=== PATIENT | female | born 1940 | race Caucasian/White ===

== ENCOUNTER 2019-04-26 15:18 | Inpatient (IN) ==
--- NOTE | 2019-04-26 15:29 | Emergency Department Note ---
Disposition Clinical Impression: Atrial fibrillation with rapid ventricular response Pulmonary embolism Qualifiers: Pulmonary embolism type: other Chronicity: acute Acute cor pulmonale presence: without acute cor pulmonale Qualified Code(s): I26.99 - Other pulmonary embolism without acute cor pulmonale Congestive heart failure Qualifiers: Heart failure type: high output Qualified Code(s): I50.83 - High output heart failure Disposition: Admitted As Inpatient Condition: Fair Time of Disposition: 01:08 SOB HPI - General Chief Complaint: ED Shortness of Breath/Dyspnea Stated Complaint: SHEILA Time Seen by Provider: 04/26/19 15:22 Source: patient, family, EMS Mode of arrival: EMS Limitations: no limitations Nursing Notes Reviewed: Yes Vital Signs Reviewed: Yes - History of Present Illness 78-year-old female, past medical history of diabetes, hypertension, hypercholesterolemia, frequent urinary tract infections currently treated by [facility], remote history of endometrial cancer with chemotherapy radiation a complete hysterectomy in 2007. No known history of congestive heart failure p resenting for 2 day history of gradually progressively worsening bilateral lower extremity swelling with rapidly progressing worsening shortness of breath today while at her PCPs office. Patient states she currently has no lightheadedness or dizziness, she has no chest pain, she is otherwise in no acute distress, or sating well without conversational dyspnea. Pt Subjective Complaint: shortness of breath Onset (ago): day(s) Context: recent illness Severity: moderate Consistency/Duration: gradually worsening Improves with: oxygen Worsens with: exertion Known history of: diabetes Associated symptoms: Reports: denies other symptoms (Lungs) Treatment prior to arrival: oxygen Cough present: No (Ur is a) - Related Data Home oxygen amount: none Home Medications Medication Instructions Recorded Confirmed Atenolol [Tenormin] 50 mg PO HS 04/26/19 04/26/19 Lisinopril [Zestril] 5 mg PO BID 04/26/19 04/26/19 metFORMIN [Glucophage] 1,000 mg PO BIDWM 04/26/19 04/26/19 Allergies Allergy/AdvReac Type Severity Reaction Status Date / Time No Known Allergies Allergy Verified 04/26/19 15:22 Review of Systems: *See History of Present Illness for more detail Constitutional: Denies: fever, chills Cardiovascular: Denies: chest pain Respiratory: Patient admits to progressive dyspnea. Denies: cough, hemoptysis Gastrointestinal: Denies: abdominal pain, nausea, vomiting, diarrhea, constipation, hematemesis, melena, hematochezia Genitourinary: Denies: hematuria Musculoskeletal: Patient admits to bilateral lower extremity swelling Denies: back pain, neck pain Neurological: Denies: headache, weakness, lightheadedness/dizziness, numbness, paresthesias, difficulty with ambulation. Endocrine: Denies: fatigue All systems ED: reviewed and negative except as stated. Review of Systems: As Per HPI Physical Exam Constitutional: No acute distress, [id number], engaged to conversation, speech is fluid, answers questions appropriately Neuro: GCS 15, no overt focal neurological deficits Head: Atraumatic, normocephalic Eyes: Pupils equal, round and reactive to light, no scleral icterus, no conjunctival injection Neck: Trachea midline without deviation. Anterior neck is supple without s welling. *Chest: Symmetric chest wall rise *Heart: Cardiac rhythm and rate are regular with S1 and S2 , no S3 or S4 appreciated, no murmurs, gallops, rubs, or clicks. *Lungs: Lungs are clear to auscultation bilaterally, without accessory muscle use or prolonged expiratory phase. No wheezes, rhonchi or stridor appreciated. Abdomen: Abdomen is flat, soft to palpation, normal bowel sounds. No abdominal bruit auscultated. Non-distended, non-rigid, no organomegaly, no ascites appreciated. No pulsatile mass, no tenderness or guarding to palpation in all four quadrants, no rebound Extremities: 2+ pitting edema noted in bilateral lower extremities. Pulses/motor intact in all 4 extremities. Psychiatric exam: Patient displays a normal affect and mood for the environment. No overt signs of hallucination. Integumentary: There is 2+ pitting edema noted in bilateral lower extremity up to the knees. Skin is otherwise warm, dry, intact, normal color. No rash, cyanosis, diaphoresis, erythema, or pallor - General Limitations: no limitations General appearance: alert, in no apparent distress Course Course Narrative: Patient has no history of congestive heart failure, she does have hypertension, hypercholesterolemia and diabetes. Concern for new onset heart failure we will establish IV at this time and attempted vagal maneuvers for the management of tachycardia. Patient does not respond to this we will begin chemical cardioversion issues currently asymptomatic. Otherwise laboratory analysis to include CBC, BMP, BNP, d-dimer, troponin, EKG/old EKG, chest x-ray. - Reevaluation(s) Reevaluation #1: 1600: We attempted chemical cardioversion with adenosine after sledding risks and benefits with the patient and her at bedside. The patient verbally consented to this procedure and cardioversion was attempted with 12 mg of adenosine with saline flush and appropriate elevation of the extremity. The patient did cardiovert into the 80 bpm range and we noted a sinus rhythm at that time. The patient spontaneously proceeded back to a supraventricular tachycardia at a rate of 150 bpm. Patient did have some discomfort with dyspnea and chest heaviness during the procedure which resolved spontaneously quickly after the procedure was completed. The patient was amiable to further doses of adenosine at this time we will proceed to Cardizem bolus with drip initiated for the management of supraventricular tachycardia. The patient heart at bedside verbalized their understanding and agreement this plan. Reevaluation #2: 1710: Patient found to have elevated d-dimer and hypokalemia with potassium level 3.1. I have added 40 mEq of by mouth potassium at this point for replacement. Patient will be sent to CT for CT angiogram of the chest due to concern for blood clot. Vital Signs Temperature 99.2 F 04/26/19 15:22 Pulse Rate 151 04/26/19 15:22 Respiratory Rate 20 04/26/19 15:22 Blood Pressure 159/110 04/26/19 15:22 O2 Sat by Pulse Oximetry 97 04/26/19 15:22 Temperature 98.1 F 04/26/19 22:39 Pulse Rate 151 04/26/19 22:39 Respiratory Rate 19 04/26/19 22:39 Blood Pressure 159/90 04/26/19 22:39 O2 Sat by Pulse Oximetry 92 04/26/19 22:39 Oxygen Delivery Oxygen Delivery Nasal Cannula Procedures - Ultrasound-Other Narrative: Bedside ultrasound was performed by myself with images uploaded axis some interpreted by me. Patient's bedside echo shows no evidence of cor pulmonale, there is a small pericardial effusion noted with no evidence of tamponade. Shortness of Breath/Dyspnea - MDM Narrative Medical decision making narrative: Patient found to have elevated BNP consistent with CHF exacerbation, CTA shows multiple nonobstructing bilateral pulmonary embolism. Patient without right ventricular dilation on bedside ultrasound. Patient be admitted to hospital medicine service for further evaluation and management of new onset atrial fibrillation in the setting of pulmonary embolism and CHF. - Lab Data Lab results reviewed: Yes I reviewed the patient's lab results. Result diagrams: 04/26/19 15:36 04/26/19 15:36 Lab Results 04/26/19 04/26/19 04/26/19 Range/Units 15:36 15:36 15:36 WBC 11.9 H (4.3-11.1) K/mcL RBC 4.43 (3.82-4.97) M/mcL Hgb 13.0 (11.5-15.4) g/dL Hct 41.6 (35.3-44.9) % MCV 93.9 (83.0-100.0) fL MCH 29.3 (28.0-33.3) pg MCHC 31.3 L (31.6-35.5) g/dL RDW 15.9 H (11.5-14.5) % Plt Count 292 (140-400) K/mcL MPV 10.1 (9.4-12.4) fL Immature Gran % 0.5 (0-4) % Seg Neutrophils % 78.8 % Lymphocytes % 12.5 % Monocytes % 7.2 % Eosinophils % 0.8 % Basophils % 0.2 % Neutrophils # 9.4 H (1.6-8.9) K/mcL Lymphocytes # 1.5 (0.6-4.6) K/mcL Monocytes # 0.9 (0.0-1.3) K/mcL Eosinophils # 0.1 (0.0-0.6) K/mcL Basophils # 0.0 (0.0-0.2) K/mcL D-Dimer 802 H (0-500) ng/mLFEU Sodium 142 (136-145) mEq/L Potassium 3.1 L (3.5-5.1) mEq/L Chloride 102 (98-107) mEq/L Carbon Dioxide 26 (23-29) mEq/L BUN 10 (8-23) mg/dL Creatinine 0.72 (0.60-1.20) mg/dL Est GFR ( Amer) > 60 (> 60) Est GFR (Non-Af Amer) > 60 (> 60) BUN/Creatinine Ratio 14 (6-26) Glucose 123 H (70-105) mg/dL Calculated Osmolality 294 (280-300) Calcium 9.0 (8.6-10.3) mg/dL Troponin I < 0.03 (< 0.04) ng/mL B-Natriuretic Peptide (Less than 100) pg/mL Urine Color (Yellow) Urine Clarity (Clear) Urine pH (5.0-8.0) pH Units Ur Specific Bent (1.010-1.025) Urine Protein (Neg-Trace) mg/dL Urine Glucose (UA) (Normal) mg/dL Urine Ketones (Negative) mg/dL Urine Blood (Negative) Urine Nitrite (Negative) Urine Bilirubin (Negative) Urine Urobilinogen (Normal) mg/dL Ur Leukocyte Esterase (Negative) Urine Microscopic RBC (0-3) per hpf Urine Microscopic WBC (0-3) per hpf Ur Squamous Epith Cells (None-Few) per lpf Urine Bacteria (None-Few) per hpf Hyaline Casts (None-Few) per lpf Ur Culture Indicated? (NO) 04/26/19 04/26/19 Range/Units 15:36 20:54 WBC (4.3-11.1) K/mcL RBC (3.82-4.97) M/mcL Hgb (11.5-15.4) g/dL Hct (35.3-44.9) % MCV (83.0-100.0) fL MCH (28.0-33.3) pg MCHC (31.6-35.5) g/dL RDW (11.5-14.5) % Plt Count (140-400) K/mcL MPV (9.4-12.4) fL Immature Gran % (0-4) % Seg Neutrophils % % Lymphocytes % % Monocytes % % Eosinophils % % Basophils % % Neutrophils # (1.6-8.9) K/mcL Lymphocytes # (0.6-4.6) K/mcL Monocytes # (0.0-1.3) K/mcL Eosinophils # (0.0-0.6) K/mcL Basophils # (0.0-0.2) K/mcL D-Dimer (0-500) ng/mLFEU Sodium (136-145) mEq/L Potassium (3.5-5.1) mEq/L Chloride (98-107) mEq/L Carbon Dioxide (23-29) mEq/L BUN (8-23) mg/dL Creatinine (0.60-1.20) mg/dL Est GFR ( Amer) (> 60) Est GFR (Non-Af Amer) (> 60) BUN/Creatinine Ratio (6-26) Glucose (70-105) mg/dL Calculated Osmolality (280-300) Calcium (8.6-10.3) mg/dL Troponin I (< 0.04) ng/mL B-Natriuretic Peptide 203 H (Less than 100) pg/mL Urine Color Yellow (Yellow) Urine Clarity Cloudy A (Clear) Urine pH 5.0 (5.0-8.0) pH Units Ur Specific Bent 1.029 H (1.010-1.025) Urine Protein Negative (Neg-Trace) mg/dL Urine Glucose (UA) Normal (Normal) mg/dL Urine Ketones Trace H (Negative) mg/dL Urine Blood Small H (Negative) Urine Nitrite Positive A (Negative) Urine Bilirubin Negative (Negative) Urine Urobilinogen Normal (Normal) mg/dL Ur Leukocyte Esterase Large H (Negative) Urine Microscopic RBC 5-15 H (0-3) per hpf Urine Microscopic WBC TNTC H (0-3) per hpf Ur Squamous Epith Cells Many H (None-Few) per lpf Urine Bacteria Moderate H (None-Few) per hpf Hyaline Casts None Seen (None-Few) per lpf Ur Culture Indicated? YES A (NO) - Radiology Data Radiology results reviewed: Yes I reviewed the patient's radiology results. Chest X-Ray 04/26/19 15:26 IMPRESSION: Findings of pulmonary edema with small-moderate bilateral pleural effusions and bibasilar atelectasis. D/ / Zackary Hodges MD / Zackary Hodges MD Interpreting Provider: Zackary Hodges MD Chest CTA 04/26/19 17:09 IMPRESSION: Moderate right pleural effusion and small left pleural effusion. Diffuse ground-glass opacity, likely reflecting edema. Intermittent occlusion of bibasilar bronchi, suggestive of mucous plugging/airways disease. Consolidation within bilateral lower lobes, lingula, right middle lobe, likely atelectasis in the absence of clinical signs or symptoms of pneumonia. Findings are suggestive of small nonocclusive emboli within the right upper and left lower lobes. 9 mm indeterminate left upper lobe pulmonary nodule. 2 cm low-density right lower lobe nodule which may be cystic, a chronic, or reflect pseudotumor. Chest CT follow-up after treatment and resolution of acute symptoms is recommended. 2 cm right adrenal gland nodule, indeterminate by CT criteria. In the nonacute setting, adrenal protocol CT could be considered for further assessment. Moderate hiatal hernia. Findings were discussed with Alirio Padilla at 19:05 on 04/26/2019. D/ / Triston Levine MD / Triston Levine MD Interpreting Provider: Triston Levine MD - EKG Data EKG attestation: Yes I reviewed and interpreted this EKG. EKG results narrative: 1530: Patient EKG shows a supraventricular tachycardia with a heart of 150 bpm, MD interval of 131 ms, QS duration 70 ms, QT/QTc intervals of 296/468 ms respectively. There are no significant ST segment elevations, depressions, pathologic Q waves, abnormal T-wave inversion, nor any sense acute ischemic change. This EKG that was performed today is generally consistent in morphology with prior EKG performed on 06/26/2013. 1545: Patient EKG performed during adenosine administration shows atrial flutter with a predominant 21 AV block with a heart rate of 143 bpm, chemistries rate 1 ms, QT/QTc interval 312/4 to most things. I do not agree with [employer] interpretation of this rhythm and feel that this represents atrial fibrillation. There are still no signs of acute ischemic change and EKG is generally consistent in morphology with priors. 1608: After chemical cardioversion with Cardizem the patient's EKG shows an atrial flutter with heart rate of 1 28 bpm, QS duration of 85 ms, QT/QTc interval 308/450 ms respectively. I do not agree with the [employer] analysis of this rhythm and instead find it to be atrial fibrillation. There is still no acute ischemic change noted on the EKG analysis.
[2019-04-26] MEDS ORDERED: *HR* Adenosine 6 MG/2 ML SYRINGE IVP ONE (15:38)
[2019-04-26 16:01] LABS: Basophils % 0.2 %; Eosinophils # 0.1 K/mcL (0.0-0.6); Eosinophils % 0.8 %; Hematocrit 41.6 % (35.3-44.9); Immature Granulocytes % 0.5 % (0-4); Lymphocytes # 1.5 K/mcL (0.6-4.6); Lymphocytes % 12.5 %; Mean Corpuscular HGB Conc 31.3 g/dL (31.6-35.5); Mean Corpuscular Hemoglobin 29.3 pg (28.0-33.3); Mean Corpuscular Volume 93.9 fL (83.0-100.0); Mean Platelet Volume 10.1 fL (9.4-12.4); Monocytes # 0.9 K/mcL (0.0-1.3); Monocytes % 7.2 %; Neutrophils # 9.4 K/mcL (1.6-8.9); Platelet Count 292 K/mcL (140-400); Red Blood Count 4.43 M/mcL (3.82-4.97); Red Cell Distribution Width 15.9 % (11.5-14.5); Segmented Neutrophils % 78.8 %; White Blood Count 11.9 K/mcL (4.3-11.1)
[2019-04-26 16:20] LABS: BUN/Creatinine Ratio 14 (6-26); Blood Urea Nitrogen 10 mg/dL (8-23); Carbon Dioxide 26 mEq/L (23-29); Chloride 102 mEq/L (98-107); Glucose 123 mg/dL (70-105); Osmolality,Calculated 294 (280-300); Potassium 3.1 mEq/L (3.5-5.1); Sodium 142 mEq/L (136-145); eGFR For African Americans > 60 (> 60); eGFR For Non-African Americans > 60 (> 60)
[2019-04-26 16:21] LABS: Troponin I < 0.03 ng/mL (< 0.04)
[2019-04-26] MEDS ORDERED: Isovue-370 500 ML BOTTLE IVP ONE (17:09)
[2019-04-26] MEDS ORDERED: *HR* Enoxaparin 120 MG/0.8 ML SYRINGE SQ STA (19:27)
--- NOTE | 2019-04-26 19:38 | Emergency Department Note ---
Disposition Clinical Impression: Atrial fibrillation with rapid ventricular response Pulmonary embolism Qualifiers: Pulmonary embolism type: other Chronicity: acute Acute cor pulmonale presence: without acute cor pulmonale Qualified Code(s): I26.99 - Other pulmonary embolism without acute cor pulmonale Congestive heart failure Qualifiers: Heart failure type: unspecified Qualified Code(s): I50.9 - Disposition: Admitted As Inpatient Condition: Fair Time of Disposition: 01:08 General Adult HPI - General Chief complaint: ED Shortness of Breath/Dyspnea Stated complaint: SHEILA Time Seen by Provider: 04/26/19 15:22 Source: patient, family, EMS Mode of arrival: EMS Limitations: no limitations - History of Present Illness Pain Scale: 5 - Related Data Home Medications Medication Instructions Recorded Confirmed Atenolol [Tenormin] 50 mg PO HS 04/26/19 04/26/19 Lisinopril [Zestril] 5 mg PO BID 04/26/19 04/26/19 metFORMIN [Glucophage] 1,000 mg PO BIDWM 04/26/19 04/26/19 Allergies Allergy/AdvReac Type Severity Reaction Status Date / Time No Known Allergies Allergy Verified 04/26/19 15:22 Past Medical History - Past Medical History Medical history: Reports: cancer, diabetes, hypertension Psychiatric history: Reports: no psych history - Social History Smoking Status: Former smoker Alcohol use: Reports: occasionally Drug use: Reports: none Physical Exam - General Limitations: no limitations General appearance: alert, in no apparent distress Course Vital Signs Temperature 99.2 F 04/26/19 15:22 Pulse Rate 151 04/26/19 15:22 Respiratory Rate 20 04/26/19 15:22 Blood Pressure 159/110 04/26/19 15:22 O2 Sat by Pulse Oximetry 97 04/26/19 15:22 Temperature 97.9 F 04/27/19 12:09 Pulse Rate 146 04/27/19 12:09 Respiratory Rate 18 04/27/19 12:09 Blood Pressure 128/61 04/27/19 12:09 O2 Sat by Pulse Oximetry 92 04/27/19 12:09 Oxygen Delivery Oxygen Delivery Nasal Cannula Medical Decision Making - Lab Data Result diagrams: 04/27/19 03:13 04/27/19 03:13 Lab Results 04/26/19 04/26/19 04/26/19 Range/Units 15:36 15:36 15:36 WBC 11.9 H (4.3-11.1) K/mcL RBC 4.43 (3.82-4.97) M/mcL Hgb 13.0 (11.5-15.4) g/dL Hct 41.6 (35.3-44.9) % MCV 93.9 (83.0-100.0) fL MCH 29.3 (28.0-33.3) pg MCHC 31.3 L (31.6-35.5) g/dL RDW 15.9 H (11.5-14.5) % Plt Count 292 (140-400) K/mcL MPV 10.1 (9.4-12.4) fL Immature Gran % 0.5 (0-4) % Seg Neutrophils % 78.8 % Lymphocytes % 12.5 % Monocytes % 7.2 % Eosinophils % 0.8 % Basophils % 0.2 % Neutrophils # 9.4 H (1.6-8.9) K/mcL Lymphocytes # 1.5 (0.6-4.6) K/mcL Monocytes # 0.9 (0.0-1.3) K/mcL Eosinophils # 0.1 (0.0-0.6) K/mcL Basophils # 0.0 (0.0-0.2) K/mcL D-Dimer 802 H (0-500) ng/mLFEU Sodium 142 (136-145) mEq/L Potassium 3.1 L (3.5-5.1) mEq/L Chloride 102 (98-107) mEq/L Carbon Dioxide 26 (23-29) mEq/L BUN 10 (8-23) mg/dL Creatinine 0.72 (0.60-1.20) mg/dL Est GFR ( Amer) > 60 (> 60) Est GFR (Non-Af Amer) > 60 (> 60) BUN/Creatinine Ratio 14 (6-26) Glucose 123 H (70-105) mg/dL POC Glucose (70-99) mg/dL Est Mean Plasma Glucose mg/dl Hemoglobin A1c ( - 5.6) % Calculated Osmolality 294 (280-300) Calcium 9.0 (8.6-10.3) mg/dL Magnesium (1.6-2.6) mg/dL Troponin I < 0.03 (< 0.04) ng/mL B-Natriuretic Peptide (Less than 100) pg/mL Triglycerides (< 150) mg/dL Cholesterol (< 200) mg/dL LDL Cholesterol, Calc (0-99) mg/dL VLDL Cholesterol, Calc (< 31) mg/dL HDL Cholesterol (40-59) mg/dL Cholesterol/HDL Ratio (0-4.9) Urine Color (Yellow) Urine Clarity (Clear) Urine pH (5.0-8.0) pH Units Ur Specific [place] (1.010-1.025) Urine Protein (Neg-Trace) mg/dL Urine Glucose (UA) (Normal) mg/dL Urine Ketones (Negative) mg/dL Urine Blood (Negative) Urine Nitrite (Negative) Urine Bilirubin (Negative) Urine Urobilinogen (Normal) mg/dL Ur Leukocyte Esterase (Negative) Urine Microscopic RBC (0-3) per hpf Urine Microscopic WBC (0-3) per hpf Ur Squamous Epith Cells (None-Few) per lpf Urine Bacteria (None-Few) per hpf Hyaline Casts (None-Few) per lpf Ur Culture Indicated? (NO) 04/26/19 04/26/19 04/26/19 Range/Units 15:36 20:54 21:51 WBC (4.3-11.1) K/mcL RBC (3.82-4.97) M/mcL Hgb (11.5-15.4) g/dL Hct (35.3-44.9) % MCV (83.0-100.0) fL MCH (28.0-33.3) pg MCHC (31.6-35.5) g/dL RDW (11.5-14.5) % Plt Count (140-400) K/mcL MPV (9.4-12.4) fL Immature Gran % (0-4) % Seg Neutrophils % % Lymphocytes % % Monocytes % % Eosinophils % % Basophils % % Neutrophils # (1.6-8.9) K/mcL Lymphocytes # (0.6-4.6) K/mcL Monocytes # (0.0-1.3) K/mcL Eosinophils # (0.0-0.6) K/mcL Basophils # (0.0-0.2) K/mcL D-Dimer (0-500) ng/mLFEU Sodium (136-145) mEq/L Potassium (3.5-5.1) mEq/L Chloride (98-107) mEq/L Carbon Dioxide (23-29) mEq/L BUN (8-23) mg/dL Creatinine (0.60-1.20) mg/dL Est GFR ( Amer) (> 60) Est GFR (Non-Af Amer) (> 60) BUN/Creatinine Ratio (6-26) Glucose (70-105) mg/dL POC Glucose (70-99) mg/dL Est Mean Plasma Glucose mg/dl Hemoglobin A1c ( - 5.6) % Calculated Osmolality (280-300) Calcium (8.6-10.3) mg/dL Magnesium 1.5 L (1.6-2.6) mg/dL Troponin I 0.04 H* (< 0.04) ng/mL B-Natriuretic Peptide 203 H (Less than 100) pg/mL Triglycerides (< 150) mg/dL Cholesterol (< 200) mg/dL LDL Cholesterol, Calc (0-99) mg/dL VLDL Cholesterol, Calc (< 31) mg/dL HDL Cholesterol (40-59) mg/dL Cholesterol/HDL Ratio (0-4.9) Urine Color Yellow (Yellow) Urine Clarity Cloudy A (Clear) Urine pH 5.0 (5.0-8.0) pH Units Ur Specific [place] 1.029 H (1.010-1.025) Urine Protein Negative (Neg-Trace) mg/dL Urine Glucose (UA) Normal (Normal) mg/dL Urine Ketones Trace H (Negative) mg/dL Urine Blood Small H (Negative) Urine Nitrite Positive A (Negative) Urine Bilirubin Negative (Negative) Urine Urobilinogen Normal (Normal) mg/dL Ur Leukocyte Esterase Large H (Negative) Urine Microscopic RBC 5-15 H (0-3) per hpf Urine Microscopic WBC TNTC H (0-3) per hpf Ur Squamous Epith Cells Many H (None-Few) per lpf Urine Bacteria Moderate H (None-Few) per hpf Hyaline Casts None Seen (None-Few) per lpf Ur Culture Indicated? YES A (NO) 04/26/19 04/26/19 04/27/19 Range/Units 21:51 22:32 03:13 WBC (4.3-11.1) K/mcL RBC (3.82-4.97) M/mcL Hgb (11.5-15.4) g/dL Hct (35.3-44.9) % MCV (83.0-100.0) fL MCH (28.0-33.3) pg MCHC (31.6-35.5) g/dL RDW (11.5-14.5) % Plt Count (140-400) K/mcL MPV (9.4-12.4) fL Immature Gran % (0-4) % Seg Neutrophils % % Lymphocytes % % Monocytes % % Eosinophils % % Basophils % % Neutrophils # (1.6-8.9) K/mcL Lymphocytes # (0.6-4.6) K/mcL Monocytes # (0.0-1.3) K/mcL Eosinophils # (0.0-0.6) K/mcL Basophils # (0.0-0.2) K/mcL D-Dimer (0-500) ng/mLFEU Sodium (136-145) mEq/L Potassium (3.5-5.1) mEq/L Chloride (98-107) mEq/L Carbon Dioxide (23-29) mEq/L BUN (8-23) mg/dL Creatinine (0.60-1.20) mg/dL Est GFR ( Amer) (> 60) Est GFR (Non-Af Amer) (> 60) BUN/Creatinine Ratio (6-26) Glucose (70-105) mg/dL POC Glucose 154 H (70-99) mg/dL Est Mean Plasma Glucose 157 mg/dl Hemoglobin A1c 7.1 H ( - 5.6) % Calculated Osmolality (280-300) Calcium (8.6-10.3) mg/dL Magnesium (1.6-2.6) mg/dL Troponin I 0.03 (< 0.04) ng/mL B-Natriuretic Peptide (Less than 100) pg/mL Triglycerides (< 150) mg/dL Cholesterol (< 200) mg/dL LDL Cholesterol, Calc (0-99) mg/dL VLDL Cholesterol, Calc (< 31) mg/dL HDL Cholesterol (40-59) mg/dL Cholesterol/HDL Ratio (0-4.9) Urine Color (Yellow) Urine Clarity (Clear) Urine pH (5.0-8.0) pH Units Ur Specific [place] (1.010-1.025) Urine Protein (Neg-Trace) mg/dL Urine Glucose (UA) (Normal) mg/dL Urine Ketones (Negative) mg/dL Urine Blood (Negative) Urine Nitrite (Negative) Urine Bilirubin (Negative) Urine Urobilinogen (Normal) mg/dL Ur Leukocyte Esterase (Negative) Urine Microscopic RBC (0-3) per hpf Urine Microscopic WBC (0-3) per hpf Ur Squamous Epith Cells (None-Few) per lpf Urine Bacteria (None-Few) per hpf Hyaline Casts (None-Few) per lpf Ur Culture Indicated? (NO) 04/27/19 04/27/19 04/27/19 Range/Units 03:13 03:13 03:13 WBC 10.7 (4.3-11.1) K/mcL RBC 4.08 (3.82-4.97) M/mcL Hgb 11.8 (11.5-15.4) g/dL Hct 39.0 (35.3-44.9) % MCV 95.6 (83.0-100.0) fL MCH 28.9 (28.0-33.3) pg MCHC 30.3 L (31.6-35.5) g/dL RDW 15.9 H (11.5-14.5) % Plt Count 290 (140-400) K/mcL MPV 10.0 (9.4-12.4) fL Immature Gran % 0.6 (0-4) % Seg Neutrophils % 81.4 % Lymphocytes % 8.9 % Monocytes % 8.2 % Eosinophils % 0.6 % Basophils % 0.3 % Neutrophils # 8.7 (1.6-8.9) K/mcL Lymphocytes # 1.0 (0.6-4.6) K/mcL Monocytes # 0.9 (0.0-1.3) K/mcL Eosinophils # 0.1 (0.0-0.6) K/mcL Basophils # 0.0 (0.0-0.2) K/mcL D-Dimer (0-500) ng/mLFEU Sodium 143 (136-145) mEq/L Potassium 3.3 L (3.5-5.1) mEq/L Chloride 104 (98-107) mEq/L Carbon Dioxide 29 (23-29) mEq/L BUN 7 L (8-23) mg/dL Creatinine 0.75 (0.60-1.20) mg/dL Est GFR ( Amer) > 60 (> 60) Est GFR (Non-Af Amer) > 60 (> 60) BUN/Creatinine Ratio 9 (6-26) Glucose 162 H (70-105) mg/dL POC Glucose (70-99) mg/dL Est Mean Plasma Glucose mg/dl Hemoglobin A1c ( - 5.6) % Calculated Osmolality 298 (280-300) Calcium 8.4 L (8.6-10.3) mg/dL Magnesium 1.4 L (1.6-2.6) mg/dL Troponin I (< 0.04) ng/mL B-Natriuretic Peptide 220 H (Less than 100) pg/mL Triglycerides 120 (< 150) mg/dL Cholesterol 147 (< 200) mg/dL LDL Cholesterol, Calc 84 (0-99) mg/dL VLDL Cholesterol, Calc 24 (< 31) mg/dL HDL Cholesterol 39 L (40-59) mg/dL Cholesterol/HDL Ratio 3.8 (0-4.9) Urine Color (Yellow) Urine Clarity (Clear) Urine pH (5.0-8.0) pH Units Ur Specific [place] (1.010-1.025) Urine Protein (Neg-Trace) mg/dL Urine Glucose (UA) (Normal) mg/dL Urine Ketones (Negative) mg/dL Urine Blood (Negative) Urine Nitrite (Negative) Urine Bilirubin (Negative) Urine Urobilinogen (Normal) mg/dL Ur Leukocyte Esterase (Negative) Urine Microscopic RBC (0-3) per hpf Urine Microscopic WBC (0-3) per hpf Ur Squamous Epith Cells (None-Few) per lpf Urine Bacteria (None-Few) per hpf Hyaline Casts (None-Few) per lpf Ur Culture Indicated? (NO) 04/27/19 Range/Units 05:53 WBC (4.3-11.1) K/mcL RBC (3.82-4.97) M/mcL Hgb (11.5-15.4) g/dL Hct (35.3-44.9) % MCV (83.0-100.0) fL MCH (28.0-33.3) pg MCHC (31.6-35.5) g/dL RDW (11.5-14.5) % Plt Count (140-400) K/mcL MPV (9.4-12.4) fL Immature Gran % (0-4) % Seg Neutrophils % % Lymphocytes % % Monocytes % % Eosinophils % % Basophils % % Neutrophils # (1.6-8.9) K/mcL Lymphocytes # (0.6-4.6) K/mcL Monocytes # (0.0-1.3) K/mcL Eosinophils # (0.0-0.6) K/mcL Basophils # (0.0-0.2) K/mcL D-Dimer (0-500) ng/mLFEU Sodium (136-145) mEq/L Potassium (3.5-5.1) mEq/L Chloride (98-107) mEq/L Carbon Dioxide (23-29) mEq/L BUN (8-23) mg/dL Creatinine (0.60-1.20) mg/dL Est GFR ( Amer) (> 60) Est GFR (Non-Af Amer) (> 60) BUN/Creatinine Ratio (6-26) Glucose (70-105) mg/dL POC Glucose 149 H (70-99) mg/dL Est Mean Plasma Glucose mg/dl Hemoglobin A1c ( - 5.6) % Calculated Osmolality (280-300) Calcium (8.6-10.3) mg/dL Magnesium (1.6-2.6) mg/dL Troponin I (< 0.04) ng/mL B-Natriuretic Peptide (Less than 100) pg/mL Triglycerides (< 150) mg/dL Cholesterol (< 200) mg/dL LDL Cholesterol, Calc (0-99) mg/dL VLDL Cholesterol, Calc (< 31) mg/dL HDL Cholesterol (40-59) mg/dL Cholesterol/HDL Ratio (0-4.9) Urine Color (Yellow) Urine Clarity (Clear) Urine pH (5.0-8.0) pH Units Ur Specific [place] (1.010-1.025) Urine Protein (Neg-Trace) mg/dL Urine Glucose (UA) (Normal) mg/dL Urine Ketones (Negative) mg/dL Urine Blood (Negative) Urine Nitrite (Negative) Urine Bilirubin (Negative) Urine Urobilinogen (Normal) mg/dL Ur Leukocyte Esterase (Negative) Urine Microscopic RBC (0-3) per hpf Urine Microscopic WBC (0-3) per hpf Ur Squamous Epith Cells (None-Few) per lpf Urine Bacteria (None-Few) per hpf Hyaline Casts (None-Few) per lpf Ur Culture Indicated? (NO) Attestation Statement - Attestation Attestation: I examined this patient and my medical decision-making was reviewed with the Resident Physician. I agree with the documented findings, disposition and treatment plan as described except to the extent set forth below. Patient presents with a narrow complex regular tachycardia at 150 bpm with minimal to no [id number] variability. No chest pain, shortness of breath, lightheadedness, dizziness, syncope or presyncope. 12 mg of adenosine was adm inistered which initially induced asystole, no sawtooth pattern was observed (somewhat surprisingly), and she converted back rather quickly into the narrow complex regular tachycardia with a rate of 150. IV diltiazem bolus was administered followed by a drip at 10 mg per hour. After a second bolus was given, the patient's heart rate had settled and around 100 bpm, but has been volatile since then. CT scan, which is done due to significantly elevated d- dimer, demonstrated bilateral pulmonary emboli. There was no CT evidence for right heart strain. I was present for Dr. Wilkinson's EKG interpretation as well as for his echocardiogram at bedside. She did not demonstrate echocardiographic signs of right heart strain. The right ventricular size was not enlarged, septal motion was normal. McConnel sign was negative. BNP is elevated at around 800. Troponin is negative. She is been anticoagulated (no contraindications for anticoagulation are present), and will be admitted. Critical care time: I was directly and primarily involved in the care of this patient for 40 minutes excluding procedures.
[2019-04-26 21:03] LABS: Bilirubin,Urine Negative (Negative); Blood,Urine Small (Negative); Clarity,Urine Cloudy (Clear); Color,Urine Yellow (Yellow); Glucose,Urine (UA) Normal (Normal); Ketones,Urine Trace mg/dL (Negative); Leukocyte Esterase,Urine Large (Negative); Nitrite,Urine Positive (Negative); Protein,Urine Negative (Neg-Trace); Specific Gravity,Urine 1.029 (1.010-1.025); Urobilinogen,Urine Normal (Normal)
[2019-04-26 21:04] LABS: Bacteria,Urine Moderate per hpf (None-Few); Hyaline Casts,Urine None Seen per lpf (None-Few); Squamous Epithelial Cell,Urine Many per lpf (None-Few); WBC,Urine TNTC per hpf (0-3)
[2019-04-26] MEDS ORDERED: Naloxone 0.4 MG/ML INJ IVP PRN (21:28)
[2019-04-26] MEDS ORDERED: D5% in Water 1,000 ML IVC PRN (21:32)
[2019-04-26] MEDS ORDERED: *HR* Dextrose 50 % in Water (Syg) 50 ML SYRINGE IVP PRN (21:32)
[2019-04-26] MEDS ORDERED: Dextrose Gel 15 GM/37.5 ML TUBE PO PRN ×2 (21:32)
[2019-04-26] MEDS ORDERED: *HR* Metoprolol 5 MG/5 ML VIAL IVP ONE (21:56)
[2019-04-26 22:18] LABS: Estimated Average Glucose 157 mg/dl
[2019-04-26] MEDS ORDERED: Furosemide 20 MG/2 ML VIAL IVP ONE (22:18)
--- NOTE | 2019-04-26 22:28 | Internal Med History&Physical ---
<Helio Charles - Last Filed: 04/26/19 23:06> Date of Encounter: 04/26/19 Time of Encounter: 21:20 Internal Medicine - H&P: HPI Chief complaint: Lower extremity swelling and SOB Admitted From: Emergency Dept Plans for Post Hospital Care: Home History of present illness: Ms. Coronado is a 78 year old female with history of diabetes, hypertension, endometrial cancer status post hysterectomy and treatment in 2007, chronic urinary tract infection with prophylactic antibiotic management by Dr. Hidalgo who presented to the ED with 2 day history of shortness of breath and bilateral lower extremity swelling. She says that approximately 2 days ago she started to notice swelling in her lower extremities which was worse on her right foot rapidly increased to include both of her lower extremities. In addition of this she was having worsening shortness of breath which also got rapidly worse and was very poor over the last day. She said that she also is noticing that her heart rate was getting fast. She says that she did notice that she had some shortness of breath associated with this but it was not exactly the normal shortness of breath that she has experienced in the past. She said more so, she felt that it was more difficult to take a deep breath and she would expect. She went to her primary care physician for workup, and she said that she was told that she needed to go to the hospital. She has not noticed any fevers, chills, sweats. She has no sick contacts. She has not noticed any changes in her blood glucose at home. Denies any cough, sputum production, hemoptysis. Overall she has no other acute complaints. She does have history of chronic urinary tract infection which is managed by Dr. Hidalgo and she is intermittently on antibiotics for prophylaxis. In the emergency department, the patient did have an EKG that showed rapid heart rate of 150 and appeared to be somewhat regular. She was concerning for SVT so the emergency department did one dose of adenosine which apparently did not break the rhythm. She was then placed on a diltiazem drip and the boluses of diltiazem did apparently bring her heart rate down in demonstrated atrial fibrillation with rapid ventricular response. She has, however remained in atrial fibrillation with rapid ventricular response with a rate near 150 at a rate of 20. The patient did have a CTA of the chest in the ED which demonstrated findings suggestive of small nonocclusive emboli in the right upper and left lower lobes as well as bibasilar atelectasis and suggestion of mucous plugging. She also did have moderate right pleural effusion and small left pleural effusion. The patient's labs were significant for WBC 11.9, K+ 3.1, and BNP 203. She will be admitted to medicine for further workup and management of Afib RVR and fluid overload. Past Med Surg Social Fam HX - Past Medical History Medical history: cancer, diabetes, hypertension Additional medical history: Endometrial CA Psychiatric history: no psych history - Social History Smoking Status: Former smoker Alcohol use: occasionally Drug use: none Internal Medicine - H&P: Meds Atenolol [Tenormin] 50 mg PO HS 04/26/19 [History] Lisinopril [Zestril] 5 mg PO BID 04/26/19 [History] metFORMIN [Glucophage] 1,000 mg PO BIDWM 04/26/19 [History] Allergy/AdvReac Type Severity Reaction Status Date / Time No Known Allergies Allergy Verified 04/26/19 15:22 All Systems PM: A 10-system review of systems was performed and is negative for pertinent findings except as documented above in the HPI. Review of systems: Constitutional: Denies fevers, chills, weight loss, generalized fatigue Head/Neck: Denies PENA, neck stiffness EENT: Denies vision changes/blurriness, rhinorrhea, congestion, sore throat CVS: Denies chest pain, palpitations. Admits to PROCTOR, orthopnea, PND for 2 days duration Pulm: Admits to sob. Denies cough, sputum production. GI: Denies abdominal pain, nausea, vomiting, constipation, melena, hematemasis. Admits to diarrhea which she associates with metformin. : Denies dysuria, increased frequency, urgency, hematuria Heme: Denies ease of bleeding or bruising MSK: Denies joint pain, limited ROM Skin: Denies rashes, ulcers, color changes Neuro: Denies PENA, paresthesias, focal deficits, ataxia - Constitutional Vitals: Temp Pulse Resp BP Pulse Ox 99.2 F 150 26 146/96 94 04/26/19 15:22 04/26/19 21:19 04/26/19 21:19 04/26/19 21:19 04/26/19 21:19 Exam: Gen: Vitals noted. No acute distress. Smell of urine present Eyes: anicteric sclerae, moist conjunctivae; no lid-lag; Pupils equal and re active to light HENT: Atraumatic; oropharynx clear with moist mucous membranes and no mucosal ulcerations; normal hard and soft palate Neck: Trachea midline; supple, no thyromegaly or lymphadenopathy Cardiac: RRR, no murmur, +S1/S2 Pulmonary: Diminished b/l with crackles in the bases b/l. No wheezes or rhonchi Abdomen: soft, tender to palpation in the upper abdomen, no guarding. No masses or hepatosplenomegaly MSK: ROM intact, no joint swelling noted Extremities: 1-2+ BLE edema (non-pitting), nontender calf, no cyanosis or clubbing. Erythema present, notably present on the left leg Skin: Normal temperature, turgor; no rash, ulcers or subcutaneous nodules Neuro: moves all extremities, no focal deficits. Psych: Appropriate mood and behavior. A&Ox3 Internal Med - H&P Results - Labs CBC & Chem 7: 04/26/19 15:36 04/26/19 15:36 Labs: Short CBC 04/26/19 Range/Units 15:36 WBC 11.9 H (4.3-11.1) K/mcL Hgb 13.0 (11.5-15.4) g/dL Hct 41.6 (35.3-44.9) % Plt Count 292 (140-400) K/mcL Neutrophils # 9.4 H (1.6-8.9) K/mcL BMP 04/26/19 15:36 Sodium 142 Potassium 3.1 L Chloride 102 Carbon Dioxide 26 BUN 10 Creatinine 0.72 Glucose 123 H Calcium 9.0 Cardiac Enzymes 04/26/19 Range/Units 15:36 Troponin I < 0.03 (< 0.04) ng/mL Urine 04/26/19 Range/Units 20:54 Urine Color Yellow (Yellow) Urine Clarity Cloudy A (Clear) Urine pH 5.0 (5.0-8.0) pH Units Ur Specific [place] 1.029 H (1.010-1.025) Urine Protein Negative (Neg-Trace) mg/dL Urine Glucose (UA) Normal (Normal) mg/dL - Impressions ITS Impressions Chest X-Ray 04/26/19 15:26 IMPRESSION: Findings of pulmonary edema with small-moderate bilateral pleural effusions and bibasilar atelectasis. D/ / Zackary Hodges MD / Zackary Hodges MD Interpreting Provider: Zackary Hodges MD Chest CTA 04/26/19 17:09 IMPRESSION: Moderate right pleural effusion and small left pleural effusion. Diffuse ground-glass opacity, likely reflecting edema. Intermittent occlusion of bibasilar bronchi, suggestive of mucous plugging/airways disease. Consolidation within bilateral lower lobes, lingula, right middle lobe, likely atelectasis in the absence of clinical signs or symptoms of pneumonia. Findings are suggestive of small nonocclusive emboli within the right upper and left lower lobes. 9 mm indeterminate left upper lobe pulmonary nodule. 2 cm low-density right lower lobe nodule which may be cystic, a chronic, or reflect pseudotumor. Chest CT follow-up after treatment and resolution of acute symptoms is recommended. 2 cm right adrenal gland nodule, indeterminate by CT criteria. In the nonacute setting, adrenal protocol CT could be considered for further assessment. Moderate hiatal hernia. Findings were discussed with Alirio Padilla at 19:05 on 04/26/2019. D/ / Triston Levine MD / Triston Levine MD Interpreting Provider: Triston Levine MD - Assessment and Plan (1) Atrial fibrillation with rapid ventricular response Current Visit: Yes Status: Acute Assessment and plan: Atrial fibrillation with rapid ventricular response, newly diagnosed Likely secondary to pulmonary status in setting of new PE Patient has HR of >150 on presentation Started on Cardizem Drip in ED at rate of 20 Required Lopressor push to control [id number] Plan Continue Cardizem drip Add Lopressor 25mg PO tonight, transition to Toprol XL in AM Replete potassium to 4 Cardiac monitoring Echo in AM Treat underlying PE with lovenox If Rate continues to be uncontrolled, consider digoxin vs amio Will likely require cardiology consult following complete workup (2) Pulmonary embolism Current Visit: Yes Status: Acute Assessment and plan: Pulmonary embolism, b/l, unprovoked Patient said she first noticed unilaterly right leg edema two days ago CTA shows nonobstructive b/l PE without infarcts or evidence of r/h strain No travel history, no active cancer diagnosis, no hormone treatment. Not a current smoker Patient has no evidence of SAGE or CKD, is a candidate of lovenox Will continue Lovenox, possibly transition to DOAC tomorrow Echo in AM Qualifiers: Pulmonary embolism type: other Chronicity: acute Acute cor pulmonale presence: without acute cor pulmonale Qualified Code(s): I26.99 - Other pu lmonary embolism without acute cor pulmonale (3) Congestive heart failure Current Visit: Yes Status: Acute Assessment and plan: Acute heart failure likely secondary to Afib RVR Patient has heart rate of 150, she says edema, SOB and Orthopnea began 2 days ago along with Rapid heart rate CTA shows pleural effusions, L>R. Physical exam significant for bibasilar crackles Likely in response to newly diagnosed PE Rate control with Cardizem and Metoprolol Lasix 20mg IVP daily Will get Echo in AM Trend troponins EKG in AM Likely cardiology consult Qualifiers: Heart failure type: high output Qualified Code(s): I50.83 - High output heart failure (4) Atelectasis of both lungs Current Visit: Yes Status: Acute Assessment and plan: As evidenced on CTA, do not suspect pneumonia based on clinical picture Will give incentive spirometer (5) Hypertension Current Visit: Yes Status: Acute Assessment and plan: Will be on cardizem drip and lopressor Resume home lisinopril if BP tolerates Qualifiers: Hypertension type: essential hypertension Qualified Code(s): I10 - Essential (primary) hypertension (6) Diabetes Current Visit: Yes Status: Acute Assessment and plan: Initiate sliding scale insulin with Q6h accucheck likely start basal insulin Qualifiers: Diabetes mellitus type: type 2 Diabetes mellitus exterminator helper termite insulin use: without exterminator helper termite use Diabetes mellitus complication status: without complication Qualified Code(s): E11.9 - Type 2 diabetes mellitus without complications (7) UTI (urinary tract infection) Current Visit: Yes Status: Chronic Assessment and plan: Chronic UTI, history of E. coli Previously treated with exterminator helper termite antibiotics by Dr. Hidalgo Will start on Rocephin pending cultures Qualifiers: Urinary tract infection type: acute cystitis Hematuria presence: without hematuria Qualified Code(s): N30.00 - Acute cystitis without hematuria (8) Diarrhea Current Visit: Yes Status: Acute Assessment and plan: Secondary to medication Qualifiers: Diarrhea type: unspecified type Qualified Code(s): R19.7 - Diarrhea, unspecified - Time Spent With Patient Total time spent is greater than 50% in coordination of care (as documented) at patient's floor/unit and/or counseling patient: <Shanon Cervantes Nicola - Last Filed: 04/27/19 08:09> Date of Encounter: 04/26/19 Internal Medicine - H&P: HPI History of present illness: Ms. Coronado is a 78 year old female Past Med Surg Social Fam HX - Family History Mother History Unknown: Yes All Systems PM: A 10-system review of systems was performed and is negative for pertinent findings except as documented above in the HPI. - Constitutional Vitals: Temp Pulse Resp BP Pulse Ox 97.8 F 99 18 129/65 90 04/27/19 07:39 04/27/19 07:39 04/27/19 07:39 04/27/19 07:39 04/27/19 07:39 Internal Med - H&P Results - Labs CBC & Chem 7: 04/27/19 03:13 04/27/19 03:13 Labs: Short CBC 04/26/19 04/27/19 Range/Units 15:36 03:13 WBC 11.9 H 10.7 (4.3-11.1) K/mcL Hgb 13.0 11.8 (11.5-15.4) g/dL Hct 41.6 39.0 (35.3-44.9) % Plt Count 292 290 (140-400) K/mcL Neutrophils # 9.4 H 8.7 (1.6-8.9) K/mcL BMP 04/26/19 04/27/19 15:36 03:13 Sodium 142 143 Potassium 3.1 L 3.3 L Chloride 102 104 Carbon Dioxide 26 29 BUN 10 7 L Creatinine 0.72 0.75 Glucose 123 H 162 H Calcium 9.0 8.4 L Cardiac Enzymes 04/26/19 04/26/19 04/27/19 Range/Units 15:36 21:51 03:13 Troponin I < 0.03 0.04 H* 0.03 (< 0.04) ng/mL Urine 04/26/19 Range/Units 20:54 Urine Color Yellow (Yellow) Urine Clarity Cloudy A (Clear) Urine pH 5.0 (5.0-8.0) pH Units Ur Specific [place] 1.029 H (1.010-1.025) Urine Protein Negative (Neg-Trace) mg/dL Urine Glucose (UA) Normal (Normal) mg/dL - Impressions ITS Impressions Chest X-Ray 04/26/19 15:26 IMPRESSION: Findings of pulmonary edema with small-moderate bilateral pleural effusions and bibasilar atelectasis. D/ / Zackary Hodges MD / Zackary Hodges MD Interpreting Provider: Zackary Hodges MD Chest CTA 04/26/19 17:09 IMPRESSION: Moderate right pleural effusion and small left pleural effusion. Diffuse ground-glass opacity, likely reflecting edema. Intermittent occlusion of bibasilar bronchi, suggestive of mucous plugging/airways disease. Consolidation within bilateral lower lobes, lingula, right middle lobe, likely atelectasis in the absence of clinical signs or symptoms of pneumonia. Findings are suggestive of small nonocclusive emboli within the right upper and left lower lobes. 9 mm indeterminate left upper lobe pulmonary nodule. 2 cm low-density right lower lobe nodule which may be cystic, a chronic, or reflect pseudotumor. Chest CT follow-up after treatment and resolution of acute symptoms is recommended. 2 cm right adrenal gland nodule, indeterminate by CT criteria. In the nonacute setting, adrenal protocol CT could be considered for further assessment. Moderate hiatal hernia. Findings were discussed with Alirio Padilla at 19:05 on 04/26/2019. D/ / Triston Levine MD / Triston Levine MD Interpreting Provider: Triston Levine MD - Time Spent With Patient Total time spent is greater than 50% in coordination of care (as documented) at patient's floor/unit and/or counseling patient: - Attending Attestation I performed a history and physical examination of the patient and discussed his management with the resident. I reviewed the residents note and agree with the documented findings and plan of care.
[2019-04-26] MEDS: *HR* Metoprolol 5 MG/5 ML VIAL IVP PRN ×2 (22:30→23:00)
[2019-04-26 22:34] LABS: Troponin I 0.04 ng/mL (< 0.04)
[2019-04-26] MEDS ORDERED: cefTRIAXone 1,000 MG in Water for inj. (sterile) 10 ML IVP ONE (23:03)
[2019-04-27] MEDS: Insulin LISPRO 300 UNITS/3 ML VIAL SQ SCH ×5 (00:28→23:35)
[2019-04-27 02:09] LABS: Magnesium 1.5 mg/dL (1.6-2.6)
[2019-04-27] MEDS: *HR* Metoprolol 5 MG/5 ML VIAL IVP PRN ×2 (03:35→16:03)
[2019-04-27 03:49] LABS: Basophils % 0.3 %; Eosinophils # 0.1 K/mcL (0.0-0.6); Eosinophils % 0.6 %; Hemoglobin 11.8 g/dL (11.5-15.4); Immature Granulocytes % 0.6 % (0-4); Lymphocytes % 8.9 %; Mean Corpuscular HGB Conc 30.3 g/dL (31.6-35.5); Mean Corpuscular Hemoglobin 28.9 pg (28.0-33.3); Mean Corpuscular Volume 95.6 fL (83.0-100.0); Monocytes # 0.9 K/mcL (0.0-1.3); Monocytes % 8.2 %; Neutrophils # 8.7 K/mcL (1.6-8.9); Platelet Count 290 K/mcL (140-400); Red Blood Count 4.08 M/mcL (3.82-4.97); Red Cell Distribution Width 15.9 % (11.5-14.5); Segmented Neutrophils % 81.4 %; White Blood Count 10.7 K/mcL (4.3-11.1)
[2019-04-27 03:55] LABS: BUN/Creatinine Ratio 9 (6-26); Blood Urea Nitrogen 7 mg/dL (8-23); Calcium 8.4 mg/dL (8.6-10.3); Carbon Dioxide 29 mEq/L (23-29); Chloride 104 mEq/L (98-107); Chol/HDL Ratio 3.8 (0-4.9); Cholesterol 147 mg/dL (< 200); Glucose 162 mg/dL (70-105); HDL Cholesterol 39 mg/dL (40-59); LDL Cholesterol,Calculated 84 mg/dL (0-99); Magnesium 1.4 mg/dL (1.6-2.6); Osmolality,Calculated 298 (280-300); Potassium 3.3 mEq/L (3.5-5.1); Sodium 143 mEq/L (136-145); Triglycerides 120 mg/dL (< 150); eGFR For African Americans > 60 (> 60); eGFR For Non-African Americans > 60 (> 60)
[2019-04-27] MEDS: Potassium Chloride 40 MEQ, Lidocaine 1% 2 ML in D5% in Water 500 ML IVPB ONE ×2 (05:18→06:06)
[2019-04-27] MEDS ORDERED: Magnesium Sulfate 4 GM in 0.9 % Sodium Chloride 100 ML IVPB ONE (05:35)
[2019-04-27] MEDS: *HR* Enoxaparin 120 MG/0.8 ML SYRINGE SQ SCH ×2 (06:07→17:50)
[2019-04-27] MEDS ORDERED: Metoprolol XL (24 HR) Succ 25 MG TAB.ER.24H PO SCH (09:00)
[2019-04-27] MEDS: cefTRIAXone 1,000 MG in Water for inj. (sterile) 10 ML IVP SCH (11:32)
--- NOTE | 2019-04-27 12:22 | Internal Med Progress Note ---
Hospitalist Progress Note - Encounter Date of Encounter: 04/27/19 Time of Encounter: 09:30 - Subjective Interval History: H&P reviewed. Patient with history of diabetes and hypertension was admitted overnight due to A. fib with RVR and decompensated heart failure. Required multiple doses of IV diltiazem push followed by continuous gtt. Pt was also give n bb x 4. SHe is currently on 17.5mg/hr on cardizem gtt with HR in 90-100s. Denies any chest pain and states that her breathing had improved from yesterday. - Exam Vitals: Temp Pulse Resp BP Pulse Ox 97.9 F 146 18 128/61 92 04/27/19 12:09 04/27/19 12:09 04/27/19 12:09 04/27/19 12:04/27/19 12:09 Exam: Gen: Vitals noted. No acute distress. Cardiac: irregular, borderline tachycardic, no murmur, +S1/S2 Pulmonary: bibasilar crackles. No wheezes or rhonchi Abdomen: soft, non-tender Extremities: 1-2+ BLE edema (non-pitting), nontender calf, no cyanosis or clubbing. Neuro: moves all extremities, no focal deficits. - Assessment and Plan (1) Atrial fibrillation with rapid ventricular response Current Visit: Yes Status: Acute Assessment and Plan: Requiring high dose of Cardizem drip with HR in 90-100 start Toprol XL, can also use PRN lopressor for HR > 110 will try to titrate off diltiazem gtt, use PO 60mg QID if needed trop 0.03 - 0.04 - 0.03, likely demand ischemia in the setting of RVR rather than type I event replete electrolytes, TSH 03/2019 WNL echocardiogram pending on lovenox for AC, will [place]wood check DOAC (2) Congestive heart failure Current Visit: Yes Status: Acute Assessment and Plan: likely due to afib with RVR has rales on exam and CTA shows pleural effusions L>R as well as diffuse GGO which represents pulmonary edema symptomatically improved after IV lasix, continue echocardiogram pending (3) Pulmonary embolism Current Visit: Yes Status: Acute Assessment and Plan: Incidental finding of small, nonocclusive emboli within the right upper and left lower lobe AC as above for afib (4) Diabetes Current Visit: Yes Status: Chronic Assessment and Plan: Hold off on metformin, low-dose sliding scale (5) Hypertension Current Visit: Yes Status: Chronic Assessment and Plan: bb and diltiazem as above will monitor off lisinopril (6) UTI (urinary tract infection) Current Visit: Yes Status: Chronic Assessment and Plan: reports history of chronic UTI on long-term abx by Urology currently on [place], continue DVT Prophylaxis: lovenox - Time Spent with Patient Total time spent is greater than 50% in coordination of care (as documented) at patient's floor/unit and/or counseling patient: Greater than 35 minutes Plan of Care Discussed with: patient (discussed with pt's in great detail) Internal Medicine: Result - Labs CBC & Chem 7: 04/27/19 03:13 04/27/19 03:13 Labs: Short CBC 04/26/19 04/27/19 Range/Units 15:36 03:13 WBC 11.9 H 10.7 (4.3-11.1) K/mcL Hgb 13.0 11.8 (11.5-15.4) g/dL Hct 41.6 39.0 (35.3-44.9) % Plt Count 292 290 (140-400) K/mcL Neutrophils # 9.4 H 8.7 (1.6-8.9) K/mcL BMP 04/26/19 04/27/19 15:36 03:13 Sodium 142 143 Potassium 3.1 L 3.3 L Chloride 102 104 Carbon Dioxide 26 29 BUN 10 7 L Creatinine 0.72 0.75 Glucose 123 H 162 H Calcium 9.0 8.4 L Cardiac Enzymes 04/26/19 04/26/19 04/27/19 Range/Units 15:36 21:51 03:13 Troponin I < 0.03 0.04 H* 0.03 (< 0.04) ng/mL Urine 04/26/19 Range/Units 20:54 Urine Color Yellow (Yellow) Urine Clarity Cloudy A (Clear) Urine pH 5.0 (5.0-8.0) pH Units Ur Specific [place] 1.029 H (1.010-1.025) Urine Protein Negative (Neg-Trace) mg/dL Urine Glucose (UA) Normal (Normal) mg/dL - ABG Interpretation ABG results: PT/INR, D-dimer D-Dimer 802 ng/mLFEU (0-500) H 04/26/19 15:36 - Impressions Impressions Chest X-Ray 04/26/19 15:26 IMPRESSION: Findings of pulmonary edema with small-moderate bilateral pleural effusions and bibasilar atelectasis. D/ / Zackary Hodges MD / Zackary Hodges MD Interpreting Provider: Zackary Hodges MD Chest CTA 04/26/19 17:09 IMPRESSION: Moderate right pleural effusion and small left pleural effusion. Diffuse ground-glass opacity, likely reflecting edema. Intermittent occlusion of bibasilar bronchi, suggestive of mucous plugging/airways disease. Consolidation within bilateral lower lobes, lingula, right middle lobe, likely atelectasis in the absence of clinical signs or symptoms of pneumonia. Findings are suggestive of small nonocclusive emboli within the right upper and left lower lobes. 9 mm indeterminate left upper lobe pulmonary nodule. 2 cm low-density right lower lobe nodule which may be cystic, a chronic, or reflect pseudotumor. Chest CT follow-up after treatment and resolution of acute symptoms is recommended. 2 cm right adrenal gland nodule, indeterminate by CT criteria. In the nonacute setting, adrenal protocol CT could be considered for further assessment. Moderate hiatal hernia. Findings were discussed with Alirio Padilla at 19:05 on 04/26/2019. D/ / Triston Levine MD / Triston Levine MD Interpreting Provider: Triston Levine MD Consult Discharge Plan - Plan Referrals: Guy Nagel MD [Primary Care Provider] - 05/05/19 9:15 am (2) Congestive heart failure Qualifiers: Heart failure type: unspecified Qualified Code(s): I50.9 - Heart failure, unspecified (3) Pulmonary embolism Qualifiers: Pulmonary embolism type: other Chronicity: acute Acute cor pulmonale presence: without acute cor pulmonale Qualified Code(s): I26.99 - Other pulmonary embolism without acute cor pulmonale (4) Diabetes Qualifiers: Diabetes mellitus type: type 2 Diabetes mellitus buttermaker continuous churn insulin use: without care home use Diabetes mellitus complication status: without complication Qualified Code(s): E11.9 - Type 2 diabetes mellitus without complications (5) Hypertension Qualifiers: Hypertension type: essential hypertension Qualified Code(s): I10 - Essential (primary) hypertension (6) UTI (urinary tract infection) Qualifiers: Urinary tract infection type: acute cystitis Hematuria presence: without hematuria Qualified Code(s): N30.00 - Acute cystitis without hematuria
[2019-04-27] MEDS: dilTIAZem HCl 60 MG TABLET PO SCH ×3 (13:32→20:14)
[2019-04-27] MEDS: Furosemide 20 MG/2 ML VIAL IVP SCH (13:32)
--- NOTE | 2019-04-27 14:30 | Electrocardiograph Report ---
[place] [id number] Test Date: 2019-04-26 Pat Name: Dalia Coronado Department: EXAM1 Room: 2N04 Gender: F Meal Room Hand: : 1940 Requested By: Alirio Wilkinson Order Number: [id number] Reading MD: Zeus Pablo Measurements Intervals [place] Rate: 150 P: 225 [place]: 131 QRS: -31 QRSD: 78 T: 47 QT: 296 QTc: 468 Interpretive Statements Supraventricular tachycardia Possible inferior infarct, age undetermined Electronically Signed On 04-27-2019 14:28:53 EDT by eZus Pablo
--- NOTE | 2019-04-27 14:43 | Electrocardiograph Report ---
[address] [address] Test Date: 2019-04-27 Pat Name: Dalia Coronado Department: 110 Room: 2N04 Gender: F Job Training Specialist: : 1940 Requested By: Helio Charles Order Number: [id number] Reading MD: Zeus Pablo Measurements Intervals [place] Rate: 113 P: [place]: 0 QRS: -9 QRSD: 85 T: -15 QT: 353 QTc: 420 Interpretive Statements ATRIAL FIBRILLATION WITH RAPID VENTRICULAR RESPONSE NONSPECIFIC ST & T-WAVE ABNORMALITY ABNORMAL RHYTHM ECG Electronically Signed On 04-27-2019 14:41:27 EDT by Zeus Pablo
[2019-04-27] MEDS ORDERED: Ipratropium/Albuterol Neb 3 ML IH PRN (21:00)
[2019-04-28 02:10] LABS: Hematocrit 37.1 % (35.3-44.9); Hemoglobin 11.1 g/dL (11.5-15.4); Mean Corpuscular HGB Conc 29.9 g/dL (31.6-35.5); Mean Corpuscular Hemoglobin 29.2 pg (28.0-33.3); Mean Corpuscular Volume 97.6 fL (83.0-100.0); Mean Platelet Volume 10.3 fL (9.4-12.4); Platelet Count 300 K/mcL (140-400); White Blood Count 10.2 K/mcL (4.3-11.1)
[2019-04-28 02:29] LABS: BUN/Creatinine Ratio 10 (6-26); Blood Urea Nitrogen 8 mg/dL (8-23); Carbon Dioxide 28 mEq/L (23-29); Chloride 103 mEq/L (98-107); Glucose 156 mg/dL (70-105); Osmolality,Calculated 294 (280-300); Potassium 3.4 mEq/L (3.5-5.1); Sodium 141 mEq/L (136-145); eGFR For African Americans > 60 (> 60); eGFR For Non-African Americans > 60 (> 60)
[2019-04-28] MEDS: *HR* Enoxaparin 120 MG/0.8 ML SYRINGE SQ SCH ×2 (05:06→17:05)
[2019-04-28] MEDS: *HR* Metoprolol 5 MG/5 ML VIAL IVP PRN (05:56)
[2019-04-28] MEDS ORDERED: Potassium Chloride Elixir 20 MEQ/15 ML UDC PO SCH (08:30)
[2019-04-28] MEDS: Insulin LISPRO 300 UNITS/3 ML VIAL SQ SCH ×4 (08:30→20:09)
[2019-04-28] MEDS: Metoprolol XL (24 HR) Succ 25 MG TAB.ER.24H PO SCH (08:38)
[2019-04-28] MEDS: dilTIAZem HCl 60 MG TABLET PO SCH ×4 (08:38→20:08)
[2019-04-28] MEDS: Furosemide 20 MG/2 ML VIAL IVP SCH (08:39)
[2019-04-28] MEDS: cefTRIAXone 1,000 MG in Water for inj. (sterile) 10 ML IVP SCH (08:39)
[2019-04-28] MEDS ORDERED: Furosemide 20 MG/2 ML VIAL IVP ONE ×2 (11:39→12:06)
--- NOTE | 2019-04-28 11:43 | Internal Med Progress Note ---
Hospitalist Progress Note - Encounter Date of Encounter: 04/28/19 Time of Encounter: 08:30 - Subjective Interval History: Patient still feels congested but denies any palpitation, chest pain, lightheadedness, or nausea/vomiting. LE swelling is decreasing. - Exam Vitals: Temp Pulse Resp BP Pulse Ox 98.1 F 92 16 126/64 93 04/28/19 06:26 04/28/19 06:26 04/28/19 06:26 04/28/19 06:26 04/28/19 06:26 Exam: Gen: Vitals noted. No acute distress. Cardiac: irregular, borderline tachycardic, no murmur, +S1/S2 Pulmonary: bibasilar crackles. No wheezes or rhonchi Abdomen: soft, non-tender Extremities: 1-2+ BLE edema (non-pitting), nontender calf, no cyanosis or clubbi ng. Neuro: moves all extremities, no focal deficits. - Assessment and Plan (1) Atrial fibrillation with rapid ventricular response Current Visit: Yes Status: Acute Assessment and Plan: trop 0.03 - 0.04 - 0.03, likely demand ischemia in the setting of RVR rather than type I event continues to require Cardizem drip 10mg/hr despite the addition of PO bb/diltiazem. HR 100-110s will uptitrate both bb and diltiazem, try to titrate off diltiazem gtt continue to replete electrolytes, TSH 03/2019 WNL echocardiogram showed preserved EF and no significant valvulopathy on lovenox for AC, will [place] check DOAC today (2) Acute respiratory failure with hypoxia Current Visit: Yes Status: Acute Assessment and Plan: secondary to CHF and PE, see mx as below wean O2 as tolerated (3) Congestive heart failure Current Visit: Yes Status: Acute Assessment and Plan: likely due to afib with RVR has rales on exam and CTA showing pleural effusions L>R as well as diffuse GGO which represents pulmonary edema echo showed preserved EF, indeterminate diastolic dysfunction improving on IV lasix but continues to require oxygen via NC, will increase the dose to 40mg QD (4) Pulmonary embolism Current Visit: Yes Status: Acute Assessment and Plan: Incidental finding of small, nonocclusive emboli within the right upper and left lower lobe AC as above for afib (5) Diabetes Current Visit: Yes Status: Chronic Assessment and Plan: Hold off on metformin, low-dose sliding scale (6) Hypertension Current Visit: Yes Status: Chronic Assessment and Plan: bb and diltiazem as above will monitor off lisinopril (7) UTI (urinary tract infection) Current Visit: Yes Status: Chronic Assessment and Plan: reports history of chronic UTI on long-term abx by Urology currently on Pelon, continue DVT Prophylaxis: On lovenox - Time Spent with Patient Total time spent is greater than 50% in coordination of care (as documented) at patient's floor/unit and/or counseling patient: 25 - 35 minutes Plan of Care Discussed with: patient Internal Medicine: Result - Labs CBC & Chem 7: 04/28/19 01:17 04/28/19 01:17 Labs: Short CBC 04/28/19 Range/Units 01:17 WBC 10.2 (4.3-11.1) K/mcL Hgb 11.1 L (11.5-15.4) g/dL Hct 37.1 (35.3-44.9) % Plt Count 300 (140-400) K/mcL BMP 04/28/19 01:17 Sodium 141 Potassium 3.4 L Chloride 103 Carbon Dioxide 28 BUN 8 Creatinine 0.82 Glucose 156 H Calcium 8.0 L - ABG Interpretation ABG results: PT/INR, D-dimer D-Dimer 802 ng/mLFEU (0-500) H 04/26/19 15:36 - Impressions Impressions Echocardiogram 04/27/19 08:00 Impressions: LVEF 50-55%. Indeterminate diastolic function. Normal right ventricular structure and function Mild mitral regurgitation. Mild tricuspid regurgitation. No pulmonary hypertension. Left Ventricular Wall Motion: Rest Echo Findings All wall segments showed normal motion. Findings: Study Quality * Technically sub-optimal due to clinical status. ECG Findings * Atrial fibrillation. Left Ventricle * LVEF 50-55%. * Normal LV chamber size, wall thickness and systolic function. * Indeterminate diastolic function. Right Ventricle * Normal right ventricular structure and function. Left Atrium * Normal left atrial size. Right Atrium * Normal right atrial size. Interatrial Septum * Interatrial septum not well evaluated. Aortic Valve * Trileaflet aortic valve with normal function. * No aortic stenosis. * No aortic regurgitation. Mitral Valve * Mild mitral annular calcification * Mild mitral regurgitation. * No mitral stenosis. Tricuspid Valve * Normal tricuspid valve structure. * No tricuspid stenosis. * Mild tricuspid regurgitation. * Estimated RVSP is 31 mmHg. * Estimated RA pressure is 3 mmHg. * No pulmonary hypertension. Pulmonic Valve * Pulmonic valve is not well visualized. * No pulmonic stenosis. * Trace pulmonic regurgitation. Aorta * Normally sized aortic root. Pericardium * The pericardium appears normal. IVC * The IVC is not dilated. * > 50% respiratory change Consult Discharge Plan - Plan Referrals: Guy Nagel MD [Primary Care Provider] - 05/05/19 9:15 am Prescriptions: Apixaban [Eliquis] 5 mg PO BID #60 tablet (3) Congestive heart failure Qualifiers: Heart failure type: diastolic Heart failure chronicity: acute Qualified Code(s): I50.31 - Acute diastolic (congestive) heart failure (4) Pulmonary embolism Qualifiers: Pulmonary embolism type: other Chronicity: acute Acute cor pulmonale presence: without acute cor pulmonale Qualified Code(s): I26.99 - Other pul monary embolism without acute cor pulmonale (5) Diabetes Qualifiers: Diabetes mellitus type: type 2 Diabetes mellitus penitentiary insulin use: [facility] use Diabetes mellitus complication status: without complication Qualified Code(s): E11.9 - Type 2 diabetes mellitus without complications (6) Hypertension Qualifiers: Hypertension type: essential hypertension Qualified Code(s): I10 - Essential (primary) hypertension (7) UTI (urinary tract infection) Qualifiers: Urinary tract infection type: acute cystitis Hematuria presence: without hematuria Qualified Code(s): N30.00 - Acute cystitis without hematuria
--- NOTE | 2019-04-28 23:55 | Electrocardiograph Report ---
[place] [employer] Test Date: 2019-04-26 Pat Name: Dalia Coronado Department: EXAM1 Room: 2N04 Gender: F Bag Mender: : [id number] Requested By: Balbir Sewell Order Number: [id number] Reading MD: Nitza Butterfield Measurements Intervals [place] Rate: 128 P: [place]: QRS: -28 QRSD: 85 T: 66 QT: 308 QTc: 450 Interpretive Statements Atrial flutter Inferior infarct, old Electronically Signed On 04-28-2019 23:54:03 EDT by Nitza Butterfield
[2019-04-29 02:23] LABS: Hematocrit 35.6 % (35.3-44.9); Hemoglobin 10.7 g/dL (11.5-15.4); Mean Corpuscular HGB Conc 30.1 g/dL (31.6-35.5); Mean Corpuscular Hemoglobin 29.4 pg (28.0-33.3); Mean Corpuscular Volume 97.8 fL (83.0-100.0); Mean Platelet Volume 10.1 fL (9.4-12.4); Platelet Count 273 K/mcL (140-400); Red Blood Count 3.64 M/mcL (3.82-4.97); Red Cell Distribution Width 15.9 % (11.5-14.5); White Blood Count 9.3 K/mcL (4.3-11.1)
[2019-04-29 02:33] LABS: BUN/Creatinine Ratio 11 (6-26); Blood Urea Nitrogen 11 mg/dL (8-23); Calcium 8.2 mg/dL (8.6-10.3); Carbon Dioxide 29 mEq/L (23-29); Chloride 104 mEq/L (98-107); Glucose 156 mg/dL (70-105); Magnesium 1.8 mg/dL (1.6-2.6); Osmolality,Calculated 291 (280-300); Potassium 4.3 mEq/L (3.5-5.1); Sodium 139 mEq/L (136-145); eGFR For African Americans > 60 (> 60); eGFR For Non-African Americans 55 (> 60)
[2019-04-29] MEDS: *HR* Enoxaparin 120 MG/0.8 ML SYRINGE SQ SCH (05:53)
[2019-04-29] MEDS: Insulin LISPRO 300 UNITS/3 ML VIAL SQ SCH ×4 (08:18→20:49)
[2019-04-29] MEDS: Metoprolol XL (24 HR) Succ 25 MG TAB.ER.24H PO SCH (08:19)
[2019-04-29] MEDS: Diltiazem CD (24hr) 180 MG CAPSULE PO SCH (08:19)
[2019-04-29] MEDS: cefTRIAXone 1,000 MG in Water for inj. (sterile) 10 ML IVP SCH (08:20)
[2019-04-29] MEDS ORDERED: Furosemide 20 MG/2 ML VIAL IVP SCH (09:00)
[2019-04-29] MEDS: predniSONE 20 MG TABLET PO SCH (11:55)
--- NOTE | 2019-04-29 12:33 | Internal Med Progress Note ---
Hospitalist Progress Note - Encounter Date of Encounter: 04/29/19 Time of Encounter: 09:15 - Subjective Interval History: Continues to report improvement in his breathing. No chest pain/palpitation. LE swelling is less. No fever overnight - Exam Vitals: Temp Pulse Resp BP Pulse Ox 97.9 F 85 18 101/46 85 04/29/19 11:52 04/29/19 11:52 04/29/19 11:52 04/29/19 11:52 04/29/19 11:52 Exam: Gen: Vitals noted. No acute distress. Cardiac: irregular rhythm but normal rate. no murmur, +S1/S2 Pulmonary: minimal bibasilar crackles but more prominent wheezes today Abdomen: soft, non-tender Extremities: 1-2+ BLE edema (non-pitting), nontender calf, no cyanosis or clubb ing. Neuro: moves all extremities, no focal deficits. - Assessment and Plan (1) Acute respiratory failure with hypoxia Current Visit: Yes Status: Acute Assessment and Plan: secondary to CHF and PE, see mx as below also started to wheeze today ?underlying COPD exacerbation will add PO Prednisone 40mg for 5 days, continue bronchodilator wean O2 as tolerated (2) Atrial fibrillation with rapid ventricular response Current Visit: Yes Status: Resolved Assessment and Plan: trop 0.03 - 0.04 - 0.03, likely demand ischemia in the setting of RVR rather than type I event TSH 03/2019 WNL HR is controlled on Toprol XL 50mg and diltiazem 360mg QD, continue. Cardizem gtt weaned off echocardiogram showed preserved EF and no significant valvulopathy switch to Eliquis for AC (3) Congestive heart failure Current Visit: Yes Status: Acute Assessment and Plan: likely due to afib with RVR has rales on exam and CTA showing pleural effusions L>R as well as diffuse GGO which represents pulmonary edema echo showed preserved EF, indeterminate diastolic dysfunction continue lasix (4) Pulmonary embolism Current Visit: Yes Status: Acute Assessment and Plan: Incidental finding of small, nonocclusive emboli within the right upper and left lower lobe AC as above for afib (5) Diabetes Current Visit: Yes Status: Chronic Assessment and Plan: Hold off on metformin, low-dose sliding scale (6) Hypertension Current Visit: Yes Status: Chronic Assessment and Plan: bb and diltiazem as above will monitor off lisinopril (7) UTI (urinary tract infection) Current Visit: Yes Status: Chronic Assessment and Plan: reports history of chronic UTI on long-term abx by Urology currently on Pelon, continue DVT Prophylaxis: on Eliquis - Time Spent with Patient Total time spent is greater than 50% in coordination of care (as documented) at patient's floor/unit and/or counseling patient: 25 - 35 minutes Plan of Care Discussed with: patient Internal Medicine: Result - Labs CBC & Chem 7: 04/29/19 01:57 04/29/19 01:57 Labs: Short CBC 04/29/19 Range/Units 01:57 WBC 9.3 (4.3-11.1) K/mcL Hgb 10.7 L (11.5-15.4) g/dL Hct 35.6 (35.3-44.9) % Plt Count 273 (140-400) K/mcL BMP 04/29/19 01:57 Sodium 139 Potassium 4.3 Chloride 104 Carbon Dioxide 29 BUN 11 Creatinine 0.98 Glucose 156 H Calcium 8.2 L - ABG Interpretation ABG results: PT/INR, D-dimer D-Dimer 802 ng/mLFEU (0-500) H 04/26/19 15:36 Consult Discharge Plan - Plan Referrals: Guy Nagel MD [Primary Care Provider] - 05/05/19 9:15 am Prescriptions: Diltiazem CD (24hr) [Cardizem CD] 360 mg PO DAILY #60 cap.er.24h Apixaban [Eliquis] 5 mg PO BID #60 tablet Furosemide [Lasix] 40 mg PO DAILY #30 tablet predniSONE [PredniSONE] 40 mg PO DAILY 4 Days #8 tablet Metoprolol XL (24 HR) Succ [Toprol Xl] 50 mg PO DAILY #60 tab.er.24h (3) Congestive heart failure Qualifiers: Heart failure type: diastolic Heart failure chronicity: acute Qualified Code(s): I50.31 - Acute diastolic (congestive) heart failure (4) Pulmonary embolism Qualifiers: Pulmonary embolism type: other Chronicity: acute Acute cor pulmonale presence: without acute cor pulmonale Qualified Code(s): I26.99 - Other pulmonary embolism without acute cor pulmonale (5) Diabetes Qualifiers: Diabetes mellitus type: type 2 Diabetes mellitus prison insulin use: without prison use Diabetes mellitus complication status: without complication Qualified Code(s): E11.9 - Type 2 diabetes mellitus without complications (6) Hypertension Qualifiers: Hypertension type: essential hypertension Qualified Code(s): I10 - Essential (primary) hypertension (7) UTI (urinary tract infection) Qualifiers: Urinary tract infection type: acute cystitis Hematuria presence: without hem aturia Qualified Code(s): N30.00 - Acute cystitis without hematuria
[2019-04-29] MEDS: Ipratropium/Albuterol Neb 3 ML IH SCH ×2 (15:41→20:26)
[2019-04-29] MEDS: Apixaban 5 MG TABLET PO SCH (16:41)
[2019-04-30] MEDS: Ipratropium/Albuterol Neb 3 ML IH SCH ×6 (00:22→20:12)
[2019-04-30 05:47] LABS: Hematocrit 35.6 % (35.3-44.9); Hemoglobin 10.8 g/dL (11.5-15.4); Mean Corpuscular HGB Conc 30.3 g/dL (31.6-35.5); Mean Corpuscular Hemoglobin 28.6 pg (28.0-33.3); Mean Corpuscular Volume 94.4 fL (83.0-100.0); Mean Platelet Volume 10.5 fL (9.4-12.4); Platelet Count 274 K/mcL (140-400); Red Blood Count 3.77 M/mcL (3.82-4.97); Red Cell Distribution Width 15.7 % (11.5-14.5); White Blood Count 10.4 K/mcL (4.3-11.1)
[2019-04-30 05:59] LABS: BUN/Creatinine Ratio 18 (6-26); Blood Urea Nitrogen 15 mg/dL (8-23); Calcium 8.5 mg/dL (8.6-10.3); Carbon Dioxide 30 mEq/L (23-29); Chloride 103 mEq/L (98-107); Glucose 174 mg/dL (70-105); Magnesium 1.8 mg/dL (1.6-2.6); Osmolality,Calculated 295 (280-300); Potassium 4.1 mEq/L (3.5-5.1); Sodium 140 mEq/L (136-145); eGFR For African Americans > 60 (> 60); eGFR For Non-African Americans > 60 (> 60)
[2019-04-30] MEDS: Apixaban 5 MG TABLET PO SCH ×2 (06:33→17:45)
[2019-04-30] MEDS ORDERED: Metoprolol XL (24 HR) Succ 50 MG TAB.ER.24H PO SCH (09:00)
[2019-04-30] MEDS: Insulin LISPRO 300 UNITS/3 ML VIAL SQ SCH ×4 (09:22→20:40)
[2019-04-30] MEDS: predniSONE 20 MG TABLET PO SCH (09:24)
[2019-04-30] MEDS: Diltiazem CD (24hr) 180 MG CAPSULE PO SCH (09:24)
[2019-04-30] MEDS: cefTRIAXone 1,000 MG in Water for inj. (sterile) 10 ML IVP SCH (09:25)
--- NOTE | 2019-04-30 11:42 | Internal Med Progress Note ---
Hospitalist Progress Note - Encounter Date of Encounter: 04/30/19 Time of Encounter: 09:15 - Subjective Interval History: HR continues to remain the range of 90s to low 100s overnight with episodes of 110-120s. Otherwise, she denies any chest pain, palpitation, or worsening leg swelling. - Exam Vitals: Temp Pulse Resp BP Pulse Ox 98.0 F 114 18 145/77 98 04/30/19 11:03 04/30/19 11:03 04/30/19 11:03 04/30/19 11:03 04/30/19 11:03 Exam: Gen: Vitals noted. No acute distress. Cardiac: irregular rhythm and borderline tachycardia. no murmur, +S1/S2 Pulmonary: Mild bibasilar crackles, less wheezing Abdomen: soft, non-tender Extremities: 1-2+ BLE edema (non-pitting), nontender calf, no cyanosis or clubbing. Neuro: moves all extremities, no focal deficits. - Assessment and Plan (1) Acute respiratory failure with hypoxia Current Visit: Yes Status: Acute Assessment and Plan: secondary to CHF and PE +/- possible COPD exacerbation, see mx as below PO Prednisone 40mg added on 04/29 with less wheezing noted on exam today, continue bronchodilator wean O2 as tolerated (2) Atrial fibrillation with rapid ventricular response Current Visit: Yes Status: Resolved Assessment and Plan: trop 0.03 - 0.04 - 0.03, likely demand ischemia in the setting of RVR rather than type I event TSH 03/2019 WNL will increase Toprol XL to 100mg. COntinune diltiazem 360mg QD echocardiogram showed preserved EF and no significant valvulopathy Eliquis for AC (3) Congestive heart failure Current Visit: Yes Status: Acute Assessment and Plan: likely due to afib with RVR has rales on exam and CTA showing pleural effusions L>R as well as diffuse GGO which represents pulmonary edema echo showed preserved EF, indeterminate diastolic dysfunction continue lasix (4) Pulmonary embolism Current Visit: Yes Status: Acute Assessment and Plan: Incidental finding of small, nonocclusive emboli within the right upper and left lower lobe AC as above for afib (5) Diabetes Current Visit: Yes Status: Chronic Assessment and Plan: Hold off on metformin, low-dose sliding scale (6) Hypertension Current Visit: Yes Status: Chronic Assessment and Plan: bb and diltiazem as above will monitor off lisinopril (7) UTI (urinary tract infection) Current Visit: Yes Status: Chronic Assessment and Plan: reports history of chronic UTI on long-term abx by Urology currently on Pelon, continue - Time Spent with Patient Total time spent is greater than 50% in coordination of care (as documented) at patient's floor/unit and/or counseling patient: 25 - 35 minutes Plan of Care Discussed with: patient (Discussed with patient's ) Internal Medicine: Result - Labs CBC & Chem 7: 04/30/19 04:59 04/30/19 04:59 Labs: Short CBC 04/30/19 Range/Units 04:59 WBC 10.4 (4.3-11.1) K/mcL Hgb 10.8 L (11.5-15.4) g/dL Hct 35.6 (35.3-44.9) % Plt Count 274 (140-400) K/mcL BMP 04/30/19 04:59 Sodium 140 Potassium 4.1 Chloride 103 Carbon Dioxide 30 H BUN 15 Creatinine 0.84 Glucose 174 H Calcium 8.5 L - ABG Interpretation ABG results: PT/INR, D-dimer D-Dimer 802 ng/mLFEU (0-500) H 04/26/19 15:36 Consult Discharge Plan - Plan Referrals: Guy Nagel MD [Primary Care Provider] - 05/05/19 9:15 am Prescriptions: Diltiazem CD (24hr) [Cardizem CD] 360 mg PO DAILY #60 cap.er.24h Apixaban [Eliquis] 5 mg PO BID #60 tablet Furosemide [Lasix] 40 mg PO DAILY #30 tablet predniSONE [PredniSONE] 40 mg PO DAILY 4 Days #8 tablet Metoprolol XL (24 HR) Succ [Toprol Xl] 50 mg PO DAILY #60 tab.er.24h (3) Congestive heart failure Qualifiers: Heart failure type: diastolic Heart failure chronicity: acute Qualified Code(s): I50.31 - Acute diastolic (congestive) heart failure (4) Pulmonary embolism Qualifiers: Pulmonary embolism type: other Chronicity: acute Acute cor pulmonale presence: without acute cor pulmonale Qualified Code(s): I26.99 - Other pulmonary embolism without acute cor pulmonale (5) Diabetes Qualifiers: Diabetes mellitus type: type 2 Diabetes mellitus ferry terminal agent insulin use: without ferry terminal agent use Diabetes mellitus complication status: without complication Qualified Code(s): E11.9 - Type 2 diabetes mellitus without complications (6) Hypertension Qualifiers: Hypertension type: essential hypertension Qualified Code(s): I10 - Essential (primary) hypertension (7) UTI (urinary tract infection) Qualifiers: Urinary tract infection type: acute cystitis Hematuria presence: without hematuria Qualified Code(s): N30.00 - Acute cystitis without hematuria
[2019-04-30] MEDS: Furosemide 40 MG TABLET PO SCH (13:36)
[2019-05-01] MEDS: Ipratropium/Albuterol Neb 3 ML IH SCH ×4 (00:08→11:22)
[2019-05-01 02:54] LABS: BUN/Creatinine Ratio 22 (6-26); Blood Urea Nitrogen 17 mg/dL (8-23); Calcium 8.5 mg/dL (8.6-10.3); Carbon Dioxide 30 mEq/L (23-29); Chloride 100 mEq/L (98-107); Glucose 181 mg/dL (70-105); Magnesium 1.8 mg/dL (1.6-2.6); Osmolality,Calculated 294 (280-300); Potassium 4.2 mEq/L (3.5-5.1); Sodium 139 mEq/L (136-145); eGFR For African Americans > 60 (> 60); eGFR For Non-African Americans > 60 (> 60)
[2019-05-01] MEDS: Apixaban 5 MG TABLET PO SCH (05:25)
[2019-05-01] MEDS: Insulin LISPRO 300 UNITS/3 ML VIAL SQ SCH ×2 (08:09→11:59)
[2019-05-01] MEDS: predniSONE 20 MG TABLET PO SCH (08:12)
[2019-05-01] MEDS: Diltiazem CD (24hr) 180 MG CAPSULE PO SCH (08:12)
[2019-05-01] MEDS: Furosemide 40 MG TABLET PO SCH (08:12)
[2019-05-01] MEDS ORDERED: cephALEXin 500 MG CAPSULE PO SCH (09:00)
[2019-05-01] MEDS ORDERED: Metoprolol XL (24 HR) Succ 50 MG TAB.ER.24H PO SCH (09:00)
--- NOTE | 2019-05-01 10:34 | Discharge Summary ---
- NOTES TO OUTPATIENT PROVIDER Notes to Outpatient Provider: Follow up with cardiology and PCP as outpatient Orders not resulted at time of discharge: Pending orders 04/27/19 01:19 EKG [ECG 12 lead ECG] [ECG] Stat 04/28/19 06:00 ECG 12 lead ECG [ECG] AM 0600 Date of Encounter: 05/01/19 Time of Encounter: 08:00 - Discharge Diagnosis (1) Acute respiratory failure with hypoxia Priority: Primary Status: Acute (2) Atrial fibrillation with rapid ventricular response Priority: Secondary Status: Resolved (3) Congestive heart failure Priority: Secondary Status: Acute Qualifiers: Heart failure type: diastolic Heart failure chronicity: acute Qualified Code(s): I50.31 - Acute diastolic (congestive) heart failure (4) Pulmonary embolism Priority: Secondary Status: Acute Qualifiers: Pulmonary embolism type: other Chronicity: acute Acute cor pulmonale presence: without acute cor pulmonale Qualified Code(s): I26.99 - Other pulmonary embolism without acute cor pulmonale (5) Diabetes Priority: Secondary Status: Chronic Qualifiers: Diabetes mellitus type: type 2 Diabetes mellitus solar system designer insulin use: without senior care use Diabetes mellitus complication status: without complication Qualified Code(s): E11.9 - Type 2 diabetes mellitus without complications (6) Hypertension Priority: Secondary Status: Chronic Qualifiers: Hypertension type: essential hypertension Qualified Code(s): I10 - Essential (primary) hypertension (7) UTI (urinary tract infection) Priority: Secondary Status: Chronic Qualifiers: Urinary tract infection type: acute cystitis Hematuria presence: without hematuria Qualified Code(s): N30.00 - Acute cystitis without hematuria Hospital course: Ms. Coronado is a 78 year old female with history of diabetes, ex-tobacco use, hypertension, and morbid obesity who was admitted to acute hypoxic respiratory failure and atrial fibrillation with RVR. New onset. Respiratory failure was due to decompensated heart failure as well as bilateral PE and ?COPD exacerbation (no formal diagnosis of COPD yet). Required high amount of IV diltiazem gtt initially but was eventually transitioned to PO Toprol XL 150mg and Cardizem 360mg QD. Anticoagulated with Eliquis. Her diuretic was also transitioned to PO 40mg QD which she tolerated well. Unfortunately, patient was not able to be weaned to room air and she will be discharged on 2 L of oxygen and with tapering course of steroids as well as duoneb. OF note, she was diagnosed with chronic UTI for which she follows with Urology. Urine culture grew E.coli sensitive to cephalosporin and she will be discharged with Keflex until she sees Urology as outpatient. Discharge discussed with: patient, family, nurse, social work, case management - Time Spent with Patient Total time spent providing and/or coordinating discharge services: 35 mins - Discharge Medications Prescriptions: New Apixaban [Eliquis] 5 mg PO BID #60 tablet Diltiazem CD (24hr) [Cardizem CD] 360 mg PO DAILY #60 cap.er.24h Furosemide [Lasix] 40 mg PO DAILY #30 tablet predniSONE [PredniSONE] 40 mg PO DAILY 4 Days #8 tablet cephALEXin [Keflex] 500 mg PO BID 5 Days #10 capsule Metoprolol XL (24 HR) Succ [Toprol Xl] 150 mg PO DAILY #90 tab.er.24h Continued metFORMIN [Glucophage] 1,000 mg PO BIDWM Discontinued Lisinopril [Zestril] 5 mg PO BID Atenolol [Tenormin] 50 mg PO HS Home Medications: metFORMIN [Glucophage] 1,000 mg PO BIDWM 04/26/19 [History] Apixaban [Eliquis] 5 mg PO BID #60 tablet 04/28/19 [Rx] Diltiazem CD (24hr) [Cardizem CD] 360 mg PO DAILY #60 cap.er.24h 04/29/19 [Rx] Furosemide [Lasix] 40 mg PO DAILY #30 tablet 04/29/19 [Rx] predniSONE [PredniSONE] 40 mg PO DAILY 4 Days #8 tablet 04/29/19 [Rx] Metoprolol XL (24 HR) Succ [Toprol Xl] 150 mg PO DAILY #90 tab.er.24h 05/01/19 [Rx] cephALEXin [Keflex] 500 mg PO BID 5 Days #10 capsule 05/01/19 [Rx] Allergies/Adverse Reactions: Allergy/AdvReac Type Severity Reaction Status Date / Time No Known Allergies Allergy Verified 04/26/19 15:22 Date of admission: 04/27/19 10:09 Primary care physician: Guy Nagel MD Consults: 04/29/19 19:17 Consult to Physical Therapy [CONS] Routine Comment: Evaluate, develop and implement POC Reason for Consult: dishcarge planning Does patient have active BEDREST order?: No Is patient medically & hemodynamically stable?: Yes Patient assessed for mobility or mobilized this visit?: Yes 04/29/19 19:18 Consult to Occupational Therapy [CONS] Routine Comment: Evaluate, develop and implement POC Reason for Consult: discharge planning Does patient have active BEDREST order?: No Is patient medically & hemodynamically stable?: Yes Patient assessed for mobility or mobilized this visit?: Yes - Constitutional Vitals: Temp Pulse Resp BP Pulse Ox 98.1 F 126 18 141/81 93 05/01/19 07:50 05/01/19 07:50 05/01/19 07:50 05/01/19 07:50 05/01/19 07:50 Exam: Gen: Vitals noted. No acute distress. Cardiac: irregular rhythm but normal rate. no murmur, +S1/S2 Pulmonary: Minimal bibasilar crackles, no wheezing appreciated today Abdomen: soft, non-tender Extremities: 1-2+ BLE edema (non-pitting), nontender calf, no cyanosis or clubbing. Neuro: moves all extremities, no focal deficits. - Patient Status Disposition: Home, Self-Care Condition: Fair Functional capacity at discharge: uses cane/walker Overall status at discharge: patient is progressing back to baseline - Ambulatory Orders Ambulatory Orders: Basic Metabolic Panel [CHEM] Time Frame: 1 Week, Facility: [facility], Location: Lab - Discharge Instructions Instructions: Acute Respiratory Distress Syndrome (DC), Heart Failure (DC), Pulmonary Embolism (DC), Diabetes Mellitus Type 2 in Adults (DC), Chronic Hypertension (DC), Urinary Tract Infection in Women (DC), Atrial Fibrillation (DC) Follow Up With: Guy Nagel MD [Primary Care Provider] - 05/05/19 9:15 am Wade Hinson MD [Non-Partnered Physician] - Kingsley Bee MD [Partnered Physician] - Ehsan Hidalgo MD [Partnered Physician] - - Diet and Activity Activity: as per physical therapy Diet: low salt diet
[2019-05-01 11:38] VITALS: BP 136/65
== END 2019-05-01 16:11 | disposition home or self-care (01) | DRG 175 ==
LOC: EMEROOARM 15:18 → 2NNU 15:18 → SUATTDRO 21:26 → 2NNU 22:06
PROVIDERS: ADMIT Internal Medicine Nephrology; ATTEND Internal Medicine

== ENCOUNTER 2019-05-03 15:43 | Inpatient (IN) ==
--- NOTE | 2019-05-03 16:32 | Emergency Department Note ---
Disposition Clinical Impression: Atrial fibrillation with rapid ventricular response Disposition: Admitted As Inpatient Condition: Fair Time of Disposition: 20:00 General Adult HPI - General Chief complaint: ED Arrhythmia/Palpitations Stated complaint: afib RVR Time Seen by Provider: 05/03/19 16:05 Source: patient Limitations: no limitations Nursing Notes Reviewed: Yes Vital Signs Reviewed: Yes - History of Present Illness HPI Narrative: Patient has a history of atrial flutter and presents with a rapid heart rate which started yesterday at home and is constant and no medications specifically use. Minimal lightheadedness but no other symptoms. No chest pain or tightness or discomfort or pressure. No pain in the head, neck, chest, abdomen or back. No new respiratory symptoms. No new pain or swelling of the lower extremities but she does have chronic lower extremity swelling. Social history: Stopped smoking 20 years ago. Is here with her Pain Scale: 0 - Related Data Home Medications Medication Instructions Recorded Confirmed metFORMIN [Glucophage] 1,000 mg PO BIDWM 04/26/19 05/03/19 Previous Rx's Medication Instructions Recorded Apixaban [Eliquis] 5 mg PO BID #60 tablet 04/28/19 Diltiazem CD (24hr) [Cardizem CD] 360 mg PO DAILY #60 cap.er.24h 04/29/19 Furosemide [Lasix] 40 mg PO DAILY #30 tablet 04/29/19 predniSONE [PredniSONE] 40 mg PO DAILY 4 Days #8 tablet 04/29/19 Ipratropium/Albuterol Neb [Duoneb] 3 ml IH Q6HR PRN #180 vial.neb 05/01/19 Metoprolol XL (24 HR) Succ [Toprol 150 mg PO DAILY #90 tab.er.24h 05/01/19 Xl] cephALEXin [Keflex] 500 mg PO BID 5 Days #10 capsule 05/01/19 Allergies Allergy/AdvReac Type Severity Reaction Status Date / Time No Known Allergies Allergy Verified 04/26/19 15:22 Review of Systems: Constitutional: No fever Vision: No blurred vision ENT: No new rhinorrhea Respiratory: No new cough Allergic: No allergies : No blood in urine GI: No blood in stool Hematologic: No new bruising Dermatologic: No skin rash Musculoskeletal: No pain in the extremities Neuro: No numbness of the extremities Past Medical History - Past Medical History Medical history: Reports: cancer, diabetes, hypertension Psychiatric history: Reports: no psych history - Social History Smoking Status: Former smoker Alcohol use: Reports: occasionally Drug use: Reports: none Physical Exam CONSTITUTIONAL: Alert and oriented X3, well-nourished, well appearing, in no apparent distress HEAD: Normocephalic; atraumatic. EYES: PERRL, no scleral icterus. NOSE: The nose is normal in appearance without rhinorrhea RESP: Normal chest excursion with respiration; breath sounds clear and equal bilaterally; no wheezes, rhonchi, or rales CARD: Regular rhythm and tachycardic, without murmurs, rub or gallop ABD: Non-distended; non-tender, soft,without rigidity, rebound or guarding SKIN: Normal for age and race; warm and dry; no apparent lesions - General Limitations: no limitations General appearance: alert Course Vital Signs Temperature 98.0 F 05/03/19 15:45 Pulse Rate 155 05/03/19 15:45 Respiratory Rate 20 05/03/19 15:45 Blood Pressure 152/99 05/03/19 15:45 O2 Sat by Pulse Oximetry 84 05/03/19 15:45 Temperature 97.9 F 05/03/19 20:42 Pulse Rate 151 05/03/19 20:42 Respiratory Rate 20 05/03/19 20:42 Blood Pressure 134/71 05/03/19 20:42 O2 Sat by Pulse Oximetry 90 05/03/19 20:42 Oxygen Delivery Oxygen Delivery Nasal Cannula Medical Decision Making - [facility] Narrative Medical decision making narrative: She was discharged 2 days ago and her EKG does show atrial flutter with rapid ventricular response with a rate of 153 bpm and the patient will receive Cardizem 10 mg IV and then 10 g per hour. She does take Cardizem and Lopressor as an outpatient so for that reason we will start with tenderness of 20. The patient will be watched closely. Will likely be admitted to the hospital. Ilda chambers she is bright and alert and well in appearance. I did previous record and she was seen by the hospitalist and she states she has not seen by senior project controls specialist so I will discuss with cardiology also. 1632 I did check back on the patient. She just received the Cardizem so we will see if this has any effect. 1654 I did speak with the hospitalist accepts the patient for admission. I did turn the admission. The patient received a second bolus of Cardizem 5 mg making a total of 15 mg. The patient then went upstairs and I did speak with the nurse a few minutes ago who said that when she went up her heart rate had not decreased from 150 so I just a few minutes ago spoke with the hospitalist again to make sure there are aware that the patient still had elevated heart rate and he said he would communicate this information to the hospitalist who is seeing the patient upstairs at this time and that they would handle things from here. 184 - Medical Records Medical records reviewed: Yes I reviewed the patient's medical records. - Lab Data Lab results reviewed: Yes I reviewed the patient's lab results. Result diagrams: 05/03/19 16:00 05/03/19 16:00 Lab Results 05/03/19 05/03/19 Range/Units 16:00 16:00 WBC 16.3 H D (4.3-11.1) K/mcL RBC 4.42 (3.82-4.97) M/mcL Hgb 12.9 D (11.5-15.4) g/dL Hct 41.2 (35.3-44.9) % MCV 93.2 (83.0-100.0) fL MCH 29.2 (28.0-33.3) pg MCHC 31.3 L (31.6-35.5) g/dL RDW 15.0 H (11.5-14.5) % Plt Count 354 (140-400) K/mcL MPV 10.2 (9.4-12.4) fL Immature Gran % 0.8 (0-4) % Seg Neutrophils % 88.2 % Lymphocytes % 5.9 % Monocytes % 4.9 % Eosinophils % 0.1 % Basophils % 0.1 % Neutrophils # 14.4 H (1.6-8.9) K/mcL Lymphocytes # 1.0 (0.6-4.6) K/mcL Monocytes # 0.8 (0.0-1.3) K/mcL Eosinophils # 0.0 (0.0-0.6) K/mcL Basophils # 0.0 (0.0-0.2) K/mcL Sodium 139 (136-145) mEq/L Potassium 3.6 (3.5-5.1) mEq/L Chloride 96 L (98-107) mEq/L Carbon Dioxide 34 H (23-29) mEq/L BUN 20 (8-23) mg/dL Creatinine 0.77 (0.60-1.20) mg/dL Est GFR ( Amer) > 60 (> 60) Est GFR (Non-Af Amer) > 60 (> 60) BUN/Creatinine Ratio 26 (6-26) Glucose 191 H (70-105) mg/dL Calculated Osmolality 296 (280-300) Calcium 9.2 (8.6-10.3) mg/dL Troponin I < 0.03 (< 0.04) ng/mL Critical Care Time Critical Care Time: Yes Total Critical Care Time: 30 Attestation: 30 minutes of critical care time were spent with the patient with atrial flutter with rapid ventricular response and multiple doses of medicines and reassessments
[2019-05-03 16:34] LABS: Basophils % 0.1 %; Eosinophils % 0.1 %; Hematocrit 41.2 % (35.3-44.9); Immature Granulocytes % 0.8 % (0-4); Lymphocytes % 5.9 %; Mean Corpuscular HGB Conc 31.3 g/dL (31.6-35.5); Mean Corpuscular Hemoglobin 29.2 pg (28.0-33.3); Mean Corpuscular Volume 93.2 fL (83.0-100.0); Mean Platelet Volume 10.2 fL (9.4-12.4); Monocytes # 0.8 K/mcL (0.0-1.3); Monocytes % 4.9 %; Neutrophils # 14.4 K/mcL (1.6-8.9); Platelet Count 354 K/mcL (140-400); Red Blood Count 4.42 M/mcL (3.82-4.97); Segmented Neutrophils % 88.2 %; White Blood Count 16.3 K/mcL (4.3-11.1)
[2019-05-03 16:35] LABS: Hemoglobin 12.9 g/dL (11.5-15.4)
[2019-05-03 16:55] LABS: BUN/Creatinine Ratio 26 (6-26); Blood Urea Nitrogen 20 mg/dL (8-23); Calcium 9.2 mg/dL (8.6-10.3); Carbon Dioxide 34 mEq/L (23-29); Chloride 96 mEq/L (98-107); Glucose 191 mg/dL (70-105); Osmolality,Calculated 296 (280-300); Potassium 3.6 mEq/L (3.5-5.1); Sodium 139 mEq/L (136-145); Troponin I < 0.03 ng/mL (< 0.04); eGFR For African Americans > 60 (> 60); eGFR For Non-African Americans > 60 (> 60)
[2019-05-03] MEDS ORDERED: Naloxone 0.4 MG/ML INJ IVP PRN (18:17)
[2019-05-03] MEDS ORDERED: Ondansetron 4 MG/2 ML VIAL IVP PRN (18:17)
[2019-05-03] MEDS ORDERED: Acetaminophen 325 MG TABLET PO PRN (18:17)
--- NOTE | 2019-05-03 18:17 | Internal Med History&Physical ---
Date of Encounter: 05/03/19 Time of Encounter: 18:17 Internal Medicine - H&P: HPI History of present illness: Ms. Win is a 78 year old female with a past medical history of diabetes, CHF, hypertension, A. fib, endometrial cancer, presenting today with increased heart rate. When she woke up this morning patient checked her heart rate and was about 150, she then took her medications and heart rate did not improve. She was asymptomatic at that time, denied palpitations, lightheadedness, chest pain, shortness of breath. Later in the morning when she went to take shower she noticed that it took more effort than usual, and she became somewhat short of breath. Her heart rate did not improve throughout the day, so she called her primary care doctor who told her to come to the emergency room. Patient was recently discharged from [facility] following a stay from 04/26/19 until 05/01/19. At that time she presented with A. fib with RVR and bilateral swelling in the legs. On admission she was diagnosed with congestive heart failure and atrial fibrillation. She was treated for acute respiratory failure with hypoxia secondary to CHF, and pulmonary embolism, and possible COPD exacerbation. She had been discharged on Eliquis for the PE, and new cardiac medications including metoprolol, Lasix, and diltiazem. In the ED today patient remained tachycardic. EKG reportedly showed atrial flut ter with rapid ventricular response with a rate of 153. Troponin was less than 0.03. Chest x-ray showed bibasilar opacity unchanged from previous admission, mild pulmonary vascular congestion, and stable cardio regularly. She was started on a Cardizem drip and admitted for further observation. Past Med Surg Social Fam HX - Past Medical History Medical history: cancer, diabetes, hypertension Additional medical history: Endometrial CA Psychiatric history: no psych history - Social History Smoking Status: Former smoker Alcohol use: occasionally Drug use: none Internal Medicine - H&P: Meds metFORMIN [Glucophage] 1,000 mg PO BIDWM 04/26/19 [History] Apixaban [Eliquis] 5 mg PO BID #60 tablet 04/28/19 [Rx] Diltiazem CD (24hr) [Cardizem CD] 360 mg PO DAILY #60 cap.er.24h 04/29/19 [Rx] Furosemide [Lasix] 40 mg PO DAILY #30 tablet 04/29/19 [Rx] predniSONE [PredniSONE] 40 mg PO DAILY 4 Days #8 tablet 04/29/19 [Rx] Ipratropium/Albuterol Neb [Duoneb] 3 ml IH Q6HR PRN #180 vial.neb 05/01/19 [Rx] Metoprolol XL (24 HR) Succ [Toprol Xl] 150 mg PO DAILY #90 tab.er.24h 05/01/19 [Rx] cephALEXin [Keflex] 500 mg PO BID 5 Days #10 capsule 05/01/19 [Rx] Allergy/AdvReac Type Severity Reaction Status Date / Time No Known Allergies Allergy Verified 04/26/19 15:22 All Systems PM: A 10-system review of systems was performed and is negative for pertinent findings except as documented above in the HPI. Review of systems: Constitutional: Denies fevers, chills, weight loss, generalized fatigue. Reports weight gain of 20 lbs since leg swelling began Head/Neck: Denies PENA, neck stiffness EENT: Denies vision changes/blurriness, rhinorrhea, congestion, sore throat CVS: Denies chest pain, palpitations, orthopnea, edema, PND Pulm: Denies cough, sputum, hemoptysis, wheezing. Reports shortness of breath on exertion GI: Denies abdominal pain, nausea, vomiting, constipation, melena, hematemasis. Reports chronic diarrhea : Denies dysuria, increased frequency, urgency, hematuria. Reports incontinence Heme: Denies ease of bleeding or bruising MSK: Denies joint pain, limited ROM Skin: Denies rashes, ulcers, color changes Neuro: Denies PENA, paresthesias, focal deficits, ataxia - Constitutional Vitals: Temp Pulse Resp BP Pulse Ox 98 F 152 20 145/79 93 05/03/19 17:36 05/03/19 17:36 05/03/19 17:36 05/03/19 17:36 05/03/19 17:36 Exam: Gen: Vitals noted. No acute distress. Sitting comfortably in bed Eyes: anicteric sclerae, moist conjunctivae. Pupils equal, round and reactive to light HENT: Atraumatic, normocephalic; oropharynx clear with moist mucous membranes and no mucosal ulcerations Neck: Trachea midline; supple, no thyromegaly or lymphadenopathy Cardiac: Tachycardic, no murmurs, rubs or gallops, S1/S2 Pulmonary: BL diffuse wheezing. No accessory muscle use. No rales or rhonchi, equal chest expansion Abdomen: soft, nontender, no rigidity or guarding. No masses or hepatosplenomegaly MSK: ROM intact, no joint swelling noted Extremities: BLE edema 2+, nontender calf, no cyanosis or clubbing. Dry scaly skin on shins, light red coloration Skin: Normal temperature, turgor and texture; no rash, ulcers or subcutaneous nodules Neuro: moves all extremities, no focal deficits. Psych: Appropriate mood and behavior. A&Ox3 Internal Med - H&P Results - Labs CBC & Chem 7: 05/03/19 16:00 05/03/19 16:00 Labs: Short CBC 05/03/19 Range/Units 16:00 WBC 16.3 H D (4.3-11.1) K/mcL Hgb 12.9 D (11.5-15.4) g/dL Hct 41.2 (35.3-44.9) % Plt Count 354 (140-400) K/mcL Neutrophils # 14.4 H (1.6-8.9) K/mcL BMP 05/03/19 16:00 Sodium 139 Potassium 3.6 Chloride 96 L Carbon Dioxide 34 H BUN 20 Creatinine 0.77 Glucose 191 H Calcium 9.2 Cardiac Enzymes 05/03/19 Range/Units 16:00 Troponin I < 0.03 (< 0.04) ng/mL - Impressions ITS Impressions Chest X-Ray 05/03/19 16:23 IMPRESSION: No significant change to right basilar opacity with blunting of right costophrenic angle compatible with atelectasis versus infiltrate along with small right pleural effusion. Mild pulmonary vascular congestion without overt pulmonary edema, similar to prior exam. Stable cardiomegaly. D/ / 05/03/2019 16:46:23 Migel Rios MD / [facility] Interpreting Provider: Migel Rios MD - Assessment and Plan (1) Atrial flutter with rapid ventricular response Current Visit: Yes Status: Acute Assessment and plan: Pt presenting with atrial flutter with rapid ventricular response - HR at 153 on admission - Asymptomatic - Recent admission for CHF exacerbation and Afib - EKG shows Atrial flutter Plan: - Cardizem drip - Continue home Cardiac medications - Continuous cardiac monitoring (2) Congestive heart failure Current Visit: Yes Status: Chronic Assessment and plan: CHF diagnosed on previous admission - Echo 04/27/19: LVEF 50-55%. Indeterminate diastolic dysfunction - BL lower extremity edema - Ct chest: mild pulmonary vascular congestion - Some SOB on exertion Plan: - Lasix IV 40 daily - Home metoprolol XL 150 daily - Continue to monitor Qualifiers: Heart failure type: diastolic Heart failure chronicity: chronic Qualified Code(s): I50.32 - Chronic diastolic (congestive) heart failure (3) Atrial fibrillation Current Visit: No Status: Chronic Assessment and plan: Hx of Afib - Diagnosed on previous admission Plan: - Continuous cardiac monitoring - Home eliquis - Home metoprolol - cardizem drip Qualifiers: Atrial fibrillation type: unspecified Qualified Code(s): I48.91 - Unspecified atrial fibrillation (4) Pulmonary embolism Current Visit: No Status: Chronic Assessment and plan: Pulmonary embolism - CT chest previous admission: 04/26/19: small nonocclusive emboli in right upper and left lower lobes - Discharged on Eliquis Plan: - Continuous O2 monitoring - 2L O2 via nasal canula - Continue eliquis Qualifiers: Pulmonary embolism type: other Chronicity: acute Acute cor pulmonale presence: without acute cor pulmonale Qualified Code(s): I26.99 - Other pulmonary embolism without acute cor pulmonale (5) COPD (chronic obstructive pulmonary disease) Current Visit: Yes Status: Acute Assessment and plan: Likely COPD - Former heavy smoker - BL wheezing - SOB on exertion - Responeded to inhaled Bronchodilators and steroids on previous admission Plan: - Continuous O2 monitoring - Prednisone 40 for 5 days - Duonebs q6 Qualifiers: COPD type: unspecified COPD Qualified Code(s): J44.9 - Chronic obstructive pulmonary disease, unspecified (6) Diabetes Current Visit: Yes Status: Chronic Assessment and plan: Hx of DM - A1C 7.1 on 04/26/19 - On metformin at home Plan: - Monitor Glucose - SSI for correction - Diabetic diet Qualifiers: Diabetes mellitus type: type 2 Diabetes mellitus custodial insulin use: without intermediate teacher use Diabetes mellitus complication status: without complication Qualified Code(s): E11.9 - Type 2 diabetes mellitus without complications (7) Hypertension Current Visit: Yes Status: Chronic Assessment and plan: Hx of HTN - Continue to monitor - on Metoprolol, cardizem Qualifiers: Hypertension type: essential hypertension Qualified Code(s): I10 - Essential (primary) hypertension (8) DVT prophylaxis Current Visit: Yes Status: Acute Assessment and plan: On eliquis - Summary of Assessment and Plan Summary of Assessment and Plan: Mrs Win is a 78 year-old F with a past medical HX of CHF, Afib, HTN, DM and Endometrial cancer admitted for Atrial flutter with RVR. Stable, no reported symptoms at admission. She was started on a cardizem drip in the ED. - Time Spent With Patient Total time spent is greater than 50% in coordination of care (as documented) at patient's floor/unit and/or counseling patient:
[2019-05-03] MEDS ORDERED: Ipratropium/Albuterol Neb 3 ML IH SCH ×2 (18:45→22:00)
[2019-05-03] MEDS ORDERED: Furosemide 40 MG/4 ML VIAL IVP SCH (18:47)
[2019-05-03] MEDS ORDERED: Dextrose Gel 15 GM/37.5 ML TUBE PO PRN ×2 (18:53)
[2019-05-03] MEDS ORDERED: D5% in Water 1,000 ML IVC PRN (18:53)
[2019-05-03] MEDS ORDERED: *HR* Dextrose 50 % in Water (Syg) 50 ML SYRINGE IVP PRN (18:53)
[2019-05-03] MEDS ORDERED: Insulin LISPRO 300 UNITS/3 ML VIAL SQ SCH ×2 (19:00→21:00)
[2019-05-03] MEDS ORDERED: Ipratropium/Albuterol Neb 3 ML IH PRN (20:28)
[2019-05-03] MEDS ORDERED: Apixaban 5 MG TABLET PO SCH (21:00)
[2019-05-03] MEDS ORDERED: *HR* Metoprolol 5 MG/5 ML VIAL IVP PRN (21:55)
[2019-05-03] MEDS: Levalbuterol 1 PUFF INHALER IH SCH (23:26)
[2019-05-04] MEDS ORDERED: Amiodarone Premix 360 MG/200 ML BAG IVC ONE ×3 (01:00→07:20)
[2019-05-04] MEDS ORDERED: Amiodarone Premix 150 MG/100 ML BAG IVPB ONE (01:00)
[2019-05-04 04:02] LABS: Basophils % 0.1 %; Eosinophils # 0.1 K/mcL (0.0-0.6); Eosinophils % 0.6 %; Hematocrit 39.7 % (35.3-44.9); Hemoglobin 12.2 g/dL (11.5-15.4); Immature Granulocytes % 0.9 % (0-4); Lymphocytes # 1.3 K/mcL (0.6-4.6); Lymphocytes % 10.6 %; Mean Corpuscular HGB Conc 30.7 g/dL (31.6-35.5); Mean Corpuscular Hemoglobin 29.2 pg (28.0-33.3); Mean Platelet Volume 9.8 fL (9.4-12.4); Monocytes # 1.1 K/mcL (0.0-1.3); Monocytes % 9.5 %; Neutrophils # 9.3 K/mcL (1.6-8.9); Platelet Count 308 K/mcL (140-400); Red Blood Count 4.18 M/mcL (3.82-4.97); Red Cell Distribution Width 15.1 % (11.5-14.5); Segmented Neutrophils % 78.3 %; White Blood Count 11.9 K/mcL (4.3-11.1)
[2019-05-04 04:20] LABS: BUN/Creatinine Ratio 17 (6-26); Blood Urea Nitrogen 18 mg/dL (8-23); Carbon Dioxide 38 mEq/L (23-29); Chloride 94 mEq/L (98-107); Sodium 140 mEq/L (136-145)
[2019-05-04 04:21] LABS: Alanine Aminotransferase 30 Units/L (7-52); Albumin 3.5 g/dL (3.5-5.7); Albumin/Globulin Ratio 1.5 (1.1-2.2); Alkaline Phosphatase 79 Units/L (34-104); Aspartate Amino Transferase 17 Units/L (13-39); Bilirubin,Total 0.7 mg/dL (0.3-1.0); Calcium 8.6 mg/dL (8.6-10.3); Globulin 2.3 g/dL (2.4-3.5); Glucose 185 mg/dL (70-105); Osmolality,Calculated 297 (280-300); Total Protein 5.8 g/dL (6.4-8.9); eGFR For African Americans > 60 (> 60); eGFR For Non-African Americans 52 (> 60)
[2019-05-04] MEDS: Levalbuterol 1 PUFF INHALER IH SCH (04:30)
[2019-05-04] MEDS ORDERED: Amiodarone Premix 360 MG/200 ML BAG IVC SCH (07:00)
[2019-05-04] MEDS ORDERED: *HR* Dextrose 50 % in Water (Syg) 50 ML SYRINGE IVP PRN (07:20)
[2019-05-04] MEDS ORDERED: Ipratropium/Albuterol Neb 3 ML IH PRN (07:20)
[2019-05-04] MEDS ORDERED: Dextrose Gel 15 GM/37.5 ML TUBE PO PRN ×2 (07:20)
[2019-05-04] MEDS ORDERED: Naloxone 0.4 MG/ML INJ IVP PRN (07:20)
[2019-05-04] MEDS ORDERED: *HR* Metoprolol 5 MG/5 ML VIAL IVP PRN (07:20)
[2019-05-04] MEDS ORDERED: Acetaminophen 325 MG TABLET PO PRN (07:20)
[2019-05-04] MEDS ORDERED: D5% in Water 1,000 ML IVC PRN (07:20)
[2019-05-04] MEDS ORDERED: Ondansetron 4 MG/2 ML VIAL IVP PRN (07:20)
--- NOTE | 2019-05-04 07:32 | Internal Med Progress Note ---
Hospitalist Progress Note - Encounter Date of Encounter: 05/04/19 Time of Encounter: 07:29 - Subjective Interval History: Patient seen and examined. Afebrile. Remains tachycardic. Overnight heart rate did not come down with Cardizem drip. She was changed to amiodarone drip and moved to [address] [place] [address]. Patient reports no symptoms. Denies headache, lighthea dedness, palpitations, chest pain, shortness of breath, constipation, diarrhea, abdominal pain. Patient reports she is happy to have catheter in due to her history of incontinence. - Exam Vitals: Temp Pulse Resp BP Pulse Ox 97.7 F 146 18 144/90 94 05/04/19 07:16 05/04/19 07:16 05/04/19 07:16 05/04/19 07:16 05/04/19 07:16 Exam: Gen: Vitals noted. No acute distress. Sitting comfortably in bed Eyes: anicteric sclerae, moist conjunctivae. Pupils equal, round and reactive to light HENT: Atraumatic, normocephalic; oropharynx clear with moist mucous membranes and no mucosal ulcerations Neck: Trachea midline; supple, no thyromegaly or lymphadenopathy Cardiac: Tachycardic, no murmurs, rubs or gallops, S1/S2 Pulmonary: BL diffuse wheezing. No accessory muscle use. No rales or rhonchi, equal chest expansion Abdomen: soft, nontender, no rigidity or guarding. No masses or hepatosplenomegaly MSK: ROM intact, no joint swelling noted Extremities: BLE edema 2+, nontender calf, no cyanosis or clubbing. Dry scaly skin on shins, light red coloration Skin: Normal temperature, turgor and texture; no rash, ulcers or subcutaneous nodules Neuro: moves all extremities, no focal deficits. Psych: Appropriate mood and behavior. A&Ox3 - Assessment and Plan (1) Atrial flutter with rapid ventricular response Current Visit: Yes Status: Acute Assessment and Plan: Pt presenting with atrial flutter with rapid ventricular response - HR at 153 on admission - Asymptomatic - Recent admission for CHF exacerbation and Afib - EKG shows Atrial flutter Plan: - Cardiology consult - Amiodarone drip - PO Cardezim - Plan for cardioversion tomorrow if patient is still in RVR - Continue home Cardiac medications - Continuous cardiac monitoring - Continue diuresis - Continue home Eliquis (2) Congestive heart failure Current Visit: Yes Status: Chronic Assessment and Plan: CHF diagnosed on previous admission - Echo 04/27/19: LVEF 50-55%. Indeterminate diastolic dysfunction - BL lower extremity edema - Ct chest: mild pulmonary vascular congestion - Some SOB on exertion Plan: - Lasix IV 40 BID - Home metoprolol XL 150 daily - Continue to monitor (3) Atrial fibrillation Current Visit: No Status: Chronic Assessment and Plan: Hx of Afib - Diagnosed on previous admission Plan: - Continuous cardiac monitoring - Home eliquis - Home metoprolol - cardizem drip (4) Pulmonary embolism Current Visit: No Status: Chronic Assessment and Plan: Pulmonary embolism - CT chest previous admission: 04/26/19: small nonocclusive emboli in right upper and left lower lobes - Discharged on Eliquis Plan: - Continuous O2 monitoring - 2L O2 via nasal canula - Continue eliquis (5) COPD (chronic obstructive pulmonary disease) Current Visit: Yes Status: Acute Assessment and Plan: Likely COPD - Former heavy smoker - BL wheezing - SOB on exertion - Responeded to inhaled Bronchodilators and steroids on previous admission Plan: - Continuous O2 monitoring - Prednisone 40 for 5 days - Duonebs q6 (6) Diabetes Current Visit: Yes Status: Chronic Assessment and Plan: Hx of DM - A1C 7.1 on 04/26/19 - On metformin at home Plan: - Monitor Glucose - SSI for correction - Diabetic diet (7) Hypertension Current Visit: Yes Status: Chronic Assessment and Plan: Hx of HTN - Continue to monitor - on Metoprolol, cardizem (8) Hypokalemia Current Visit: Yes Status: Acute Assessment and Plan: Hypokalemia - Potassium 3.0 - Magnesium 1.5 Plan: replacing potassium and magnesiumm DVT Prophylaxis: On Eliquis - Summary of Assessment and Plan Summary of Assessment and Plan: Mrs Win is a 78 year-old F with a past medical HX of CHF, Afib, HTN, DM and Endometrial cancer admitted for Atrial flutter with RVR. Stable, no reported symptoms at admission. She was started on a cardizem drip in the ED. - Time Spent with Patient Total time spent is greater than 50% in coordination of care (as documented) at patient's floor/unit and/or counseling patient: Internal Medicine: Result - Labs CBC & Chem 7: 05/04/19 03:51 05/04/19 03:51 Labs: Short CBC 05/03/19 05/04/19 Range/Units 16:00 03:51 WBC 16.3 H D 11.9 H (4.3-11.1) K/mcL Hgb 12.9 D 12.2 (11.5-15.4) g/dL Hct 41.2 39.7 (35.3-44.9) % Plt Count 354 308 (140-400) K/mcL Neutrophils # 14.4 H 9.3 H (1.6-8.9) K/mcL BMP 05/03/19 05/04/19 16:00 03:51 Sodium 139 140 Potassium 3.6 3.0 L Chloride 96 L 94 L Carbon Dioxide 34 H 38 H BUN 20 18 Creatinine 0.77 1.04 Glucose 191 H 185 H Calcium 9.2 8.6 Cardiac Enzymes 05/03/19 Range/Units 16:00 Troponin I < 0.03 (< 0.04) ng/mL Liver Function 05/04/19 Range/Units 03:51 Total Bilirubin 0.7 (0.3-1.0) mg/dL AST 17 (13-39) Units/L ALT 30 (7-52) Units/L Alkaline Phosphatase 79 (34-104) Units/L Albumin 3.5 (3.5-5.7) g/dL - Impressions Impressions Chest X-Ray 05/03/19 16:23 IMPRESSION: No significant change to right basilar opacity with blunting of right costophrenic angle compatible with atelectasis versus infiltrate along with small right pleural effusion. Mild pulmonary vascular congestion without overt pulmonary edema, similar to prior exam. Stable cardiomegaly. D/ / 05/03/2019 16:46:23 Migel Rios MD / [facility] Inter[facility] Provider: Migel Rios MD Consult Discharge Plan - Plan Referrals: Guy Nagel MD [Primary Care Provider] - (2) Congestive heart failure Qualifiers: Heart failure type: diastolic Heart failure chronicity: chronic Qualified Code(s): I50.32 - Chronic diastolic (congestive) heart failure (3) Atrial fibrillation Qualifiers: Atrial fibrillation type: unspecified Qualified Code(s): I48.91 - Unspecified atrial fibrillation (4) Pulmonary embolism Qualifiers: Pulmonary embolism type: other Chronicity: acute Acute cor pulmonale presence: without acute cor pulmonale Qualified Code(s): I26.99 - Other pulmonary embolism without acute cor pulmonale (5) COPD (chronic obstructive pulmonary disease) Qualifiers: COPD type: unspecified COPD Qualified Code(s): J44.9 - Chronic obstructive pulmonary disease, unspecified (6) Diabetes Qualifiers: Diabetes mellitus type: type 2 Diabetes mellitus superintendent [employer] insulin use: without nursing home use Diabetes mellitus complication status: without comp lication Qualified Code(s): E11.9 - Type 2 diabetes mellitus without compl ications (7) Hypertension Qualifiers: Hypertension type: essential hypertension Qualified Code(s): I10 - Essential (primary) hypertension
[2019-05-04 07:56] LABS: Magnesium 1.5 mg/dL (1.6-2.6)
[2019-05-04] MEDS: Amiodarone Premix 360 MG/200 ML BAG IVC SCH ×2 (08:07→20:10)
[2019-05-04] MEDS: Metoprolol XL (24 HR) Succ 50 MG TAB.ER.24H PO SCH (08:09)
[2019-05-04] MEDS: predniSONE 20 MG TABLET PO SCH (08:10)
[2019-05-04] MEDS: Apixaban 5 MG TABLET PO SCH ×2 (08:13→20:08)
[2019-05-04] MEDS: Insulin LISPRO 300 UNITS/3 ML VIAL SQ SCH ×4 (08:23→21:22)
[2019-05-04] MEDS ORDERED: Furosemide 40 MG/4 ML VIAL IVP SCH ×2 (09:00)
[2019-05-04] MEDS ORDERED: predniSONE 20 MG TABLET PO SCH (09:00)
[2019-05-04] MEDS ORDERED: Apixaban 5 MG TABLET PO SCH ×2 (09:00)
[2019-05-04] MEDS ORDERED: Metoprolol XL (24 HR) Succ 50 MG TAB.ER.24H PO SCH (09:00)
--- NOTE | 2019-05-04 09:41 | Cardiology Consult Note ---
<Clark Drake - Last Filed: 05/04/19 13:29> Date of Encounter: 05/04/19 Time of Encounter: 09:39 Assessment and Plan (1) Atrial fibrillation with rapid ventricular response Current Visit: No Status: Resolved Assessment: - Patient initially presented after checking her heart rate at home and finding it to be elevated at 150 bpm - On arrival, patient was found to have atrial flutter with RVR with a 2:1 pattern - She has a recent admission from 04/26-05/01, during which she was treated for A. fib with RVR, CHF exacerbation, and PE - Was discharged on Cardizem, metoprolol, Lasix, and Eliquis; reports compliance with all medications - She was given several boluses of Cardizem in the ED and was started on Cardizem drip - Patient was switched to amiodarone drip after cardizem drip did not bring down heart rate - During interview, her heart rate is 105-110 on the amiodarone drip Plan: - Continue amiodarone drip, and add patient's home PO cardizem - If patient is still in RVR tomorrow, plan is for carvioverison - Keep patient NPO at midnight - Lopressor 5 mg PRN for tachycardia with rate >120 (2) Heart failure with preserved ejection fraction Current Visit: Yes Status: Acute - Patient was recently diagnosed with heart failure - TTE 04/27/19: EF 50-55% with indeterminate diastolic function - Presented with signs of volume overload: b/l LE edema, vascular congestion on CXR, and crackles on auscultation - Total fluid balance since admission is +84.7 Plan - Lasix has been increased from 40 mg IV daily to 40 mg IV BID - Strict intake and output, fluid restriction, daily weights Qualifiers: Qualified Code(s): I50.30 - Unspecified diastolic (congestive) heart failure (3) Pulmonary embolism Current Visit: No Status: Chronic Pulmonary embolism - CT chest previous admission: 04/26/19: small nonocclusive emboli in right upper and left lower lobes - Discharged on Eliquis Plan: - Continuous O2 monitoring - 2L O2 via nasal canula - Continue eliquis Qualifiers: Pulmonary embolism type: other Chronicity: acute Acute cor pulmonale presence: without acute cor pulmonale Qualified Code(s): I26.99 - Other pulmonary embolism without acute cor pulmonale (4) Diabetes Current Visit: Yes Status: Chronic - Management per primary team Qualifiers: Diabetes mellitus type: type 2 Diabetes mellitus mcc insulin use: without termite technician use Diabetes mellitus complication status: without complication Qualified Code(s): E11.9 - Type 2 diabetes mellitus without complications (5) COPD (chronic obstructive pulmonary disease) Current Visit: Yes Status: Acute - Management per primary team Qualifiers: COPD type: unspecified COPD Qualified Code(s): J44.9 - Chronic obstructive pulmonary disease, unspecified Discussion w patient/family: The assessment and plan as outlined above was discussed with the patient and/or family members who expressed understanding and agreement. All questions were answered. Thank you for involving us in the care of your patient. Please call with any questions. History of Present Illness Consult date: 05/04/19 Consult reason: Atrial flutter with RVR History of present illness: Ms. Coronado is a 78-year-old female with a PMH of DM, HTN, CHF, COPD on 2 L of home O2, A. fib, and endometrial cancer who presented to [facility] with the chief complaint of increased heart rate. Discovered when she woke up that her heart rate was approximately 150. She took her home medications, which did not improve her heart rate. She was asymptomatic during this episode. Later in the day, she developed shortness of breath with exertion. She was told to present to the emergency department by her PCP. She was recently discharged from [facility] during his stay from 04/26-05/01. She was treated A. fib with RVR, CHF exace rbation, and PE. She was discharged on metoprolol, Lasix, diltiazem, and Eliquis. On arrival, vitals demonstrated a heart rate of 155 bpm, respiratory rate of 20, and O2 saturation of 84, blood pressure 152/99. All other vital signs were within normal limits. Labs demonstrated an elevated white count at 16.3 with left shift. Troponin was negative. CXR demonstrated mild pulmonary vascular c ongestion. EKG demonstrated atrial flutter with RVR, rate 153. She was given multiple boluses of Cardizem. She was then started on Cardizem drip and admitted for further observation. Overnight, her heart rate did not come down. The cardiology service is consulted for atrial flutter with rapid ventricular response. During interview this morning, patient reports that she is feeling well. She has remained asympomatic during this admission, and denies palpitations, chest pain, shortness of breath, dizziness, lightheadedness, orthopnea, or diaphoresis. She reports that she is urinating well. She is currently on lasix 40mg IV daily. Plan is to increase lasix from 40mg IV daily to 40 mg IV BID. We will continue amiodarone drip, and add patient's home PO cardizem. If patient is still in RVR tomorrow, plan is for carvioverison. We will keep patient NPO at midnight. Past Med Surg Social Fam HX - Past Medical History Medical history: cancer, diabetes, hypertension Additional medical history: Endometrial CA, 2008 Psychiatric history: no psych history - Social History Smoking Status: Former smoker Alcohol use: occasionally Drug use: none Medications and Allergies metFORMIN [Glucophage] 1,000 mg PO BIDWM 04/26/19 [History] Apixaban [Eliquis] 5 mg PO BID #60 tablet 04/28/19 [Rx] Diltiazem CD (24hr) [Cardizem CD] 360 mg PO DAILY #60 cap.er.24h 04/29/19 [Rx] Furosemide [Lasix] 40 mg PO DAILY #30 tablet 04/29/19 [Rx] predniSONE [PredniSONE] 40 mg PO DAILY 4 Days #8 tablet 04/29/19 [Rx] Ipratropium/Albuterol Neb [Duoneb] 3 ml IH Q6HR PRN #180 vial.neb 05/01/19 [Rx] Metoprolol XL (24 HR) Succ [Toprol Xl] 150 mg PO DAILY #90 tab.er.24h 05/01/19 [Rx] cephALEXin [Keflex] 500 mg PO BID 5 Days #10 capsule 05/01/19 [Rx] Allergy/AdvReac Type Severity Reaction Status Date / Time No Known Allergies Allergy Verified 04/26/19 15:22 All Systems Review: The remainder of the systems were reviewed and are negative - Cardiovascular Cardiovascular: leg edema, rapid heart rate, no chest pain at rest, no claudication, no diaphoresis, no dyspnea at rest, no orthopnea, no palpitations - Respiratory Respiratory: no cough, no dyspnea Physical Examination Vital Signs, Last 4 Hours Temp Pulse Resp BP Pulse Ox 05/04/19 07:16 97.7 F 146 18 144/90 94 General: Conversant, No Apparent Distress HEENT: Atraumatic, Normocephaly, Mucus Membranes Moist Cardiac: Reg Rate and Rhythm, Normal S1 and S2, No Murmur Lungs: Other (Diminished breath sounds b/l, bibasilar crackles) Neuro: Alert and responsive, No focal deficits noted Skin: No rashes noted on visualized skin Extremities: Other (+2 pitting edema in the lower extremities b/l) Results 05/04/19 03:51 05/04/19 03:51 Lab Results 05/03/19 05/03/19 05/04/19 16:00 16:00 03:51 WBC 16.3 H D 11.9 H Hgb 12.9 D 12.2 Hct 41.2 39.7 Plt Count 354 308 Sodium 139 Potassium 3.6 Chloride 96 L Carbon Dioxide 34 H BUN 20 Creatinine 0.77 Glucose 191 H Calcium 9.2 Magnesium Total Bilirubin AST ALT Alkaline Phosphatase Troponin I < 0.03 05/04/19 03:51 WBC Hgb Hct Plt Count Sodium 140 Potassium 3.0 L Chloride 94 L Carbon Dioxide 38 H BUN 18 Creatinine 1.04 Glucose 185 H Calcium 8.6 Magnesium 1.5 L Total Bilirubin 0.7 AST 17 ALT 30 Alkaline Phosphatase 79 Troponin I Consult Discharge Plan - Plan Referrals: Guy Nagle MD [Primary Care Provider] - < A - Last Filed: 05/04/19 14:25> Date of Encounter: 05/04/19 - Attending Attestation I have personally performed a face to face evaluation on this patient. I have reviewed and agree with the documented findings and care plan as documented by the resident. History and Exam by me shows: 78-year-old very pleasant female who was diagnosed with atrial fibrillation a week ago and PE and started on Eliquis then, presenting with clinical features of acute diastolic CHF exacerbation in the setting of A. fib / aflutter with RVR . She reports exertional dyspnea in the last 1 month with orthopnea and bilateral leg swelling in the last week. No chest pain. AAOX3 in NAD at the bedside Hemodynamically stable Cardiopulmonary exam revealed S1, S2, no murmur; mild bibasilar rales Rhythm reviewed - atrial fibrillation, no acute ST T changes Echo preserved EF, no significant valvular heart disease Impression/plan: 1. A. fib with RVR. Continue amiodarone drip, resulting home dose of Cardizem. Continue Eliquis 5 mg twice a day. If still not rate controlled by tomorrow we will recommend for CLAY /cardioversion. Ischemic workup as outpatient 2. Acute diastolic CHF exacerbation. Increase Lasix to IV 40 mg twice daily. Strict inputs and outputs monitoring. Fluid restricted low-salt diet 3. Hypokalemia. Please replace electrolytes 4. Type 2 diabetes mellitus on long-term insulin, with no compression 5. Pulmonary embolism. Continue Eliquis 5 mg twice a day Thanks for the consult, please call with questions. Simeon Chu MD [facility] Assessment and Plan Discussion w patient/family: The assessment and plan as outlined above was discussed with the patient and/or family members who expressed understanding and agreement. All questions were answered. Thank you for involving us in the care of your patient. Please call with any questions. History of Present Illness History of present illness: Ms. Coronado is a 78 year old female All Systems Review: The remainder of the systems were reviewed and are negative Physical Examination Vital Signs, Last 4 Hours Temp Pulse Resp BP Pulse Ox 05/04/19 11:00 97.9 F 110 18 133/82 92 Results 05/04/19 03:51 05/04/19 03:51 Lab Results 05/03/19 05/03/19 05/04/19 16:00 16:00 03:51 WBC 16.3 H D 11.9 H Hgb 12.9 D 12.2 Hct 41.2 39.7 Plt Count 354 308 Sodium 139 Potassium 3.6 Chloride 96 L Carbon Dioxide 34 H BUN 20 Creatinine 0.77 Glucose 191 H Calcium 9.2 Magnesium Total Bilirubin AST ALT Alkaline Phosphatase Troponin I < 0.03 05/04/19 03:51 WBC Hgb Hct Plt Count Sodium 140 Potassium 3.0 L Chloride 94 L Carbon Dioxide 38 H BUN 18 Creatinine 1.04 Glucose 185 H Calcium 8.6 Magnesium 1.5 L Total Bilirubin 0.7 AST 17 ALT 30 Alkaline Phosphatase 79 Troponin I
--- NOTE | 2019-05-04 13:40 | Electrocardiograph Report ---
[place] [facility] Test Date: 2019-05-03 Pat Name: Dalia Coronado Department: [id number] Room: 2N11 Gender: F Assistant Manager: : 1940 Requested By: Helio Snider Order Number: [id number] Reading MD: Candelario Montalvo Measurements Intervals [place] Rate: 153 P: -74 AR: 59 QRS: -20 QRSD: 77 T: 75 QT: 292 QTc: 466 Interpretive Statements Supraventricular tachycardia Borderline left axis deviation Anterior infarct, old Repolarization abnormality, prob rate related Electronically Signed On 05-04-2019 13:38:56 EDT by Candelario Montalvo
[2019-05-04] MEDS: Diltiazem CD (24hr) 180 MG CAPSULE PO SCH (14:06)
[2019-05-04] MEDS: Levalbuterol Neb 0.63 MG/3 ML IH SCH ×2 (15:19→22:38)
[2019-05-04] MEDS: Furosemide 40 MG/4 ML VIAL IVP SCH (20:07)
[2019-05-04] MEDS: Insulin DETEMIR 100 UNIT/ML X5UNITS SQ SCH (21:22)
[2019-05-05 01:34] LABS: Hematocrit 40.2 % (35.3-44.9); Hemoglobin 12.3 g/dL (11.5-15.4); Mean Corpuscular HGB Conc 30.6 g/dL (31.6-35.5); Mean Corpuscular Hemoglobin 28.6 pg (28.0-33.3); Mean Corpuscular Volume 93.5 fL (83.0-100.0); Platelet Count 321 K/mcL (140-400); Red Cell Distribution Width 14.9 % (11.5-14.5); White Blood Count 13.6 K/mcL (4.3-11.1)
[2019-05-05 02:29] LABS: Alanine Aminotransferase 30 Units/L (7-52); Albumin 3.6 g/dL (3.5-5.7); Albumin/Globulin Ratio 1.6 (1.1-2.2); Alkaline Phosphatase 78 Units/L (34-104); Aspartate Amino Transferase 17 Units/L (13-39); BUN/Creatinine Ratio 22 (6-26); Bilirubin,Direct 0.1 mg/dL (0.0-0.2); Bilirubin,Indirect 0.6 mg/dL (0.0-1.2); Bilirubin,Total 0.7 mg/dL (0.3-1.0); Blood Urea Nitrogen 23 mg/dL (8-23); Calcium 8.6 mg/dL (8.6-10.3); Carbon Dioxide 38 mEq/L (23-29); Chloride 95 mEq/L (98-107); Globulin 2.3 g/dL (2.4-3.5); Glucose 163 mg/dL (70-105); Osmolality,Calculated 295 (280-300); Potassium 4.1 mEq/L (3.5-5.1); Sodium 139 mEq/L (136-145); Thyroid Stimulating Hormone 2.382 mcIU/mL (0.340-5.600); Total Protein 5.9 g/dL (6.4-8.9); eGFR For African Americans > 60 (> 60); eGFR For Non-African Americans 52 (> 60)
[2019-05-05] MEDS: Levalbuterol Neb 0.63 MG/3 ML IH SCH ×4 (04:04→21:56)
--- NOTE | 2019-05-05 08:30 | Internal Med Progress Note ---
Hospitalist Progress Note - Encounter Date of Encounter: 05/05/19 Time of Encounter: 08:29 - Subjective Interval History: Patient seen and examined. Afebrile. No overnight events. Patient's heart rate and rhythm remains tachycardic and irregular. Patient denies lightheadedness, headache, chest pain, shortness of breath, palpitations, abdominal pain, constipation, diarrhea. Plan for CLAY with electrocardioversion today. Edit: Patient successfully cardioverted to normal sinus rhythm. She remains asymptomatic with normal heart rate. - Exam Vitals: Temp Pulse Resp BP Pulse Ox 98.3 F 107 18 133/77 95 05/05/19 07:18 05/05/19 07:18 05/05/19 07:18 05/05/19 07:18 05/05/19 07:18 Exam: Gen: Vitals noted, tachycardic. No acute distress. Sitting comfortably in bed Eyes: anicteric sclerae, moist conjunctivae. Pupils equal, round and reactive to light HENT: Atraumatic, normocephalic; oropharynx clear with moist mucous membranes and no mucosal ulcerations Neck: Trachea midline; supple, no thyromegaly or lymphadenopathy Cardiac: Tachycardic, no murmurs, rubs or gallops, S1/S2 Pulmonary: BL diffuse wheezing. No accessory muscle use. No rales or rhonchi, e qual chest expansion Abdomen: soft, nontender, no rigidity or guarding. No masses or hepatosplenomeg doretha MSK: ROM intact, no joint swelling noted Extremities: BLE edema 2+, nontender calf, no cyanosis or clubbing. Dry scaly skin on shins, light red coloration Skin: Normal temperature, turgor and texture; no rash, ulcers or subcutaneous nodules Neuro: moves all extremities, no focal deficits. Psych: Appropriate mood and behavior. A&Ox3 - Assessment and Plan (1) Atrial flutter with rapid ventricular response Current Visit: Yes Status: Acute Assessment and Plan: Pt presenting with atrial flutter with rapid ventricular response - HR at 153 on admission - Asymptomatic - Recent admission for CHF exacerbation and Afib - EKG shows Atrial flutter - Cardiology consult: DC on lasix 40 PO bid, decrease home cardizem to 180 mg daily - Successfully cardioverted to normal sinus rhythm Plan: - Cardiology consult - PO Cardezim 180 daily - Toprol 150 daily - Continue home Cardiac medications - Continuous cardiac monitoring - Continue diuresis Lasix 40 BID - Continue home Eliquis (2) Congestive heart failure Current Visit: Yes Status: Chronic Assessment and Plan: CHF diagnosed on previous admission - Echo 04/27/19: LVEF 50-55%. Indeterminate diastolic dysfunction - BL lower extremity edema - Ct chest: mild pulmonary vascular congestion - Some SOB on exertion Plan: - Lasix IV 40 BID - Home metoprolol XL 150 daily - Continue to monitor (3) Atrial fibrillation Current Visit: No Status: Chronic Assessment and Plan: Hx of Afib - Diagnosed on previous admission Plan: - Continuous cardiac monitoring - Home eliquis - Home metoprolol - cardizem drip (4) Pulmonary embolism Current Visit: No Status: Chronic Assessment and Plan: Pulmonary embolism - CT chest previous admission: 04/26/19: small nonocclusive emboli in right upper and left lower lobes - Discharged on Eliquis Plan: - Continuous O2 monitoring - 2L O2 via nasal canula - Continue eliquis (5) COPD (chronic obstructive pulmonary disease) Current Visit: Yes Status: Acute Assessment and Plan: Likely COPD - Former heavy smoker - BL wheezing - SOB on exertion - Responeded to inhaled Bronchodilators and steroids on previous admission Plan: - Continuous O2 monitoring - Prednisone 40 for 5 days Last Dose 05/07/19 - Xopenex q6h (6) Diabetes Current Visit: Yes Status: Chronic Assessment and Plan: Hx of DM - A1C 7.1 on 04/26/19 - On metformin at home Plan: - Monitor Glucose - SSI for correction - Diabetic diet (7) Hypertension Current Visit: Yes Status: Chronic Assessment and Plan: Hx of HTN - Continue to monitor - on Metoprolol, cardizem DVT Prophylaxis: On Eliquis - Summary of Assessment and Plan Summary of Assessment and Plan: Mrs Win is a 78 year-old F with a past medical HX of CHF, Afib, HTN, DM and Endometrial cancer admitted for Atrial flutter with RVR. Stable, no reported symptoms at admission. She was started on a cardizem drip in the ED. Amiodarone drip did not stop flutter. CLAY and electrocardioversion on 05/05/19, successful. - Time Spent with Patient Total time spent is greater than 50% in coordination of care (as documented) at patient's floor/unit and/or counseling patient: Internal Medicine: Result - Labs CBC & Chem 7: 05/05/19 01:18 05/05/19 01:18 Labs: Short CBC 05/05/19 Range/Units 01:18 WBC 13.6 H (4.3-11.1) K/mcL Hgb 12.3 (11.5-15.4) g/dL Hct 40.2 (35.3-44.9) % Plt Count 321 (140-400) K/mcL BMP 05/05/19 01:18 Sodium 139 Potassium 4.1 D Chloride 95 L Carbon Dioxide 38 H BUN 23 Creatinine 1.04 Glucose 163 H Calcium 8.6 Liver Function 05/05/19 Range/Units 01:18 Total Bilirubin 0.7 (0.3-1.0) mg/dL Direct Bilirubin 0.1 (0.0-0.2) mg/dL AST 17 (13-39) Units/L ALT 30 (7-52) Units/L Alkaline Phosphatase 78 (34-104) Units/L Albumin 3.6 (3.5-5.7) g/dL Consult Discharge Plan - Plan Referrals: Kingsley Bee MD [Partnered Physician] - 05/22/19 2:45 pm Guy Nagel MD [Primary Care Provider] - 05/11/19 1:30 pm Joel Seaman MD [Partnered Physician] - 06/09/19 1:00 pm (2) Congestive heart failure Qualifiers: Heart failure type: diastolic Heart failure chronicity: chronic Qualified Code(s): I50.32 - Chronic diastolic (congestive) heart failure (3) Atrial fibrillation Qualifiers: Atrial fibrillation type: unspecified Qualified Code(s): I48.91 - Unspecified atrial fibrillation (4) Pulmonary embolism Qualifiers: Pulmonary embolism type: other Chronicity: acute Acute cor pulmonale presence: without acute cor pulmonale Qualified Code(s): I26.99 - Other pulmonary embolism without acute cor pulmonale (5) COPD (chronic obstructive pulmonary disease) Qualifiers: COPD type: unspecified COPD Qualified Code(s): J44.9 - Chronic obstructive pulmonary disease, unspecified (6) Diabetes Qualifiers: Diabetes mellitus type: type 2 Diabetes mellitus intermediate school teacher insulin use: without half-way use Diabetes mellitus complication status: without complication Qualified Code(s): E11.9 - Type 2 diabetes mellitus without complications (7) Hypertension Qualifiers: Hypertension type: essential hypertension Qualified Code(s): I10 - Essential (primary) hypertension
[2019-05-05] MEDS: Insulin LISPRO 300 UNITS/3 ML VIAL SQ SCH ×4 (08:50→20:04)
[2019-05-05] MEDS: predniSONE 20 MG TABLET PO SCH (08:51)
[2019-05-05] MEDS: Apixaban 5 MG TABLET PO SCH ×2 (08:51→20:04)
[2019-05-05] MEDS: Furosemide 40 MG/4 ML VIAL IVP SCH ×2 (08:51→20:00)
[2019-05-05] MEDS: Metoprolol XL (24 HR) Succ 50 MG TAB.ER.24H PO SCH (08:51)
[2019-05-05] MEDS: Diltiazem CD (24hr) 180 MG CAPSULE PO SCH (08:52)
[2019-05-05] MEDS: Amiodarone Premix 360 MG/200 ML BAG IVC SCH (08:56)
[2019-05-05] MEDS ORDERED: Lidocaine Viscous Oral Soln 15 ML SOLUTION MM PRN (10:20)
[2019-05-05] MEDS ORDERED: *HR* Midazolam HCl 2 MG/2 ML VIAL IVP PRN (10:21)
[2019-05-05] MEDS ORDERED: 0.9 % Sodium Chloride 500 ML IVC ONE (10:21)
[2019-05-05] MEDS ORDERED: *HR* Midazolam HCl 5 MG/5 ML VIAL IVP ONE ×2 (11:01)
[2019-05-05] MEDS: *HR* FentaNYL (PF) 100 MCG/2 ML VIAL IVP PRN ×3 (11:25→11:45)
--- NOTE | 2019-05-05 12:54 | Electrocardiograph Report ---
[email or web address] Test Date: 2019-05-05 Pat Name: Dalia Coronado Department: 110 Room: 2N11 Gender: F Pharmacist: Seferino : 1940 Requested By: Wade Hinson Order Number: [id number] Reading MD: Candelario Montalvo Measurements Intervals [place] Rate: 101 P: MT: 0 QRS: -19 QRSD: 89 T: -3 QT: 376 QTc: 434 Interpretive Statements ATRIAL FLUTTER/TACHYCARDIA WITH RAPID VENTRICULAR RESPONSE MODERATE VOLTAGE CRITERIA FOR LVH, CONSIDER NORMAL VARIANT [MEETS CRITERIA IN ONE OF: R(aVL), S(V1), R(V5), R(V5/V6)+S(V1)] MODERATE ST DEPRESSION [0.05+ mV ST DEPRESSION] Electronically Signed On 05-05-2019 12:53:16 EDT by Candelario Montalvo
--- NOTE | 2019-05-05 13:38 | Cardiology Progress Note ---
<Clark Drake - Last Filed: 05/05/19 13:38> Date of Encounter: 05/05/19 Time of Encounter: 13:36 Assessment and Plan (1) Atrial fibrillation with rapid ventricular response Current Visit: No Status: Resolved - Initially presented with elevated HR; found to have atrial flutter with RVR with a 2:1 pattern - Had recent admission from 04/26-05/01, during which she was treated for A. fib with RVR, CHF exacerbation, and PE - Was discharged on Cardizem, metoprolol, Lasix, and Eliquis; reports compliance with all medications - She was given several boluses of Cardizem in the ED and was started on Cardizem drip; subsequently switched to amiodarone drip after cardizem drip did not bring down heart rate - Earlier this morning, patient was successfully cardioverted to normal sinus rhythm - Last heart rate per chart review was 65 bpm - She remains asymptomatic Plan - Patient should be discharged on Lasix 40 mg PO BID - Decreased patients home Cardizem dose to 180 mg daily - Cardiology will sign off; patient should follow up with Dr. Chu in the outpatient setting within 2 weeks after discharge (2) Heart failure with preserved ejection fraction Current Visit: Yes Status: Acute - Known history of diastolic heart failure - TTE 04/27/19: EF 50-55% with indeterminate diastolic function - Presented with signs of volume overload: b/l LE edema, vascular congestion on CXR, crackles on auscultation - Total fluid balance since admission is -2182.3 - Patient normally takes 40 mg of Lasix PO daily at home; this will be increased to Lasix 40 mg PO BID Qualifiers: Qualified Code(s): I50.30 - Unspecified diastolic (congestive) heart failure (3) Pulmonary embolism Current Visit: No Status: Chronic - CT chest previous admission: 04/26/19: small nonocclusive emboli in right upper and left lower lobes - Discharged on Eliquis Plan: - Continuous O2 monitoring - 2L O2 via nasal canula - Continue eliquis Qualifiers: Pulmonary embolism type: other Chronicity: acute Acute cor pulmonale presence: without acute cor pulmonale Qualified Code(s): I26.99 - Other pulm onary embolism without acute cor pulmonale (4) Diabetes Current Visit: Yes Status: Chronic - Management per primary team Qualifiers: Diabetes mellitus type: type 2 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 All questions were answered. Thank you for involving us in the care of your patient. Please call with any questions. Subjective Interval history: Patient seen and examined at bedside early this morning; no complaints today. Patient was still tachycardic, with a heart rate between 105 and 115 bpm. She has been asymptomatic during her hospitalization. She has not had any chest pain, palpitations, dizziness, visual disturbances, or diaphoresis. After my interview with patient, she was successfully cardioverted to normal sinus rhythm, with her last heart rate being 65 bpm. Patient should be discharged on Lasix 40 mg PO BID, and her Cardizem will be decreased to 180 mg PO daily. Cardiology will sign off at this time. Patient should follow-up in the outpatient setting with Dr. Chu within 2 weeks after discharge. Objective Vital Signs, Last 4 Hours Temp Pulse Resp BP Pulse Ox 05/05/19 12:48 65 18 111/62 93 05/05/19 10:59 97.8 F 115 18 126/80 92 05/05/19 10:20 18 92 Other: General: Conversant, No Apparent Distress HEENT: Atraumatic, Normocephaly, Mucus Membranes Moist Cardiac: Reg Rate and Rhythm, Normal S1 and S2, No Murmur Lungs: Other (Diminished breath sounds b/l, bibasilar crackles) Neuro: Alert and responsive, No focal deficits noted Skin: No rashes noted on visualized skin Extremities: Other (+2 pitting edema in the lower extremities b/l) Results 05/05/19 01:18 05/05/19 01:18 Lab Results 05/05/19 05/05/19 01:18 01:18 WBC 13.6 H Hgb 12.3 Hct 40.2 Plt Count 321 Sodium 139 Potassium 4.1 D Chloride 95 L Carbon Dioxide 38 H BUN 23 Creatinine 1.04 Glucose 163 H Calcium 8.6 Total Bilirubin 0.7 AST 17 ALT 30 Alkaline Phosphatase 78 TSH 2.382 Consult Discharge Plan - Plan Referrals: Kingsley Bee MD [Partnered Physician] - 05/22/19 2:45 pm Guy Nagel MD [Primary Care Provider] - 05/11/19 1:30 pm Joel Seaman MD [Partnered Physician] - 06/09/19 1:00 pm <Simeon Chu - Last Filed: 05/05/19 15:15> Date of Encounter: 05/05/19 Assessment and Plan Discussion w patient/family: The assessment and plan as outlined above was discussed with the patient and/or family members who expressed understanding and agreement. All questions were answered. Thank you for involving us in the care of your patient. Please call with any questions. Objective Vital Signs, Last 4 Hours Pulse Resp BP Pulse Ox 05/05/19 12:48 65 18 111/62 93 Results 05/05/19 01:18 05/05/19 01:18 Lab Results 05/05/19 05/05/19 01:18 01:18 WBC 13.6 H Hgb 12.3 Hct 40.2 Plt Count 321 Sodium 139 Potassium 4.1 D Chloride 95 L Carbon Dioxide 38 H BUN 23 Creatinine 1.04 Glucose 163 H Calcium 8.6 Total Bilirubin 0.7 AST 17 ALT 30 Alkaline Phosphatase 78 TSH 2.382 - Attending Attestation I have personally performed a face to face evaluation on this patient. I have reviewed and agree with the documented findings and care plan as documented by the resident. History and Exam by me shows: Status post CLAY cardioversion successfully converted to sinus rhythm. Continue Cardizem 180 mg daily, Eliquis 5 mg twice a day, and Lasix orally 40 mg twice a day. Follow up as outpatient Thanks for the consult, please call with questions. Simeon Chu MD [facility]
[2019-05-05] MEDS: Insulin DETEMIR 100 UNIT/ML X5UNITS SQ SCH (20:12)
[2019-05-06] MEDS: Levalbuterol Neb 0.63 MG/3 ML IH SCH ×4 (03:33→20:00)
[2019-05-06] MEDS: Insulin LISPRO 300 UNITS/3 ML VIAL SQ SCH ×4 (07:45→20:21)
[2019-05-06 08:06] LABS: Basophils % 0.1 %; Eosinophils # 0.1 K/mcL (0.0-0.6); Eosinophils % 0.7 %; Hematocrit 40.1 % (35.3-44.9); Hemoglobin 12.2 g/dL (11.5-15.4); Immature Granulocytes % 0.8 % (0-4); Lymphocytes # 1.1 K/mcL (0.6-4.6); Lymphocytes % 8.5 %; Mean Corpuscular HGB Conc 30.4 g/dL (31.6-35.5); Mean Corpuscular Hemoglobin 28.8 pg (28.0-33.3); Mean Corpuscular Volume 94.8 fL (83.0-100.0); Mean Platelet Volume 10.1 fL (9.4-12.4); Monocytes % 7.8 %; Neutrophils # 10.9 K/mcL (1.6-8.9); Platelet Count 327 K/mcL (140-400); Red Blood Count 4.23 M/mcL (3.82-4.97); Red Cell Distribution Width 15.1 % (11.5-14.5); Segmented Neutrophils % 82.1 %; White Blood Count 13.3 K/mcL (4.3-11.1)
[2019-05-06 08:29] LABS: BUN/Creatinine Ratio 26 (6-26); Blood Urea Nitrogen 20 mg/dL (8-23); Calcium 9.2 mg/dL (8.6-10.3); Carbon Dioxide 37 mEq/L (23-29); Chloride 93 mEq/L (98-107); Glucose 135 mg/dL (70-105); Osmolality,Calculated 295 (280-300); Potassium 3.3 mEq/L (3.5-5.1); Sodium 140 mEq/L (136-145); eGFR For African Americans > 60 (> 60); eGFR For Non-African Americans > 60 (> 60)
[2019-05-06] MEDS: Diltiazem CD (24hr) 180 MG CAPSULE PO SCH (09:46)
[2019-05-06] MEDS: predniSONE 20 MG TABLET PO SCH (09:47)
[2019-05-06] MEDS: Metoprolol XL (24 HR) Succ 50 MG TAB.ER.24H PO SCH (09:47)
[2019-05-06] MEDS: Apixaban 5 MG TABLET PO SCH ×2 (09:47→20:20)
[2019-05-06] MEDS: Furosemide 40 MG/4 ML VIAL IVP SCH ×2 (09:47→20:22)
--- NOTE | 2019-05-06 10:51 | Internal Med Progress Note ---
Hospitalist Progress Note - Encounter Date of Encounter: 05/06/19 Time of Encounter: 10:47 - Subjective Interval History: Ms. Coronado was seen at bedside this morning. Her vitals were reviewed and remained afebrile and normotensive overnight. She reports that she is feeling much better than she did at presentation. She is tolerating her diet. Denies any heart palpitations. Additionally denies chest pain, shortness of breath, nausea, emesis, fever or chills. - Exam Vitals: Temp Pulse Resp BP Pulse Ox 98.4 F 67 16 135/59 91 05/06/19 07:30 05/06/19 07:30 05/06/19 07:30 05/06/19 07:30 05/06/19 07:30 Exam: Gen: Vitals noted. No acute distress. Appears comfortable. Eyes: anicteric sclerae, moist conjunctivae; no lid-lag HENT: Atraumatic; oropharynx clear with moist mucous membranes and no mucosal ulcerations Cardiac: RRR, no murmur, +S1/S2. No JVD noted. Pulmonary: CTA bilaterally, no wheezes, rales or rhonchi, equal chest expansion Abdomen: soft, nontender, no guarding. No masses or hepatosplenomegaly Extremities: Nontender calf, +2 pitting edema bilateral lower extremity Skin: Normal temperature, turgor; no ulcers or subcutaneous nodules Neuro: moves all extremities, no focal deficits. Psych: Appropriate mood and behavior. A&Ox3 - Assessment and Plan (1) Atrial fibrillation with rapid ventricular response Current Visit: No Status: Resolved Assessment and Plan: Presented with atrial flare versus atrial fib with RVR. - HR at 153 on admission, was asymptomatic - Recent admission for CHF exacerbation and Afib - Successfully cardioverted to normal sinus rhythm on 05/05/19 Plan: - Cardiology consult - PO Cardezim 180 daily - Toprol 150 daily - Continue home Cardiac medications - Continuous cardiac monitoring - Continue diuresis Lasix IV 40 BID - Continue home Eliquis (2) Heart failure with preserved ejection fraction Current Visit: Yes Status: Acute Assessment and Plan: Known history of diastolic heart failure - Echo 04/27/19: LVEF 50-55%. Indeterminate diastolic dysfunction - BL lower extremity edema - Chest x-ray on 05/03/19: mild pulmonary vascular congestion - Shortness of breath improved today Plan: - Lasix IV 40 BID - Home metoprolol XL 150 daily - Continue to monitor - At discharge will require Lasix 40 mg twice a day PO (3) Pulmonary embolism Current Visit: No Status: Chronic Assessment and Plan: Pulmonary embolism - CT chest previous admission: 04/26/19: small nonocclusive emboli in right upper and left lower lobes - Discharged on Eliquis Plan: - Continue eliquis (4) Hypertension Current Visit: Yes Status: Chronic Assessment and Plan: Hx of HTN, blood pressure 135/59 this morning - Continue to monitor - on Metoprolol, cardizem (5) Diabetes Current Visit: Yes Status: Chronic Assessment and Plan: Hx of DM - A1C 7.1 on 04/26/19 - On metformin at home - Glucose 135 this morning Plan: - Monitor baljx-hu-llno glucose - SSI for correction and 5 units Detemir HS - Diabetic diet (6) COPD (chronic obstructive pulmonary disease) Current Visit: Yes Status: Acute Assessment and Plan: Recent COPD exacerbation appears to be improving - Former heavy smoker - BL wheezing - SOB on exertion - Responded to inhaled Bronchodilators and steroids on previous admission Plan: - Discontinue supplemental oxygen - Prednisone 40 for 5 days Last Dose 05/07/19 - Xopenex q6h (7) Indeterminate pulmonary nodules Current Visit: No Status: Chronic Assessment and Plan: CTA chest on 04/26/19 showed 9 mm indeterminate left upper lobe pulmonary nodule as well as 2 cm low-density right lower lobe nodule and 2 cm right adrenal gland nodule. Should consider outpatient follow-up upon resolution of symptoms. DVT Prophylaxis: On Eliquis - Time Spent with Patient Total time spent is greater than 50% in coordination of care (as documented) at patient's floor/unit and/or counseling patient: Internal Medicine: Result - Labs CBC & Chem 7: 05/06/19 07:27 05/06/19 07:27 Labs: Short CBC 05/06/19 Range/Units 07: WBC 13.3 H (4.3-11.1) K/mcL Hgb 12.2 (11.5-15.4) g/dL Hct 40.1 (35.3-44.9) % Plt Count 327 (140-400) K/mcL Neutrophils # 10.9 H (1.6-8.9) K/mcL BMP 05/06/19 07:27 Sodium 140 Potassium 3.3 L Chloride 93 L Carbon Dioxide 37 H BUN 20 Creatinine 0.77 Glucose 135 H Calcium 9.2 - Impressions Impressions Transesophageal w/Cardioversion 05/05/19 08:53 Impressions: No LA or DUYEN thrombus. Successful synchronized direct current cardioversion of atrial fibrillation/flutter. LVEF 50-55 % Normal right ventricle size and systolic function. Mild-moderate biatrial dilatation. Moderate mitral regurgitation. Left Ventricular Wall Motion: Transesophageal Echo Findings All wall segments showed normal motion. Medication Given: Time Medication Dose Units Route 11:25 Versed 2 mg IV 11:25 Fentanyl 50 mcg IV 11:30 Fentanyl 25 mcg IV 11:45 Versed 2 mg IV 11:45 Fentanyl 25 mcg IV Findings: Study Quality * Technically adequate exam. ECG Findings * Atrial flutter/fib RVR. Left Ventricle * LVEF 50-55 % * Normal LV size and systolic function. * There is no LV thrombus. Right Ventricle * Normal right ventricle size and systolic function. Left Atrium * Moderately dilated. * No thrombus present. * LA appendage is normal in appearance. Right Atrium * RA is Mildly dilated. Interatrial Septum * The thickening of interatrial septum suggested lipomatous hypertrophy. No shunt on color Doppler. Aortic Valve * Normal structure and function. Mitral Valve * Normal structure. * Moderate mitral regurgitation. * No mitral stenosis. Tricuspid Valve * Normal structure and function. * trivial/trace tricuspid regurgitation. Pulmonic Valve * Normal structure and function. * No pulmonic regurgitation. Aorta * The aortic root is not dilated. * Scattered grade 3 atheroma in aortic arch. Pericardium * No pericardial effusion. Pulmonary Artery * Normal pulmonary artery. Pulmonary Veins * Normal pulmonary veins. Procedure Summary: After explaining the risks, benefits, and alternatives of the procedure to the patient in detail and answering all questions to satisfaction, an informed consent was obtained in writing. The patient was NPO for the six hours prior to the procedure. The patient denied dysphagia, odynophagia, and loose teeth. The patient was monitored with periodic automated blood pressures and continuous pulse oximetry and telemetry. Continuous oxygen was administered by [place]. The patient was placed in the full upright position and the posterior oropharynx was anesthetized as above and complete suppression of the gag reflex was obtained. The patient was then placed in the left lateral decubitus position, the neck was flexed, and a bite block was placed in the patient's mouth. IV sedation was administered. Once adequate sedation was achieved, a well-lubricated anteflexed multipoint intraesophageal echocardiographic probe was inserted into the midline posterior oropharynx. Gentle pressure was applied as the patient swallowed and the esophagus was intubated without difficulty. The scope was advanced to the mid esophagus without encountering resistance. Images were obtained from the mid and upper esophagus. Images from the gastric globe were obtained. The intra-atrial septum was assessed by color-flow Doppler and agitated saline. The scope was then rotated approximately 180 degrees and withdrawn, visualizing the length of the aorta. The scope was then slowly withdrawn as the patient was continually suctioned. The patient tolerated the procedure well. Following informed consent , the patient was sedated with fentaynl and versed. After adequate sedation was achieved, cardioversion in the AP approach was successful using 50 Joules of biphasic energy. Normal sinus rhythm was restored after 1 attempt(s). The patient was monitored for the standard 30 minutes post procedure. Complications: None History: Hypertension Diabetes Previous Echo 04/27/2019 BP 126 / 80 Updated by Wade Hinson MD on 05/05/2019 1:51:19 PM electronically signed on 05/05/2019 1:53:43 PM with status of Final Wall Motion Angelo: 1=Normal, 2=Hypokinesis, 3=Akinesis, 4=Dyskinesis, 5=Aneurysmal, 6=Hyperkinetic, X=Not Visualized (Blank)=Missing Wall MotionIndex CLAY Total of all scored ruelas 17 Index Divided by ---- = 1 Total number of ruelas scored 17 Consult Discharge Plan - Plan Referrals: Kingsley Bee MD [Partnered Physician] - 05/22/19 2:45 pm Guy Nagel MD [Primary Care Provider] - 05/11/19 1:30 pm Joel Seaman MD [Partnered Physician] - 06/09/19 1:00 pm (2) Heart failure with preserved ejection fraction Qualifiers: Heart failure chronicity: acute on chronic Qualified Code(s): I50.33 - Acute on chronic diastolic (congestive) heart failure (3) Pulmonary embolism Qualifiers: Pulmonary embolism type: other Chronicity: acute Acute cor pulmonale presence: without acute cor pulmonale Qualified Code(s): I26.99 - Other pulmonary embolism without acute cor pulmonale (4) Hypertension Qualifiers: Hypertension type: essential hypertension Qualified Code(s): I10 - Essential (primary) hypertension (5) Diabetes Qualifiers: Diabetes mellitus type: type 2 Diabetes mellitus intermediate insulin use: without termite exterminator use Diabetes mellitus complication status: without complication Qualified Code(s): E11.9 - Type 2 diabetes mellitus without complications (6) COPD (chronic obstructive pulmonary disease) Qualifiers: COPD type: unspecified COPD Qualified Code(s): J44.9 - Chronic obstructive pulmonary disease, unspecified
[2019-05-06] MEDS: Insulin DETEMIR 100 UNIT/ML X5UNITS SQ SCH (20:22)
[2019-05-07] MEDS: Levalbuterol Neb 0.63 MG/3 ML IH SCH ×3 (03:41→15:41)
[2019-05-07] MEDS: Metoprolol XL (24 HR) Succ 50 MG TAB.ER.24H PO SCH (07:59)
[2019-05-07] MEDS: Diltiazem CD (24hr) 180 MG CAPSULE PO SCH (08:00)
[2019-05-07] MEDS: Apixaban 5 MG TABLET PO SCH (08:00)
[2019-05-07] MEDS: Furosemide 40 MG/4 ML VIAL IVP SCH (08:00)
[2019-05-07] MEDS: predniSONE 20 MG TABLET PO SCH (08:00)
[2019-05-07] MEDS: Insulin LISPRO 300 UNITS/3 ML VIAL SQ SCH ×2 (08:03→12:04)
[2019-05-07 08:51] LABS: Hematocrit 40.7 % (35.3-44.9); Hemoglobin 12.3 g/dL (11.5-15.4); Mean Corpuscular HGB Conc 30.2 g/dL (31.6-35.5); Mean Corpuscular Hemoglobin 29.1 pg (28.0-33.3); Mean Corpuscular Volume 96.2 fL (83.0-100.0); Mean Platelet Volume 10.7 fL (9.4-12.4); Platelet Count 230 K/mcL (140-400); Red Blood Count 4.23 M/mcL (3.82-4.97); White Blood Count 11.5 K/mcL (4.3-11.1)
[2019-05-07 09:57] LABS: BUN/Creatinine Ratio 29 (6-26); Blood Urea Nitrogen 23 mg/dL (8-23); Calcium 8.8 mg/dL (8.6-10.3); Carbon Dioxide 27 mEq/L (23-29); Chloride 96 mEq/L (98-107); Glucose 129 mg/dL (70-105); Osmolality,Calculated 293 (280-300); Potassium 3.9 mEq/L (3.5-5.1); Sodium 139 mEq/L (136-145); eGFR For African Americans > 60 (> 60); eGFR For Non-African Americans > 60 (> 60)
--- NOTE | 2019-05-07 14:11 | Discharge Summary ---
- NOTES TO OUTPATIENT PROVIDER Notes to Outpatient Provider: Ms. Coronado presented to the ED with asymptomatically tachycardia. Cardioverted from A. fib and RVR to sinus rhythm. Increased Lasix to 40 mg twice a day. Cardizem dose decreased to 180 mg daily. Should continue her home dose of metoprolol. Recommend outpatient ophthalmologic exam given she was on amiodarone for short-term. And repeat thyroid function in one month. Recommend recheck BMP in 1 week. Date of Encounter: 05/07/19 Time of Encounter: 08:15 - Discharge Diagnosis (1) Atrial fibrillation with rapid ventricular response Priority: Primary Status: Resolved (2) Heart failure with preserved ejection fraction Priority: Secondary Status: Chronic Qualifiers: Heart failure chronicity: acute on chronic Qualified Code(s): I50.33 - Acute on chronic diastolic (congestive) heart failure (3) Pulmonary embolism Priority: Secondary Status: Chronic Qualifiers: Pulmonary embolism type: other Chronicity: acute Acute cor pulmonale presence: without acute cor pulmonale Qualified Code(s): I26.99 - Other pulmonary embolism without acute cor pulmonale (4) Hypertension Priority: Secondary Status: Chronic Qualifiers: Hypertension type: essential hypertension Qualified Code(s): I10 - Essential (primary) hypertension (5) Diabetes Priority: Secondary Status: Chronic Qualifiers: Diabetes mellitus type: type 2 Diabetes mellitus prison insulin use: without superintendent container terminal use Diabetes mellitus complication status: without complication Qualified Code(s): E11.9 - Type 2 diabetes mellitus without complications (6) COPD (chronic obstructive pulmonary disease) Priority: Secondary Status: Acute Qualifiers: COPD type: unspecified COPD Qualified Code(s): J44.9 - Chronic obstructive pulmonary disease, unspecified (7) Indeterminate pulmonary nodules Priority: Secondary Status: Chronic Hospital course: Ms. Coronado is a 78 year old female with past medical history of diabetes, CHF, hypertension, history of atrial fibrillation who presented to the ED on 05/03/19 complaining of elevated heart rate. She was recently discharged from the hospital on 05/01/19 due to acute respiratory failure with hypoxia. She reported that she had no heart palpitation but was checking her heart rate at home and noticed in the 150s subsequently presented to the ED. cardiology was consulted by ED. At presentation the ED her EKG showed show A. flutter with RVR. Chest x-ray showed moderate pulmonary congestion. During this admission she reported ongoing shortness of breath with lower extremity swelling. Her A. fib with RVR was attributed likely secondary to CHF exacerbation. Was started on IV Lasix and fluid restriction diet. Was started on Cardizem drip. The day of her admission she was started on amiodarone drip overnight due to ongoing A. fib with RVR. Cardiology recommended continuing amiodarone drip prior to cardioversion. She underwent cardioversion on 05/05/19 and amiodarone drip was stopped. She has remained in normal sinus rhythm. Additionally was on oral prednisone outpatient and continued during her stay due to suspected COPD exacerbation during previous admission. Will be discharge with prednisone taper and has a follow-up appointment with Dr. Bee on 05/22/19. Was switched to oral Lasix today and had good urinary output thereafter. Because she was on amiodarone recommend following thyroid function test in one month as well as ophthalmologic eye exam. Her oral Cardizem dose has been decreased from 360 mg to 180 daily. Additionally Lasix has been increased from 40 mg daily to 40 mg twice a day. Recommend recheck BMP in 1 week. Discharge discussed with: patient, family - Time Spent with Patient Total time spent providing and/or coordinating discharge services: - Discharge Medications Prescriptions: New predniSONE [PredniSONE] 10 mg PO DAILY 9 Days #18 tablet Continued metFORMIN [Glucophage] 1,000 mg PO BIDWM Apixaban [Eliquis] 5 mg PO BID #60 tablet Metoprolol XL (24 HR) Succ [Toprol Xl] 150 mg PO DAILY #90 tab.er.24h Ipratropium/Albuterol Neb [Duoneb] 3 ml IH Q6HR PRN #180 vial.neb PRN Reason: Shortness Of Breath Changed Diltiazem CD (24hr) [Cardizem CD] 180 mg PO DAILY #60 cap.er.24h Furosemide [Lasix] 40 mg PO BID #30 tablet Discontinued predniSONE [PredniSONE] 40 mg PO DAILY 4 Days #8 tablet cephALEXin [Keflex] 500 mg PO BID 5 Days #10 capsule Home Medications: metFORMIN [Glucophage] 1,000 mg PO BIDWM 04/26/19 [History] Apixaban [Eliquis] 5 mg PO BID #60 tablet 04/28/19 [Rx] Ipratropium/Albuterol Neb [Duoneb] 3 ml IH Q6HR PRN #180 vial.neb 05/01/19 [Rx] Metoprolol XL (24 HR) Succ [Toprol Xl] 150 mg PO DAILY #90 tab.er.24h 05/01/19 [Rx] Diltiazem CD (24hr) [Cardizem CD] 180 mg PO DAILY #60 cap.er.24h 05/07/19 [Rx] Furosemide [Lasix] 40 mg PO BID #30 tablet 05/07/19 [Rx] predniSONE [PredniSONE] 10 mg PO DAILY 9 Days #18 tablet 05/07/19 [Rx] Allergies/Adverse Reactions: Allergy/AdvReac Type Severity Reaction Status Date / Time No Known Allergies Allergy Verified 04/26/19 15:22 Date of admission: 05/04/19 18:02 Primary care physician: Guy Nagel MD Consults: 05/03/19 17:26 Consult to Cardiology [CONS] Stat Comment: Consulting Provider: Cardiology Marium Reason for Consult: aflutter w rvr Call Completed: Yes 05/04/19 09:49 Consult to Nurse Navigator [CONS] Routine Comment: CHF Discharging clinician: Karma More Anticipated date of discharge: 05/07/19 - Constitutional Vitals: Temp Pulse Resp BP Pulse Ox 98.5 F 59 17 138/85 91 05/07/19 11:39 05/07/19 11:39 05/07/19 11:39 05/07/19 11:39 05/07/19 11:39 Exam: Gen: Vitals noted. No acute distress. Appears comfortable. Eyes: anicteric sclerae, moist conjunctivae; no lid-lag HENT: Atraumatic; oropharynx clear with moist mucous membranes and no mucosal ulcerations Cardiac: RRR, no murmur, +S1/S2. No JVD noted. Pulmonary: CTA bilaterally, no wheezes, rales or rhonchi, equal chest expansion Abdomen: soft, nontender, no guarding. No masses or hepatosplenomegaly Extremities: Nontender calf, +1 pitting edema bilateral lower extremity Skin: Normal temperature, turgor; no ulcers or subcutaneous nodules Neuro: moves all extremities, no focal deficits. Psych: Appropriate mood and behavior. A&Ox3 - Patient Status Disposition: Home, Self-Care Condition: Fair Overall status at discharge: patient is progressing back to baseline - Discharge Instructions Instructions: Atrial Fibrillation (DC), Atrial Fibrillation (GEN) Follow Up With: Kingsley Bee MD [Partnered Physician] - 05/22/19 2:45 pm Guy Nagel MD [Primary Care Provider] - 05/11/19 1:30 pm Joel Seaman MD [Partnered Physician] - 06/09/19 1:00 pm - Diet and Activity Activity: increase activity as tolerated Diet: low salt diet, other (fluid restriction of 1.5 to 2 liters daily)
[2019-05-07] MEDS ORDERED: Furosemide 40 MG TABLET PO ONE (14:30)
[2019-05-07 15:47] VITALS: BP 138/77
--- NOTE | 2019-05-09 15:32 | Electrocardiograph Report ---
[address] [address] Test Date: 2019-05-05 Pat Name: Dalia Coronado Department: 101 Room: 2A Gender: F Real Estate Asset Manager: : 1940 Requested By: Wade Hinson Order Number: [id number] Reading MD: Joel Seaman Measurements Intervals [place] Rate: 61 P: 36 CA: 181 QRS: -20 QRSD: 89 T: 16 QT: 435 QTc: 438 Interpretive Statements SINUS RHYTHM Electronically Signed On 05-09-2019 15:30:59 EDT by Joel Seaman
== END 2019-05-07 17:21 | disposition home or self-care (01) | DRG 291 ==
LOC: EMEROOARM 15:43 → 2NENU 15:43 → SUATTDRO 17:32 → 2NENU 18:04 → 2NNU 05-04 01:35 → 2ANU 05-05 21:35
PROVIDERS: ADMIT Internal Medicine; ATTEND Internal Medicine

== ENCOUNTER 2019-05-14 18:44 | Observation (INO) ==
--- NOTE | 2019-05-14 19:21 | Emergency Department Note ---
Disposition Clinical Impression: Hypokalemia, Atrial fibrillation with rapid ventricular response UTI (urinary tract infection) Qualifiers: Urinary tract infection type: site unspecified Hematuria presence: with hematuria Qualified Code(s): N39.0 - Urinary tract infection, site not specified; R31.9 - Hematuria, unspecified Disposition: Admitted As Inpatient Condition: Fair Time of Disposition: 22:30 General Adult HPI - General Chief complaint: ED Arrhythmia/Palpitations Stated complaint: HHR,A-Fib Time Seen by Provider: 05/14/19 18:51 Source: patient Limitations: no limitations - History of Present Illness HPI Narrative: 78 yo female with PMH of afib, T2DM, and HTN presenting with Afib with RVR. Pt reports she was sitting in her house earlier when she experienced palpitations without inciting incidence. Pt reports she took her heart rate and upon seeing it was over 100 beats per minute she came to ER. Pt reports she was newly diagnosed with Afib 2 weeks ago by her PCP. Pt reports she underwent cardioversion 1 week ago. Pt denies headahces, changes in vision, SOB, chest pain, N/V/D/C or changes in urination. Pt reports palpitations are still present at time of evaluation. Pt reports leg swelling for the past week that has improved , however, is tender to touch more on the right that the left. No prior history of MT or stroke. Pt reports medication compliance and has taken her evening medications. Pain Scale: 3 - Related Data Home Medications Medication Instructions Recorded Confirmed metFORMIN [Glucophage] 1,000 mg PO BIDWM 04/26/19 05/03/19 Previous Rx's Medication Instructions Recorded Apixaban [Eliquis] 5 mg PO BID #60 tablet 04/28/19 Ipratropium/Albuterol Neb [Duoneb] 3 ml IH Q6HR PRN #180 vial.neb 05/01/19 Metoprolol XL (24 HR) Succ [Toprol 150 mg PO DAILY #90 tab.er.24h 05/01/19 Xl] Diltiazem CD (24hr) [Cardizem CD] 180 mg PO DAILY #60 cap.er.24h 05/07/19 Furosemide [Lasix] 40 mg PO BID #30 tablet 05/07/19 predniSONE [PredniSONE] 10 mg PO DAILY 9 Days #18 tablet 05/07/19 Allergies Allergy/AdvReac Type Severity Reaction Status Date / Time No Known Allergies Allergy Verified 04/26/19 15:22 Review of Systems: As Per HPI Past Medical History - Past Medical History Medical history: Reports: atrial fibrillation, cancer, diabetes, hypertension Surgical history: Reports: cholecystectomy, hysterectomy Psychiatric history: Reports: no psych history - Social History Smoking Status: Former smoker Smokeless Tobacco Status: No Alcohol use: Reports: none Drug use: Reports: none Physical Exam - General Limitations: no limitations General appearance: alert, in no apparent distress - Head Head exam: atraumatic, normocephalic - Eye Eye exam: Present: normal appearance - Chest Chest inspection: Present: normal inspection. Absent: tenderness - Respiratory Respiratory exam: Present: normal lung sounds bilaterally. Absent: wheezes, stridor, accessory muscle use - Cardiovascular Cardiovascular exam: Present: tachycardia, irregular rhythm, normal heart sounds - Abdominal Exam Abdominal exam: Present: soft, Non-Tender, normal bowel sounds - Expanded Lower Extremity Exam Upper leg exam: Present: normal inspection Knee exam: Present: normal inspection Lower leg exam: Present: tenderness, swelling. Absent: Homans' sign Foot/toe exam: Present: swelling - Skin Skin exam: Present: warm, dry, intact, normal color Course Vital Signs Temperature 97.9 F 05/14/19 18:50 Pulse Rate 144 05/14/19 18:50 Respiratory Rate 18 05/14/19 18:50 Blood Pressure 146/75 05/14/19 18:50 O2 Sat by Pulse Oximetry 95 05/14/19 18:50 Temperature 97.9 F 05/14/19 18:50 Pulse Rate 141 05/14/19 20:50 Respiratory Rate 18 05/14/19 20:50 Blood Pressure 126/94 05/14/19 20:50 O2 Sat by Pulse Oximetry 92 05/14/19 20:50 Oxygen Delivery Oxygen Delivery Room Air Medical Decision Making - [facility] Narrative Medical decision making narrative: 78 yo female with PMH of afib, T2DM, and HTN presenting with Afib with RVR. Pt reports she was sitting in her house earlier when she experienced palpitations without inciting incidence. Pt reports she took her heart rate and upon seeing it was over 100 beats per minute she came to ER. Pt reports she was newly diagnosed with Afib 2 weeks ago by her PCP. Pt reports she underwent cardioversion 1 week ago. Pt denies headahces, changes in vision, SOB, chest pain, N/V/D/C or changes in urination. Pt reports palpitations are still present at time of evaluation. Pt reports leg swelling for the past week that has improved , however, is tender to touch more on the right that the left. No prior history of MT or stroke. Pt reports medication compliance and has taken her evening medications. Upon initial examination due to irregular tachycardic heart rate on auscultation an EKG was ordered which showed A Fib/Flutter rhythm patterns. Chest xray showed stable cardiomegaly. Interval improvement in pulmonary edema and right basilar opacity compatible atelectasis and/or infiltrate. CBC showed leukocytosis. Coags showed elevated PT. BMP showed hypokalemia. BNP was elevated. UA showed moderate blood and leukocyte esterase. Pt was given Rocephin for UTI and possible pneumonia, Diltiazem for the AFib/Flutter, and Potassium Chloride for the hypokalemia and will be admitted to the floor. - Lab Data Result diagrams: 05/14/19 19:05 05/14/19 19:05 Lab Results 05/14/19 05/14/19 05/14/19 Range/Units 19:05 19:05 19:05 WBC 16.6 H (4.3-11.1) K/mcL RBC 5.15 H (3.82-4.97) M/mcL Hgb 14.8 (11.5-15.4) g/dL Hct 46.8 H (35.3-44.9) % MCV 90.9 (83.0-100.0) fL MCH 28.7 (28.0-33.3) pg MCHC 31.6 (31.6-35.5) g/dL RDW 14.6 H (11.5-14.5) % Plt Count 365 (140-400) K/mcL MPV 10.6 (9.4-12.4) fL Immature Gran % 1.0 (0-4) % Seg Neutrophils % 82.6 % Lymphocytes % 9.5 % Monocytes % 6.3 % Eosinophils % 0.4 % Basophils % 0.2 % Neutrophils # 13.7 H (1.6-8.9) K/mcL Lymphocytes # 1.6 (0.6-4.6) K/mcL Monocytes # 1.1 (0.0-1.3) K/mcL Eosinophils # 0.1 (0.0-0.6) K/mcL Basophils # 0.0 (0.0-0.2) K/mcL PT 16.5 H (9.4-12.1) Seconds INR 1.5 APTT 31.9 (26.0-36.0) Seconds Sodium 136 (136-145) mEq/L Potassium 3.1 L (3.5-5.1) mEq/L Chloride 95 L (98-107) mEq/L Carbon Dioxide 29 (23-29) mEq/L BUN 26 H (8-23) mg/dL Creatinine 0.93 (0.60-1.20) mg/dL Est GFR ( Amer) > 60 (> 60) Est GFR (Non-Af Amer) 59 L (> 60) BUN/Creatinine Ratio 28 H (6-26) Glucose 220 H (70-105) mg/dL Calculated Osmolality 294 (280-300) Calcium 9.3 (8.6-10.3) mg/dL Magnesium 1.7 (1.6-2.6) mg/dL Troponin I < 0.03 (< 0.04) ng/mL B-Natriuretic Peptide (Less than 100) pg/mL TSH 2.735 (0.340-5.600) mcIU/mL Urine Color (Yellow) Urine Clarity (Clear) Urine pH (5.0-8.0) pH Units Ur Specific [place] (1.010-1.025) Urine Protein (Neg-Trace) mg/dL Urine Glucose (UA) (Normal) mg/dL Urine Ketones (Negative) mg/dL Urine Blood (Negative) Urine Nitrite (Negative) Urine Bilirubin (Negative) Urine Urobilinogen (Normal) mg/dL Ur Leukocyte Esterase (Negative) Urine Microscopic RBC (0-3) per hpf Urine Microscopic WBC (0-3) per hpf Ur Squamous Epith Cells (None-Few) per lpf Urine Bacteria (None-Few) per hpf Hyaline Casts (None-Few) per lpf Urine Yeast (None Seen) per hpf Ur Culture Indicated? (NO) 05/14/19 05/14/19 Range/Units 19:05 20:38 WBC (4.3-11.1) K/mcL RBC (3.82-4.97) M/mcL Hgb (11.5-15.4) g/dL Hct (35.3-44.9) % MCV (83.0-100.0) fL MCH (28.0-33.3) pg MCHC (31.6-35.5) g/dL RDW (11.5-14.5) % Plt Count (140-400) K/mcL MPV (9.4-12.4) fL Immature Gran % (0-4) % Seg Neutrophils % % Lymphocytes % % Monocytes % % Eosinophils % % Basophils % % Neutrophils # (1.6-8.9) K/mcL Lymphocytes # (0.6-4.6) K/mcL Monocytes # (0.0-1.3) K/mcL Eosinophils # (0.0-0.6) K/mcL Basophils # (0.0-0.2) K/mcL PT (9.4-12.1) Seconds INR APTT (26.0-36.0) Seconds Sodium (136-145) mEq/L Potassium (3.5-5.1) mEq/L Chloride (98-107) mEq/L Carbon Dioxide (23-29) mEq/L BUN (8-23) mg/dL Creatinine (0.60-1.20) mg/dL Est GFR ( Amer) (> 60) Est GFR (Non-Af Amer) (> 60) BUN/Creatinine Ratio (6-26) Glucose (70-105) mg/dL Calculated Osmolality (280-300) Calcium (8.6-10.3) mg/dL Magnesium (1.6-2.6) mg/dL Troponin I (< 0.04) ng/mL B-Natriuretic Peptide 156 H (Less than 100) pg/mL TSH (0.340-5.600) mcIU/mL Urine Color Yellow (Yellow) Urine Clarity Cloudy A (Clear) Urine pH 6.0 (5.0-8.0) pH Units Ur Specific [place] 1.023 (1.010-1.025) Urine Protein Negative (Neg-Trace) mg/dL Urine Glucose (UA) >=1000 H (Normal) mg/dL Urine Ketones Negative (Negative) mg/dL Urine Blood Moderate H (Negative) Urine Nitrite Negative (Negative) Urine Bilirubin Negative (Negative) Urine Urobilinogen Normal (Normal) mg/dL Ur Leukocyte Esterase Moderate H (Negative) Urine Microscopic RBC 15-30 H (0-3) per hpf Urine Microscopic WBC TNTC H (0-3) per hpf Ur Squamous Epith Cells Many H (None-Few) per lpf Urine Bacteria None Seen (None-Few) per hpf Hyaline Casts None Seen (None-Few) per lpf Urine Yeast Many H (None Seen) per hpf Ur Culture Indicated? YES A (NO)
[2019-05-14 19:24] LABS: Basophils % 0.2 %; Eosinophils # 0.1 K/mcL (0.0-0.6); Eosinophils % 0.4 %; Hematocrit 46.8 % (35.3-44.9); Hemoglobin 14.8 g/dL (11.5-15.4); Lymphocytes # 1.6 K/mcL (0.6-4.6); Lymphocytes % 9.5 %; Mean Corpuscular HGB Conc 31.6 g/dL (31.6-35.5); Mean Corpuscular Hemoglobin 28.7 pg (28.0-33.3); Mean Corpuscular Volume 90.9 fL (83.0-100.0); Mean Platelet Volume 10.6 fL (9.4-12.4); Monocytes # 1.1 K/mcL (0.0-1.3); Monocytes % 6.3 %; Neutrophils # 13.7 K/mcL (1.6-8.9); Platelet Count 365 K/mcL (140-400); Red Blood Count 5.15 M/mcL (3.82-4.97); Red Cell Distribution Width 14.6 % (11.5-14.5); Segmented Neutrophils % 82.6 %; White Blood Count 16.6 K/mcL (4.3-11.1)
[2019-05-14 19:37] LABS: INR 1.5; Prothrombin Time 16.5 Seconds (9.4-12.1)
[2019-05-14 19:40] LABS: Activated Partial Thrombo Time 31.9 Seconds (26.0-36.0)
[2019-05-14 19:43] LABS: BUN/Creatinine Ratio 28 (6-26); Blood Urea Nitrogen 26 mg/dL (8-23); Calcium 9.3 mg/dL (8.6-10.3); Carbon Dioxide 29 mEq/L (23-29); Chloride 95 mEq/L (98-107); Glucose 220 mg/dL (70-105); Magnesium 1.7 mg/dL (1.6-2.6); Osmolality,Calculated 294 (280-300); Potassium 3.1 mEq/L (3.5-5.1); Sodium 136 mEq/L (136-145); eGFR For African Americans > 60 (> 60); eGFR For Non-African Americans 59 (> 60)
[2019-05-14 19:44] LABS: Troponin I < 0.03 ng/mL (< 0.04)
[2019-05-14 19:56] LABS: Thyroid Stimulating Hormone 2.735 mcIU/mL (0.340-5.600)
--- NOTE | 2019-05-14 20:15 | Emergency Department Note ---
Disposition Clinical Impression: Atrial fibrillation with rapid ventricular response Disposition: Admitted As Inpatient Condition: Good Time of Disposition: 22:52 General Adult HPI - General Chief complaint: ED Arrhythmia/Palpitations Stated complaint: HHR,A-Fib Time Seen by Provider: 05/14/19 18:51 Source: patient Limitations: no limitations - History of Present Illness Pain Scale: 3 - Related Data Home Medications Medication Instructions Recorded Confirmed metFORMIN [Glucophage] 1,000 mg PO BIDWM 04/26/19 05/03/19 Previous Rx's Medication Instructions Recorded Apixaban [Eliquis] 5 mg PO BID #60 tablet 04/28/19 Ipratropium/Albuterol Neb [Duoneb] 3 ml IH Q6HR PRN #180 vial.neb 05/01/19 Metoprolol XL (24 HR) Succ [Toprol 150 mg PO DAILY #90 tab.er.24h 05/01/19 Xl] Diltiazem CD (24hr) [Cardizem CD] 180 mg PO DAILY #60 cap.er.24h 05/07/19 Furosemide [Lasix] 40 mg PO BID #30 tablet 05/07/19 predniSONE [PredniSONE] 10 mg PO DAILY 9 Days #18 tablet 05/07/19 Allergies Allergy/AdvReac Type Severity Reaction Status Date / Time No Known Allergies Allergy Verified 04/26/19 15:22 Past Medical History - Past Medical History Medical history: Reports: atrial fibrillation, cancer, diabetes, hypertension Surgical history: Reports: cholecystectomy, hysterectomy Psychiatric history: Reports: no psych history - Social History Smoking Status: Former smoker Smokeless Tobacco Status: No Alcohol use: Reports: none Drug use: Reports: none Physical Exam - General Limitations: no limitations General appearance: alert, in no apparent distress Course Vital Signs Temperature 97.9 F 05/14/19 18:50 Pulse Rate 144 05/14/19 18:50 Respiratory Rate 18 05/14/19 18:50 Blood Pressure 146/75 05/14/19 18:50 O2 Sat by Pulse Oximetry 95 05/14/19 18:50 Temperature 97.9 F 05/14/19 18:50 Pulse Rate 141 05/14/19 20:50 Respiratory Rate 18 05/14/19 20:50 Blood Pressure 126/94 05/14/19 20:50 O2 Sat by Pulse Oximetry 92 05/14/19 20:50 Oxygen Delivery Oxygen Delivery Room Air Medical Decision Making - Lab Data Result diagrams: 05/14/19 19:05 05/14/19 19:05 Lab Results 05/14/19 05/14/19 05/14/19 Range/Units 19:05 19:05 19:05 WBC 16.6 H (4.3-11.1) K/mcL RBC 5.15 H (3.82-4.97) M/mcL Hgb 14.8 (11.5-15.4) g/dL Hct 46.8 H (35.3-44.9) % MCV 90.9 (83.0-100.0) fL MCH 28.7 (28.0-33.3) pg MCHC 31.6 (31.6-35.5) g/dL RDW 14.6 H (11.5-14.5) % Plt Count 365 (140-400) K/mcL MPV 10.6 (9.4-12.4) fL Immature Gran % 1.0 (0-4) % Seg Neutrophils % 82.6 % Lymphocytes % 9.5 % Monocytes % 6.3 % Eosinophils % 0.4 % Basophils % 0.2 % Neutrophils # 13.7 H (1.6-8.9) K/mcL Lymphocytes # 1.6 (0.6-4.6) K/mcL Monocytes # 1.1 (0.0-1.3) K/mcL Eosinophils # 0.1 (0.0-0.6) K/mcL Basophils # 0.0 (0.0-0.2) K/mcL PT 16.5 H (9.4-12.1) Seconds INR 1.5 APTT 31.9 (26.0-36.0) Seconds Sodium 136 (136-145) mEq/L Potassium 3.1 L (3.5-5.1) mEq/L Chloride 95 L (98-107) mEq/L Carbon Dioxide 29 (23-29) mEq/L BUN 26 H (8-23) mg/dL Creatinine 0.93 (0.60-1.20) mg/dL Est GFR ( Amer) > 60 (> 60) Est GFR (Non-Af Amer) 59 L (> 60) BUN/Creatinine Ratio 28 H (6-26) Glucose 220 H (70-105) mg/dL Calculated Osmolality 294 (280-300) Calcium 9.3 (8.6-10.3) mg/dL Magnesium 1.7 (1.6-2.6) mg/dL Troponin I < 0.03 (< 0.04) ng/mL B-Natriuretic Peptide (Less than 100) pg/mL TSH 2.735 (0.340-5.600) mcIU/mL Urine Color (Yellow) Urine Clarity (Clear) Urine pH (5.0-8.0) pH Units Ur Specific [place] (1.010-1.025) Urine Protein (Neg-Trace) mg/dL Urine Glucose (UA) (Normal) mg/dL Urine Ketones (Negative) mg/dL Urine Blood (Negative) Urine Nitrite (Negative) Urine Bilirubin (Negative) Urine Urobilinogen (Normal) mg/dL Ur Leukocyte Esterase (Negative) Urine Microscopic RBC (0-3) per hpf Urine Microscopic WBC (0-3) per hpf Ur Squamous Epith Cells (None-Few) per lpf Urine Bacteria (None-Few) per hpf Hyaline Casts (None-Few) per lpf Urine Yeast (None Seen) per hpf Ur Culture Indicated? (NO) 05/14/19 05/14/19 Range/Units 19:05 20:38 WBC (4.3-11.1) K/mcL RBC (3.82-4.97) M/mcL Hgb (11.5-15.4) g/dL Hct (35.3-44.9) % MCV (83.0-100.0) fL MCH (28.0-33.3) pg MCHC (31.6-35.5) g/dL RDW (11.5-14.5) % Plt Count (140-400) K/mcL MPV (9.4-12.4) fL Immature Gran % (0-4) % Seg Neutrophils % % Lymphocytes % % Monocytes % % Eosinophils % % Basophils % % Neutrophils # (1.6-8.9) K/mcL Lymphocytes # (0.6-4.6) K/mcL Monocytes # (0.0-1.3) K/mcL Eosinophils # (0.0-0.6) K/mcL Basophils # (0.0-0.2) K/mcL PT (9.4-12.1) Seconds INR APTT (26.0-36.0) Seconds Sodium (136-145) mEq/L Potassium (3.5-5.1) mEq/L Chloride (98-107) mEq/L Carbon Dioxide (23-29) mEq/L BUN (8-23) mg/dL Creatinine (0.60-1.20) mg/dL Est GFR ( Amer) (> 60) Est GFR (Non-Af Amer) (> 60) BUN/Creatinine Ratio (6-26) Glucose (70-105) mg/dL Calculated Osmolality (280-300) Calcium (8.6-10.3) mg/dL Magnesium (1.6-2.6) mg/dL Troponin I (< 0.04) ng/mL B-Natriuretic Peptide 156 H (Less than 100) pg/mL TSH (0.340-5.600) mcIU/mL Urine Color Yellow (Yellow) Urine Clarity Cloudy A (Clear) Urine pH 6.0 (5.0-8.0) pH Units Ur Specific [place] 1.023 (1.010-1.025) Urine Protein Negative (Neg-Trace) mg/dL Urine Glucose (UA) >=1000 H (Normal) mg/dL Urine Ketones Negative (Negative) mg/dL Urine Blood Moderate H (Negative) Urine Nitrite Negative (Negative) Urine Bilirubin Negative (Negative) Urine Urobilinogen Normal (Normal) mg/dL Ur Leukocyte Esterase Moderate H (Negative) Urine Microscopic RBC 15-30 H (0-3) per hpf Urine Microscopic WBC TNTC H (0-3) per hpf Ur Squamous Epith Cells Many H (None-Few) per lpf Urine Bacteria None Seen (None-Few) per hpf Hyaline Casts None Seen (None-Few) per lpf Urine Yeast Many H (None Seen) per hpf Ur Culture Indicated? YES A (NO) Attestation Statement - Attestation Attestation: I examined this patient and my medical decision-making was reviewed with the Resident Physician. I agree with the documented findings, disposition and treatment plan as described except to the extent set forth below. Patient's of 8-year-old female that presents to emergency department with chief complaint of atrial fibrillation. Patient reports she has recently been diagnosed with atrial fibrillation actually underwent a 60 and sedation and cardioversion recently. The patient states she popped back in A. fib today and has noticed that her heart rates been beating fast this afternoon. Physical exam patient is awake alert no acute distress heart rate is mildly tachycardic with an irregularly irregular rhythm. Medical decision management the patient will be rate controlled in the emergency Department patiently admitted to the hospitalist service
--- NOTE | 2019-05-14 20:22 | Emergency Department Note ---
Disposition Clinical Impression: Atrial fibrillation with RVR Disposition: Admitted As Inpatient Condition: Good Time of Disposition: 23:02 General Adult HPI - General Chief complaint: ED Arrhythmia/Palpitations Stated complaint: HHR,A-Fib Time Seen by Provider: 05/14/19 18:51 Source: patient Limitations: no limitations Nursing Notes Reviewed: Yes Vital Signs Reviewed: Yes - History of Present Illness HPI Narrative: 78 year-old female presents with palpitations, nausea, and fatigue for 1 hour. She was at home resting when symptoms suddenly started. She was recently discharged from hospitalization 04/29/19 for similar symptoms of palpitations and fatigue. During that hospitalization, she was with Afib RVR and underwent synchronized cardioversion with return to sinus rhythm. She was discharged on [id number] mg daily, metoprolol 50 mg by mouth daily, Eliquis 5 mg by mouth daily and was to follow up with cardiology, but that appointment is not until late May. Her palpitations today are accompanied by headaches, malaise, nausea, dypsnea. She also admits to dysuria for the last few days. Denies any fever, chills, diarrhea, abdominal pain, back pain, hematuria, cough, wheezing. Her lower extremity swelling has improved with Lasix. Previous smoker who quit 15 years ago. Denies alcohol or illicit drug use. Past medical history of diastolic CHF, A. fib RVR, hypertension, diabetes, COPD presents with 1 hour of palpitations, nausea, and fatigue. She is currently on Lasix for diastolic CHF and LE edema, prednisone for COPD. Reports that her blood pressure at home has been controlled. Pt Subjective Complaint: palpitations, nausea Onset (ago): hour(s) (1) Pain Scale: 3 Consistency: constant Improves with: rest Worsens with: movement Associated symptoms: Reports: malaise, nausea/vomiting, shortness of breath - Related Data Home Medications Medication Instructions Recorded Confirmed metFORMIN [Glucophage] 1,000 mg PO BIDWM 04/26/19 05/03/19 Previous Rx's Medication Instructions Recorded Apixaban [Eliquis] 5 mg PO BID #60 tablet 04/28/19 Ipratropium/Albuterol Neb [Duoneb] 3 ml IH Q6HR PRN #180 vial.neb 05/01/19 Metoprolol XL (24 HR) Succ [Toprol 150 mg PO DAILY #90 tab.er.24h 05/01/19 Xl] Diltiazem CD (24hr) [Cardizem CD] 180 mg PO DAILY #60 cap.er.24h 05/07/19 Furosemide [Lasix] 40 mg PO BID #30 tablet 05/07/19 predniSONE [PredniSONE] 10 mg PO DAILY 9 Days #18 tablet 05/07/19 Allergies Allergy/AdvReac Type Severity Reaction Status Date / Time No Known Allergies Allergy Verified 04/26/19 15:22 Review of Systems: As Per HPI Constitutional: Denies: fever, chills Eyes: Denies: eye pain ENT ED: Denies: ear pain Cardiovascular: Reports: palpitations, dyspnea on exertion. Denies: chest pain Respiratory: Reports: dyspnea. Denies: cough, wheezes Gastrointestinal: Reports: nausea. Denies: abdominal pain, vomiting, diarrhea, hematemesis Genitourinary: Reports: dysuria, frequency. Denies: urgency Musculoskeletal: Reports: back pain Neurological: Reports: headache Endocrine: Reports: fatigue Past Medical History - Past Medical History Attestation: Yes The following information was validated with the patient. Source: patient Medical history: Reports: atrial fibrillation, cancer, diabetes, hypertension Surgical history: Reports: cholecystectomy, hysterectomy Psychiatric history: Reports: no psych history - Social History Smoking Status: Former smoker Smokeless Tobacco Status: No Alcohol use: Reports: none Drug use: Reports: none Physical Exam - General Limitations: no limitations General appearance: alert, in no apparent distress - Head Head exam: atraumatic, normocephalic - Eye Eye exam: Present: normal appearance, EOMI - Expanded Eye Exam Pupils: Left: reactive - ENT ENT exam: normal exam, normal oropharynx, mucous membranes moist - Expanded ENT Exam External ear exam: Present: normal external inspection Mouth exam: Present: normal external inspection Teeth exam: Present: normal inspection Throat exam: Present: normal inspection - Neck Neck exam: Present: normal inspection, full ROM, trachea midline - Chest Chest inspection: Present: normal inspection, symmetric chest wall rise - Respiratory Respiratory exam: Present: normal lung sounds bilaterally - Cardiovascular Cardiovascular exam: Present: other (irregularly irregular) - Abdominal Exam Abdominal exam: Present: soft, Non-Tender. Absent: tenderness, distention, guarding, rebound, rigidity - Extremities Exam Extremities exam: Present: normal inspection, full ROM. Absent: tenderness, pedal edema - Expanded Upper Extremity Exam Shoulder exam: Present: normal inspection, full ROM Arm exam: Present: normal inspection, full ROM Elbow exam: Present: normal inspection, full ROM Forearm/Wrist exam: Present: normal inspection, full ROM Hand exam: Present: normal inspection, full ROM Vascular exam: Normal: capillary refill, radial pulse - Expanded Lower Extremity Exam Hip/Pelvis exam: Present: normal inspection, full ROM Upper leg exam: Present: normal inspection, full ROM Knee exam: Present: normal inspection, full ROM Lower leg exam: Present: normal inspection, full ROM Ankle exam: Present: normal inspection, full ROM Foot/toe exam: Present: normal inspection, full ROM Neurovascular/Tendon exam: Absent: motor deficit, sensory deficit, tendon deficit - Back Exam Back exam: Present: normal inspection, full ROM. Absent: tenderness - Neurological Exam Neurological exam: Present: alert, oriented X3 - Expanded Neurological Exam Patient oriented to: Present: person, place, time Coma Scale Eye Opening: Spontaneous Coma Scale Motor Response: Obeys Commands Coma Scale Verbal Response: Oriented Coma Scale Total: 15 - Psychiatric Psychiatric exam: Present: normal affect, normal mood - Skin Skin exam: Present: warm, dry, intact, normal color Course Course Narrative: 78-year-old female presents with Atrial fibrillation with RVR, uncontrolled with home medications. She received Cardizem 20mg IV here but continues to be RVR. Currently on Cardizem drip and will be admitted for Afib RVR s/p ablation. She also has acute UTI and received dose of Rocephin. - Consultations Consultation #1: Admitting hospitalist has accepted admission to inpatient medicine service. Time: 23:00 Vital Signs Temperature 97.9 F 05/14/19 18:50 Pulse Rate 144 05/14/19 18:50 Respiratory Rate 18 05/14/19 18:50 Blood Pressure 146/75 05/14/19 18:50 O2 Sat by Pulse Oximetry 95 05/14/19 18:50 Temperature 97.9 F 05/14/19 18:50 Pulse Rate 141 05/14/19 20:50 Respiratory Rate 18 05/14/19 20:50 Blood Pressure 126/94 05/14/19 20:50 O2 Sat by Pulse Oximetry 92 05/14/19 20:50 Oxygen Delivery Oxygen Delivery Room Air Medical Decision Making - [facility] Narrative Medical decision making narrative: 78-year-old female presents with Atrial fibrillation with RVR, uncontrolled with home medications. She received Cardizem 20mg IV here but continues to be RVR. Currently on Cardizem drip and will be admitted for Afib RVR s/p ablation. She also has acute UTI and received dose of Rocephin. Patient is to be admitted to inpatient service. - Medical Records Medical records reviewed: Yes I reviewed the patient's medical records. - Lab Data Lab results reviewed: Yes I reviewed the patient's lab results. Result diagrams: 05/14/19 19:05 05/14/19 19:05 Lab Results 05/14/19 05/14/19 05/14/19 Range/Units 19:05 19:05 19:05 WBC 16.6 H (4.3-11.1) K/mcL RBC 5.15 H (3.82-4.97) M/mcL Hgb 14.8 (11.5-15.4) g/dL Hct 46.8 H (35.3-44.9) % MCV 90.9 (83.0-100.0) fL MCH 28.7 (28.0-33.3) pg MCHC 31.6 (31.6-35.5) g/dL RDW 14.6 H (11.5-14.5) % Plt Count 365 (140-400) K/mcL MPV 10.6 (9.4-12.4) fL Immature Gran % 1.0 (0-4) % Seg Neutrophils % 82.6 % Lymphocytes % 9.5 % Monocytes % 6.3 % Eosinophils % 0.4 % Basophils % 0.2 % Neutrophils # 13.7 H (1.6-8.9) K/mcL Lymphocytes # 1.6 (0.6-4.6) K/mcL Monocytes # 1.1 (0.0-1.3) K/mcL Eosinophils # 0.1 (0.0-0.6) K/mcL Basophils # 0.0 (0.0-0.2) K/mcL PT 16.5 H (9.4-12.1) Seconds INR 1.5 APTT 31.9 (26.0-36.0) Seconds Sodium 136 (136-145) mEq/L Potassium 3.1 L (3.5-5.1) mEq/L Chloride 95 L (98-107) mEq/L Carbon Dioxide 29 (23-29) mEq/L BUN 26 H (8-23) mg/dL Creatinine 0.93 (0.60-1.20) mg/dL Est GFR ( Amer) > 60 (> 60) Est GFR (Non-Af Amer) 59 L (> 60) BUN/Creatinine Ratio 28 H (6-26) Glucose 220 H (70-105) mg/dL Calculated Osmolality 294 (280-300) Calcium 9.3 (8.6-10.3) mg/dL Magnesium 1.7 (1.6-2.6) mg/dL Troponin I < 0.03 (< 0.04) ng/mL B-Natriuretic Peptide (Less than 100) pg/mL TSH 2.735 (0.340-5.600) mcIU/mL Urine Color (Yellow) Urine Clarity (Clear) Urine pH (5.0-8.0) pH Units Ur Specific [place] (1.010-1.025) Urine Protein (Neg-Trace) mg/dL Urine Glucose (UA) (Normal) mg/dL Urine Ketones (Negative) mg/dL Urine Blood (Negative) Urine Nitrite (Negative) Urine Bilirubin (Negative) Urine Urobilinogen (Normal) mg/dL Ur Leukocyte Esterase (Negative) Urine Microscopic RBC (0-3) per hpf Urine Microscopic WBC (0-3) per hpf Ur Squamous Epith Cells (None-Few) per lpf Urine Bacteria (None-Few) per hpf Hyaline Casts (None-Few) per lpf Urine Yeast (None Seen) per hpf Ur Culture Indicated? (NO) 05/14/19 05/14/19 Range/Units 19:05 20:38 WBC (4.3-11.1) K/mcL RBC (3.82-4.97) M/mcL Hgb (11.5-15.4) g/dL Hct (35.3-44.9) % MCV (83.0-100.0) fL MCH (28.0-33.3) pg MCHC (31.6-35.5) g/dL RDW (11.5-14.5) % Plt Count (140-400) K/mcL MPV (9.4-12.4) fL Immature Gran % (0-4) % Seg Neutrophils % % Lymphocytes % % Monocytes % % Eosinophils % % Basophils % % Neutrophils # (1.6-8.9) K/mcL Lymphocytes # (0.6-4.6) K/mcL Monocytes # (0.0-1.3) K/mcL Eosinophils # (0.0-0.6) K/mcL Basophils # (0.0-0.2) K/mcL PT (9.4-12.1) Seconds INR APTT (26.0-36.0) Seconds Sodium (136-145) mEq/L Potassium (3.5-5.1) mEq/L Chloride (98-107) mEq/L Carbon Dioxide (23-29) mEq/L BUN (8-23) mg/dL Creatinine (0.60-1.20) mg/dL Est GFR ( Amer) (> 60) Est GFR (Non-Af Amer) (> 60) BUN/Creatinine Ratio (6-26) Glucose (70-105) mg/dL Calculated Osmolality (280-300) Calcium (8.6-10.3) mg/dL Magnesium (1.6-2.6) mg/dL Troponin I (< 0.04) ng/mL B-Natriuretic Peptide 156 H (Less than 100) pg/mL TSH (0.340-5.600) mcIU/mL Urine Color Yellow (Yellow) Urine Clarity Cloudy A (Clear) Urine pH 6.0 (5.0-8.0) pH Units Ur Specific [place] 1.023 (1.010-1.025) Urine Protein Negative (Neg-Trace) mg/dL Urine Glucose (UA) >=1000 H (Normal) mg/dL Urine Ketones Negative (Negative) mg/dL Urine Blood Moderate H (Negative) Urine Nitrite Negative (Negative) Urine Bilirubin Negative (Negative) Urine Urobilinogen Normal (Normal) mg/dL Ur Leukocyte Esterase Moderate H (Negative) Urine Microscopic RBC 15-30 H (0-3) per hpf Urine Microscopic WBC TNTC H (0-3) per hpf Ur Squamous Epith Cells Many H (None-Few) per lpf Urine Bacteria None Seen (None-Few) per hpf Hyaline Casts None Seen (None-Few) per lpf Urine Yeast Many H (None Seen) per hpf Ur Culture Indicated? YES A (NO) - Radiology Data Radiology results reviewed: Yes I reviewed the patient's radiology results. - EKG Data EKG #1 EKG attestation: Yes I reviewed and interpreted this EKG. EKG results narrative: Irregularly irregular. Afib with RVR HR 144 Rhythm: arrhythmia Interpretation: other (Afib with RVR)
[2019-05-14] MEDS ORDERED: Potassium Chloride Elixir 20 MEQ/15 ML UDC PO ONE (20:44)
[2019-05-14 20:55] LABS: Bilirubin,Urine Negative (Negative); Blood,Urine Moderate (Negative); Clarity,Urine Cloudy (Clear); Color,Urine Yellow (Yellow); Glucose,Urine (UA) >=1000 mg/dL (Normal); Ketones,Urine Negative (Negative); Leukocyte Esterase,Urine Moderate (Negative); Nitrite,Urine Negative (Negative); Protein,Urine Negative (Neg-Trace); Specific Gravity,Urine 1.023 (1.010-1.025); Urobilinogen,Urine Normal (Normal)
[2019-05-14 20:57] LABS: Bacteria,Urine None Seen per hpf (None-Few); Hyaline Casts,Urine None Seen per lpf (None-Few); Squamous Epithelial Cell,Urine Many per lpf (None-Few); WBC,Urine TNTC per hpf (0-3)
[2019-05-14 21:25] LABS: RBC,Urine 15-30 per hpf (0-3); Yeast,Urine Many per hpf (None Seen)
[2019-05-14] MEDS ORDERED: cefTRIAXone 1,000 MG in Water for inj. (sterile) 10 ML IVP ONE (21:46)
[2019-05-14] MEDS ORDERED: Ipratropium/Albuterol Neb 3 ML IH PRN (22:58)
[2019-05-14] MEDS ORDERED: *HR* Dextrose 50 % in Water (Syg) 50 ML SYRINGE IVP PRN (23:00)
[2019-05-14] MEDS ORDERED: traMADol 50 MG TABLET PO PRN (23:00)
[2019-05-14] MEDS ORDERED: Acetaminophen 325 MG TABLET PO PRN (23:00)
[2019-05-14] MEDS ORDERED: Dextrose Gel 15 GM/37.5 ML TUBE PO PRN ×2 (23:00)
--- NOTE | 2019-05-14 23:30 | Internal Med History&Physical ---
Date of Encounter: 05/14/19 Time of Encounter: 23:29 Internal Medicine - H&P: HPI Chief complaint: palpitations Admitted From: Home Plans for Post Hospital Care: Home History of present illness: Dalia Coronado is a 78-year-old woman with pulmonary embolism, hypertension, diabetes, chronic respiratory failure due to COPD and atrial fibrillation on anticoagulation who was discharged from here about 10 days ago after developing SVT and atrial flutter after initially presenting with A. fib with RVR. She required synchronized cardioversion due to poor response to medical therapy. She has since been doing well at home and says her day has been uneventful until about 5 PM today she started to feel palpitations while she was sitting down and not exerting herself. He said during the day her heart rate had been in the 50s and 60s of this was a surprise to her. She denied associated chest pain, dyspnea, headache, abdominal pain and dizziness. On arrival here she was seen to be in A. fib with RVR into the 140s and she was given an initial dose of diltiazem followed by drip due to poor response to the former. Lab work revealed mild hypokalemia at 3.1 and hypochloremia 95. Her urine was concerning for an infection so she was given 1 dose of ceftriaxone although she denies any dysuric symptoms per se. Vitals: Reviewed General: Obese elderly white woman sitting up in bed in no acute distress. Skin: Warm, dry and pale. HEENT: Moist mucous membranes. No conjunctivae pallor. Neck: No lymphadenopathy. No JVD. No carotid bruits. No palpable thyroid. Chest: Diminished thoracic expansion but no wheezes, rales or rhonchi. Heart: Irregularly irregular. Abdomen: Non-distended, soft and non-tender to palpation. No peritoneal reaction. Extremities: 1-2+ edema in both lower legs. Neurological: Awake, alert and oriented to person, place and time. No focal deficits. Psych: Affect appropriate. Assessment/Plan 1. Atrial fibrillation with rapid ventricular response: Will continue to titrate diltiazem drip till we can achieve a heart rate <100. Her oral rate control agents will be continued tomorrow. She remains on oral anticoagulant therapy without any bleeding issues. Currently hemodynamically stable. 2. Leukocytosis: Not a new finding when trended. Suspect it may be secondary to her use of steroids given of recent for a COPD exacerbation. No other clinical signs of infection are present. Will monitor. 3. Abnormal UA: The patient has no specific dysuric symptoms per se and I suspect the leukocytosis is not related to this. She was given 1 dose of ceftriaxone in the ER empirically. Although not indicated, may complete a 3 day course of antibiotics orally for possible cystitis given the confounding factors. Amox/clav ordered for 2 more days. 4. COPD: Currently asymptomatic. Nebulizers ordered as needed. 5. Diabetes: Last A1C 7.1%. Will place on insulin sliding scale. Past Med Surg Social Fam HX - Past Medical History Medical history: atrial fibrillation, cancer, diabetes, hypertension Additional medical history: Endometrial CA, 2008 Psychiatric history: no psych history - Past Surgical History Surgical History: cholecystectomy, hysterectomy Additional surgical history: cancer sx - Social History Smoking Status: Former smoker Smokeless Tobacco Status: No Alcohol use: none Drug use: none Internal Medicine - H&P: Meds metFORMIN [Glucophage] 1,000 mg PO BIDWM 04/26/19 [History] Apixaban [Eliquis] 5 mg PO BID #60 tablet 04/28/19 [Rx] Ipratropium/Albuterol Neb [Duoneb] 3 ml IH Q6HR PRN #180 vial.neb 05/01/19 [Rx] Metoprolol XL (24 HR) Succ [Toprol Xl] 150 mg PO DAILY #90 tab.er.24h 05/01/19 [Rx] Diltiazem CD (24hr) [Cardizem CD] 180 mg PO DAILY #60 cap.er.24h 05/07/19 [Rx] Furosemide [Lasix] 40 mg PO BID #30 tablet 05/07/19 [Rx] predniSONE [PredniSONE] 10 mg PO DAILY 9 Days #18 tablet 05/07/19 [Rx] Allergy/AdvReac Type Severity Reaction Status Date / Time No Known Allergies Allergy Verified 04/26/19 15:22 All Systems PM: A 10-system review of systems was performed and is negative for pertinent findings except as documented above in the HPI. Family history reviewed and found non-contributory. - Constitutional Vitals: Temp Pulse Resp BP Pulse Ox 97.9 F 105 18 130/64 93 05/14/19 18:50 05/14/19 23:00 05/14/19 20:50 05/14/19 23:00 05/14/19 23:00 Exam: . Internal Med - H&P Results - Labs CBC & Chem 7: 05/14/19 19:05 05/14/19 19:05 Labs: Short CBC 05/14/19 Range/Units 19:05 WBC 16.6 H (4.3-11.1) K/mcL Hgb 14.8 (11.5-15.4) g/dL Hct 46.8 H (35.3-44.9) % Plt Count 365 (140-400) K/mcL Neutrophils # 13.7 H (1.6-8.9) K/mcL BMP 05/14/19 19:05 Sodium 136 Potassium 3.1 L Chloride 95 L Carbon Dioxide 29 BUN 26 H Creatinine 0.93 Glucose 220 H Calcium 9.3 Cardiac Enzymes 05/14/19 Range/Units 19:05 Troponin I < 0.03 (< 0.04) ng/mL Urine 05/14/19 Range/Units 20:38 Urine Color Yellow (Yellow) Urine Clarity Cloudy A (Clear) Urine pH 6.0 (5.0-8.0) pH Units Ur Specific [place] 1.023 (1.010-1.025) Urine Protein Negative (Neg-Trace) mg/dL Urine Glucose (UA) >=1000 H (Normal) mg/dL - Impressions ITS Impressions Chest X-Ray 05/14/19 19:01 IMPRESSION: Stable cardiomegaly. Interval improvement in pulmonary edema. Right basilar opacity compatible atelectasis and/or infiltrate. D/ / Alia Neves MD / Alia Neves MD Interpreting Provider: Alia Neves MD - Time Spent With Patient Total time spent is greater than 50% in coordination of care (as documented) at patient's floor/unit and/or counseling patient:
[2019-05-15 06:31] LABS: Basophils % 0.2 %; Eosinophils # 0.1 K/mcL (0.0-0.6); Eosinophils % 0.7 %; Hematocrit 42.2 % (35.3-44.9); Immature Granulocytes % 0.9 % (0-4); Lymphocytes # 1.4 K/mcL (0.6-4.6); Lymphocytes % 10.7 %; Mean Corpuscular Hemoglobin 28.7 pg (28.0-33.3); Mean Corpuscular Volume 92.5 fL (83.0-100.0); Mean Platelet Volume 10.5 fL (9.4-12.4); Monocytes % 8.1 %; Neutrophils # 10.1 K/mcL (1.6-8.9); Platelet Count 291 K/mcL (140-400); Red Blood Count 4.56 M/mcL (3.82-4.97); Red Cell Distribution Width 14.8 % (11.5-14.5); Segmented Neutrophils % 79.4 %; White Blood Count 12.7 K/mcL (4.3-11.1)
[2019-05-15 06:36] LABS: Hemoglobin 13.1 g/dL (11.5-15.4)
[2019-05-15 06:48] LABS: BUN/Creatinine Ratio 30 (6-26); Blood Urea Nitrogen 23 mg/dL (8-23); Calcium 8.8 mg/dL (8.6-10.3); Carbon Dioxide 30 mEq/L (23-29); Chloride 98 mEq/L (98-107); Glucose 179 mg/dL (70-105); Osmolality,Calculated 302 (280-300); Sodium 142 mEq/L (136-145); eGFR For African Americans > 60 (> 60); eGFR For Non-African Americans > 60 (> 60)
--- NOTE | 2019-05-15 07:54 | Internal Med Progress Note ---
Hospitalist Progress Note - Encounter Date of Encounter: 05/15/19 Time of Encounter: 09:00 - Subjective Interval History: No acute events overnight. Transitioned from cardizem drip to po cardizem - Exam Vitals: Temp Pulse Resp BP Pulse Ox 98.0 F 70 16 131/71 92 05/15/19 07:48 05/15/19 07:48 05/15/19 07:48 05/15/19 07:48 05/15/19 07:48 Exam: General appearance: Present: A&O X 3, no acute distress Head exam: Present: normocephalic Respiratory exam: Present: CTAB. Absent: accessory muscle use, rales, rhonchi, wheezes Cardiovascular exam: Present: RRR, +S1, +S2. Absent: diastolic murmur, gallop, rubs, systolic murmur GI/Abdominal exam: Soft, NT, ND, +BS Extremities exam: Absent: pedal edema Neurological exam: Present: alert, oriented X3, no focal deficits. Absent: altered - Assessment and Plan (1) Atrial fibrillation with rapid ventricular response Current Visit: Yes Status: Acute Assessment and Plan: pt comes in with atrial fibrillation with RVR with R in the 130s Started on cardizem drip overnight and weaned to po cardizem and beta blockers Continue anticoagulation with eliquis (2) Hypokalemia Current Visit: Yes Status: Acute Assessment and Plan: Potassium replaced (3) Chronic respiratory failure Current Visit: Yes Status: Acute Assessment and Plan: Chronic resp failure 2/2 to COPD. No acute exacerbation. Nebs PRN (4) UTI (urinary tract infection) Current Visit: Yes Status: Chronic Assessment and Plan: Continue antibiotics with augmentin (5) DVT prophylaxis Current Visit: Yes Status: Acute Assessment and Plan: On heparin sc - Time Spent with Patient Total time spent is greater than 50% in coordination of care (as documented) at patient's floor/unit and/or counseling patient: Internal Medicine: Result - Labs CBC & Chem 7: 05/15/19 06:01 05/15/19 06:01 Labs: Short CBC 05/14/19 05/15/19 Range/Units 19:05 06:01 WBC 16.6 H 12.7 H (4.3-11.1) K/mcL Hgb 14.8 13.1 D (11.5-15.4) g/dL Hct 46.8 H 42.2 (35.3-44.9) % Plt Count 365 291 (140-400) K/mcL Neutrophils # 13.7 H 10.1 H (1.6-8.9) K/mcL BMP 05/14/19 05/15/19 19:05 06:01 Sodium 136 142 Potassium 3.1 L 3.0 L Chloride 95 L 98 Carbon Dioxide 29 30 H BUN 26 H 23 Creatinine 0.93 0.77 Glucose 220 H 179 H Calcium 9.3 8.8 Cardiac Enzymes 05/14/19 Range/Units 19:05 Troponin I < 0.03 (< 0.04) ng/mL Urine 05/14/19 Range/Units 20:38 Urine Color Yellow (Yellow) Urine Clarity Cloudy A (Clear) Urine pH 6.0 (5.0-8.0) pH Units Ur Specific [place] 1.023 (1.010-1.025) Urine Protein Negative (Neg-Trace) mg/dL Urine Glucose (UA) >=1000 H (Normal) mg/dL - ABG Interpretation ABG results: PT/INR, D-dimer PT 16.5 Seconds (9.4-12.1) H 05/14/19 19:05 - Impressions Impressions Chest X-Ray 05/14/19 19:01 IMPRESSION: Stable cardiomegaly. Interval improvement in pulmonary edema. Right basilar opacity compatible atelectasis and/or infiltrate. D/ / Alia Neves MD / Alia Neves MD Interpreting Provider: Alia Neves MD Consult Discharge Plan - Plan Instructions: Atrial Fibrillation (DC), Chest Pain (DC) Referrals: Guy Nagel MD [Primary Care Provider] - (3) Chronic respiratory failure Qualifiers: Qualified Code(s): J96.10 - Chronic respiratory failure, unspecified whether with hypoxia or hypercapnia (4) UTI (urinary tract infection) Qualifiers: Urinary tract infection type: site unspecified Hematuria presence: with hematuria Qualified Code(s): N39.0 - Urinary tract infection, site not specified; R31.9 - Hematuria, unspecified
[2019-05-15] MEDS: Insulin LISPRO 300 UNITS/3 ML VIAL SQ SCH ×3 (08:30→18:26)
[2019-05-15] MEDS: Diltiazem CD (24hr) 180 MG CAPSULE PO SCH (08:30)
[2019-05-15] MEDS: Apixaban 5 MG TABLET PO SCH ×2 (08:30→20:58)
[2019-05-15] MEDS: Metoprolol XL (24 HR) Succ 50 MG TAB.ER.24H PO SCH (08:30)
[2019-05-15] MEDS: Potassium Chloride Elixir 20 MEQ/15 ML UDC PO SCH ×2 (08:31→12:53)
[2019-05-15] MEDS ORDERED: Furosemide 40 MG TABLET PO SCH (09:00)
[2019-05-15] MEDS ORDERED: D5% in Water 1,000 ML IVC PRN (09:52)
--- NOTE | 2019-05-15 13:50 | Event Note ---
Date of Encounter: 05/15/19 Time of Encounter: 13:30 - Cardiology Event Note Cardiology consult for atrial fibrillation. Patient is back in NSR, HR 70s. Discussed with Dr. Hinson; recommend outpatient follow-up with EP for consideration of antiarrhythmics. She has outpatient appointment scheduled, 06/09/[address] Joel Seaman. No further inpt recommendations. Of note, recent inpt Cardiology consult on 05/06/19. Active Medications Acetaminophen (Tylenol) 650 mg PO Q6H PRN PRN Reason: Mild Pain/Fever Stop: 11/13/19 23:01 Albuterol/Ipratropium (Duoneb) 3 ml IH Q6H PRN PRN Reason: Shortness Of Breath Stop: 11/13/19 22:59 Amoxicillin/Clavulanate Potassium (Augmentin) 875 mg PO BIDWM PENDING SALE TO [facility] Stop: 05/17/19 08:01 Last Admin: 05/15/19 08:30 Dose: 875 mg Documented by: Apixaban (Eliquis) 5 mg PO BID PENDING SALE TO [facility]; Protocol Stop: 11/14/19 09:01 Last Admin: 05/15/19 08:30 Dose: 5 mg Documented by: Dextrose/Water (Dextrose 50% (Syg)) 25 ml IVP AD PRN PRN Reason: Hypoglycemia Stop: 11/13/19 23:01 Diltiazem HCl (Cardizem Cd) 180 mg PO DAILY PENDING SALE TO [facility] Stop: 11/14/19 09:01 Last Admin: 05/15/19 08:30 Dose: 180 mg Documented by: Furosemide (Lasix) 40 mg PO BIDDIURETIC TERRY Stop: 11/14/19 17:01 Glucagon (Glucagen) 1 mg IM ONCE PRN PRN Reason: Hypoglycemia Stop: 11/14/19 09:53 Glucose (Gluctose) 15 gm PO ONCE PRN PRN Reason: Hypoglycemia Stop: 11/13/19 23:01 Glucose (Gluctose) 30 gm PO ONCE PRN PRN Reason: Hypoglycemia Stop: 11/13/19 23:01 Dextrose (Dextrose 5%) 1,000 mls @ 100 mls/hr IVC .Q10H PRN PRN Reason: HYPOGLYCEMIA Stop: 11/14/19 09:53 Insulin Human Lispro (Humalog) 0 units SQ HS TERRY; Protocol Stop: 02/04/20 21:01 Insulin Human Lispro (Humalog) 0 units SQ TIDAC PENDING SALE TO [facility]; Protocol Stop: 11/14/19 07:31 Last Admin: 05/15/19 12:53 Dose: 2 units Documented by: Metoprolol Succinate (Toprol Xl) 150 mg PO DAILY PENDING SALE TO [facility] Stop: 11/14/19 09:01 Last Admin: 05/15/19 08:30 Dose: 150 mg Documented by: Tramadol HCl (Ultram) 50 mg PO Q6H PRN PRN Reason: Moderate Pain Stop: 11/13/19 23:01 HAS-BLED Score - Score Elderly: Age>65 years Medication usage predisposing to bleeding: Antiplatelet agents, NSAIDs, Anticoagulants Score: 2
--- NOTE | 2019-05-15 14:55 | Electrocardiograph Report ---
[place] [id number] Test Date: 2019-05-14 Pat Name: Dalia Coronado Department: [id number] Room: 2A Gender: F Visualization Developer: : [id number] Requested By: Dangelo Nascimento Order Number: [id number] Reading MD: Jules Otero Measurements Intervals [place] Rate: 141 P: 265 [place]: 130 QRS: -29 QRSD: 73 T: 73 QT: 316 QTc: 484 Interpretive Statements PROBABLY ATRIAL FLUTTER 2:1 Abnormal R-wave progression, late transition LVH with secondary repolarization abnormality ST depression, probably rate related Electronically Signed On 05-15-2019 14:53:35 EDT by Jules Otero
[2019-05-15] MEDS: Furosemide 40 MG TABLET PO SCH (18:29)
[2019-05-15] MEDS ORDERED: Insulin LISPRO 300 UNITS/3 ML VIAL SQ SCH (21:00)
[2019-05-15] MEDS ORDERED: Melatonin 3 MG TABLET PO PRN (21:00)
[2019-05-15] MEDS: Nystatin Cream 15 GM TUBE TP SCH (23:40)
[2019-05-16 05:36] LABS: Basophils % 0.2 %; Eosinophils # 0.2 K/mcL (0.0-0.6); Eosinophils % 1.4 %; Hematocrit 43.5 % (35.3-44.9); Hemoglobin 13.4 g/dL (11.5-15.4); Immature Granulocytes % 0.8 % (0-4); Lymphocytes # 1.4 K/mcL (0.6-4.6); Lymphocytes % 10.7 %; Mean Corpuscular HGB Conc 30.8 g/dL (31.6-35.5); Mean Corpuscular Hemoglobin 28.5 pg (28.0-33.3); Mean Corpuscular Volume 92.6 fL (83.0-100.0); Mean Platelet Volume 10.8 fL (9.4-12.4); Monocytes % 7.9 %; Neutrophils # 10.2 K/mcL (1.6-8.9); Platelet Count 303 K/mcL (140-400); Red Cell Distribution Width 14.9 % (11.5-14.5)
[2019-05-16 05:43] LABS: BUN/Creatinine Ratio 31 (6-26); Blood Urea Nitrogen 21 mg/dL (8-23); Calcium 8.8 mg/dL (8.6-10.3); Carbon Dioxide 29 mEq/L (23-29); Chloride 100 mEq/L (98-107); Glucose 175 mg/dL (70-105); Magnesium 1.9 mg/dL (1.6-2.6); Osmolality,Calculated 295 (280-300); Potassium 3.4 mEq/L (3.5-5.1); Sodium 139 mEq/L (136-145); eGFR For African Americans > 60 (> 60); eGFR For Non-African Americans > 60 (> 60)
--- NOTE | 2019-05-16 08:37 | Discharge Summary ---
Orders not resulted at time of discharge: Pending orders 05/14/19 20:38 Culture,Urine [RM] Stat Date of Encounter: 05/16/19 Time of Encounter: 08:00 - Discharge Diagnosis (1) Atrial fibrillation with rapid ventricular response Priority: Primary Status: Acute Assessment and Plan: 78-year-old woman with pulmonary embolism, hypertension, diabetes, chronic respiratory failure due to COPD and atrial fibrillation on anticoagulation who was discharged from here about 10 days ago after developing SVT and atrial flutter after initially presenting with A. fib with RVR. She required synchronized cardioversion due to poor response to medical therapy. She has since been doing well at home and says her day has been uneventful until about 5 PM today she started to feel palpitations while she was sitting down and not exerting herself. He said during the day her heart rate had been in the 50s and 60s of this was a surprise to her. She denied associated chest pain, dyspnea, headache, abdominal pain and dizziness. On arrival here she was seen to be in A. fib with RVR into the 140s and she was given an initial dose of diltiazem followed by drip due to poor response to the former. She was assessed with atrial fibrillation with RVR with HR in the 130s. She was started on cardizem drip and weaned to po cardizem and beta blockers. She was seen by cardiology who recommended increasing her cardizem dose to 240mg daily and Continue anticoagulation with eliquis. She has an outpatient follow up with EP later this month. Discharged in a stable condition (2) Hypokalemia Priority: Primary Status: Acute (3) Chronic respiratory failure Priority: Primary Status: Acute Qualifiers: Qualified Code(s): J96.10 - Chronic respiratory failure, unspecified whether with hypoxia or hypercapnia (4) UTI (urinary tract infection) Priority: Primary Status: Chronic Qualifiers: Urinary tract infection type: site unspecified Hematuria presence: with hematuria Qualified Code(s): N39.0 - Urinary tract infection, site not specified; R31.9 - Hematuria, unspecified (5) DVT prophylaxis Priority: Primary Status: Acute Hospital course: Ms. Coronado is a 78 year old female - Time Spent with Patient Total time spent providing and/or coordinating discharge services: - Discharge Medications Prescriptions: New Diltiazem CD (24hr) [Cardizem CD] 240 mg PO DAILY #60 cap.er.24h Continued Apixaban [Eliquis] 5 mg PO BID #60 tablet Metoprolol XL (24 HR) Succ [Toprol Xl] 150 mg PO DAILY #90 tab.er.24h Furosemide [Lasix] 40 mg PO BID #30 tablet predniSONE [PredniSONE] 10 mg PO DAILY 9 Days #18 tablet Empagliflozin [Jardiance] 10 mg PO QAM Discontinued Diltiazem CD (24hr) [Cardizem CD] 180 mg PO QAM Home Medications: Apixaban [Eliquis] 5 mg PO BID #60 tablet 04/28/19 [Rx] Metoprolol XL (24 HR) Succ [Toprol Xl] 150 mg PO DAILY #90 tab.er.24h 05/01/19 [Rx] Furosemide [Lasix] 40 mg PO BID #30 tablet 05/07/19 [Rx] predniSONE [PredniSONE] 10 mg PO DAILY 9 Days #18 tablet 05/07/19 [Rx] Empagliflozin [Jardiance] 10 mg PO QAM 05/15/19 [History] Diltiazem CD (24hr) [Cardizem CD] 240 mg PO DAILY #60 cap.er.24h 05/16/19 [Rx] Allergies/Adverse Reactions: Allergy/AdvReac Type Severity Reaction Status Date / Time oxycodone Allergy See Verified 05/15/19 16:59 Comments Date of admission: 05/14/19 22:49 Primary care physician: Guy Nagel MD Consults: 05/15/19 10:30 Consult to Cardiology [CONS] Routine Comment: Consulting Provider: Cardiology Marium Reason for Consult: recurrent afib with RVR s/p recent cardioversion Call Completed: No - Constitutional Vitals: Temp Pulse Resp BP Pulse Ox 97.9 F 65 16 129/56 94 05/16/19 07:52 05/16/19 07:52 05/16/19 07:52 05/16/19 07:52 05/16/19 07:52 Exam: General appearance: Present: A&O X 3, no acute distress Head exam: Present: normocephalic Respiratory exam: Present: CTAB. Absent: accessory muscle use, rales, rhonchi, wheezes Cardiovascular exam: Present: RRR, +S1, +S2. Absent: diastolic murmur, gallop, rubs, systolic murmur GI/Abdominal exam: Soft, NT, ND, +BS Extremities exam: Absent: pedal edema Neurological exam: Present: alert, oriented X3, no focal deficits. Absent: altered - Patient Status Disposition: Home, Self-Care Condition: Good - Discharge Instructions Instructions: Atrial Fibrillation (DC), Chest Pain (DC) Follow Up With: Guy Nagel MD [Primary Care Provider] - 05/22/19 9:15 am (Please follow up as schedule...) Joel Seaman MD [Partnered Physician] - 06/09/19 (Cardio will call for an earlier appointment)
[2019-05-16] MEDS: Diltiazem CD (24hr) 180 MG CAPSULE PO SCH (09:29)
[2019-05-16] MEDS: Nystatin Cream 15 GM TUBE TP SCH ×2 (09:29→14:41)
[2019-05-16] MEDS: Furosemide 40 MG TABLET PO SCH (09:29)
[2019-05-16] MEDS: Metoprolol XL (24 HR) Succ 50 MG TAB.ER.24H PO SCH (09:29)
[2019-05-16] MEDS: Potassium Chloride Elixir 20 MEQ/15 ML UDC PO SCH ×2 (09:29→12:11)
[2019-05-16] MEDS: Apixaban 5 MG TABLET PO SCH (09:29)
[2019-05-16] MEDS: Insulin LISPRO 300 UNITS/3 ML VIAL SQ SCH ×2 (09:30→12:12)
[2019-05-16 11:12] VITALS: BP 136/82
[2019-05-16] MEDS ORDERED: Diltiazem SR (12hr) 60 MG CAPSULE PO ONE (13:21)
== END 2019-05-16 16:32 | disposition home or self-care (01) ==
LOC: EMEROOARM 18:44 → 2ANU 18:44
PROVIDERS: ADMIT Internal Medicine; ATTEND Internal Medicine

== ENCOUNTER 2020-10-11 01:56 | Inpatient (IN) ==
[2020-10-11 02:54] LABS: Basophils % 0.3 %; Hemoglobin 15.4 g/dL (11.5-15.4); Immature Granulocytes % 0.7 % (0-4); Lymphocytes # 0.6 K/mcL (0.6-4.6); Lymphocytes % 8.1 %; Mean Corpuscular HGB Conc 32.1 g/dL (31.6-35.5); Mean Corpuscular Hemoglobin 27.5 pg (28.0-33.3); Mean Corpuscular Volume 85.7 fL (83.0-100.0); Mean Platelet Volume 9.4 fL (9.4-12.4); Monocytes # 0.9 K/mcL (0.0-1.3); Monocytes % 12.7 %; Neutrophils # 5.3 K/mcL (1.6-8.9); Platelet Count 310 K/mcL (140-400); Red Cell Distribution Width 14.6 % (11.5-14.5); Segmented Neutrophils % 78.2 %; White Blood Count 6.8 K/mcL (4.3-11.1)
[2020-10-11] MEDS ORDERED: Aspirin 81 MG TAB.CHEW PO ONE (03:03)
[2020-10-11] MEDS ORDERED: *HR* LORazepam 2 MG/ML VIAL IVP ONE (03:03)
[2020-10-11 03:04] LABS: Bacteria,Urine Moderate per hpf (None-Few); Bilirubin,Urine Negative (Negative); Blood,Urine Small (Negative); Clarity,Urine Turbid (Clear); Color,Urine Light-Yellow (Yellow); Glucose,Urine (UA) 500 mg/dL (Normal); Ketones,Urine Trace mg/dL (Negative); Leukocyte Esterase,Urine Large (Negative); Mucus,Urine Few per lpf (None-Few); Nitrite,Urine Negative (Negative); Protein,Urine Negative (Neg-Trace); RBC,Urine 0-3 per hpf (0-3); Specific Gravity,Urine < 1.005 (1.010-1.025); Squamous Epithelial Cell,Urine Few per hpf (None-Few); Urobilinogen,Urine Normal (Normal); WBC,Urine 15-30 per hpf (0-3)
[2020-10-11 03:17] LABS: Alanine Aminotransferase 27 Units/L (7-52); Albumin 3.7 g/dL (3.5-5.7); Albumin/Globulin Ratio 1.1 (1.1-2.2); Alkaline Phosphatase 111 Units/L (34-104); Aspartate Amino Transferase 33 Units/L (13-39); BUN/Creatinine Ratio 18 (6-26); Bilirubin,Total 0.8 mg/dL (0.3-1.0); Blood Urea Nitrogen 12 mg/dL (8-23); Calcium 8.5 mg/dL (8.6-10.3); Carbon Dioxide 25 mEq/L (23-29); Chloride 96 mEq/L (98-107); Globulin 3.4 g/dL (2.4-3.5); Glucose 137 mg/dL (70-105); Osmolality,Calculated 286 (280-300); Potassium 2.5 mEq/L (3.5-5.1); Sodium 137 mEq/L (136-145); Total Protein 7.1 g/dL (6.4-8.9); Troponin I < 0.03 ng/mL (< 0.04); eGFR For African Americans > 60 (> 60); eGFR For Non-African Americans > 60 (> 60)
[2020-10-11] MEDS ORDERED: Potassium Chloride 40 MEQ, Lidocaine 1% 2 ML in 0.9 % Sodium Chloride 500 ML IVPB ONE (03:18)
[2020-10-11] MEDS ORDERED: cefTRIAXone 1,000 MG in Water for inj. (sterile) 10 ML IVP ONE (03:20)
[2020-10-11 04:02] LABS: Magnesium 1.6 mg/dL (1.6-2.6)
[2020-10-11] MEDS ORDERED: Dexamethasone 4 MG/ML VIAL IVP ONE (04:37)
[2020-10-11] MEDS ORDERED: Azithromycin 500 MG in 0.9 % Sodium Chloride 250 ML IVPB ONE (04:37)
[2020-10-11] MEDS ORDERED: Naloxone 0.4 MG/ML INJ IVP PRN (04:53)
[2020-10-11] MEDS ORDERED: Ondansetron 4 MG/2 ML VIAL IVP PRN (04:53)
[2020-10-11] MEDS ORDERED: D5% in Water 1,000 ML IVC PRN (04:56)
[2020-10-11] MEDS ORDERED: Dextrose Gel 15 GM/37.5 ML TUBE PO PRN ×2 (04:56)
[2020-10-11] MEDS ORDERED: *HR* Dextrose 50 % in Water (Vial) 50 ML VIAL IVP PRN (04:56)
[2020-10-11 05:15] LABS: INR 1.4; Prothrombin Time 15.7 Seconds (9.4-12.1)
[2020-10-11 06:44] LABS: Ferritin 245 ng/mL (10-120); Lactate Dehydrogenase 248 Units/L (140-271)
[2020-10-11] MEDS: Acetaminophen 325 MG TABLET PO PRN (07:00)
[2020-10-11] MEDS: Insulin LISPRO 300 UNITS/3 ML VIAL SUBQ SCH ×4 (07:55→20:44)
[2020-10-11] MEDS: Furosemide 40 MG TABLET PO SCH ×2 (08:56→20:44)
[2020-10-11] MEDS: Apixaban 5 MG TABLET PO SCH ×2 (08:56→20:44)
[2020-10-11] MEDS: Dexamethasone Sodium Phos/PF 10 MG/ML VIAL IVP SCH (08:56)
[2020-10-11] MEDS: DilTIAZem CD (24hr) 240 MG CAP.ER.24H PO SCH (08:56)
[2020-10-11] MEDS: Metoprolol XL (24 HR) Succ 50 MG TAB.ER.24H PO SCH (08:56)
[2020-10-11 12:57] LABS: BUN/Creatinine Ratio 18 (6-26); Blood Urea Nitrogen 10 mg/dL (8-23); C-Reactive Protein 47 mg/L (Less than 10); Calcium 8.3 mg/dL (8.6-10.3); Carbon Dioxide 25 mEq/L (23-29); Chloride 103 mEq/L (98-107); Glucose 238 mg/dL (70-105); Magnesium 2.3 mg/dL (1.6-2.6); Osmolality,Calculated 295 (280-300); Potassium 3.4 mEq/L (3.5-5.1); Sodium 139 mEq/L (136-145); eGFR For African Americans > 60 (> 60); eGFR For Non-African Americans > 60 (> 60)
[2020-10-11] MEDS: cefTRIAXone 1,000 MG in Water for inj. (sterile) 10 ML IVP SCH (17:29)
[2020-10-11 17:49] LABS: Estimated Average Glucose 166 mg/dl; Hemoglobin A1C 7.4 %
[2020-10-11] MEDS: Insulin DETEMIR 100 UNIT/ML X5UNITS SUBQ SCH (20:46)
[2020-10-12] MEDS ORDERED: ALPRAZolam 1 MG TABLET PO ONE (00:35)
[2020-10-12 07:42] LABS: Basophils % 0.2 %; Hemoglobin 14.8 g/dL (11.5-15.4); Immature Granulocytes % 1.4 % (0-4); Lymphocytes # 0.8 K/mcL (0.6-4.6); Lymphocytes % 9.4 %; Mean Corpuscular HGB Conc 31.5 g/dL (31.6-35.5); Mean Corpuscular Hemoglobin 27.4 pg (28.0-33.3); Mean Corpuscular Volume 86.9 fL (83.0-100.0); Mean Platelet Volume 9.5 fL (9.4-12.4); Monocytes # 0.6 K/mcL (0.0-1.3); Neutrophils # 7.1 K/mcL (1.6-8.9); Platelet Count 329 K/mcL (140-400); Red Blood Count 5.41 M/mcL (3.82-4.97); White Blood Count 8.6 K/mcL (4.3-11.1)
[2020-10-12 08:02] LABS: BUN/Creatinine Ratio 22 (6-26); Blood Urea Nitrogen 14 mg/dL (8-23); Calcium 8.6 mg/dL (8.6-10.3); Carbon Dioxide 28 mEq/L (23-29); Chloride 103 mEq/L (98-107); Glucose 146 mg/dL (70-105); Magnesium 2.1 mg/dL (1.6-2.6); Osmolality,Calculated 297 (280-300); Phosphorous 3.7 mg/dL (2.7-4.5); Potassium 3.6 mEq/L (3.5-5.1); Sodium 142 mEq/L (136-145); eGFR For African Americans > 60 (> 60); eGFR For Non-African Americans > 60 (> 60)
[2020-10-12] MEDS: Apixaban 5 MG TABLET PO SCH ×2 (08:41→21:54)
[2020-10-12] MEDS: Dexamethasone Sodium Phos/PF 10 MG/ML VIAL IVP SCH (08:41)
[2020-10-12] MEDS: Furosemide 40 MG TABLET PO SCH ×2 (08:41→21:54)
[2020-10-12] MEDS: Insulin LISPRO 300 UNITS/3 ML VIAL SUBQ SCH ×4 (08:43→21:44)
[2020-10-12] MEDS: Metoprolol XL (24 HR) Succ 50 MG TAB.ER.24H PO SCH (10:06)
[2020-10-12] MEDS: DilTIAZem CD (24hr) 240 MG CAP.ER.24H PO SCH (10:06)
[2020-10-12] MEDS ORDERED: Metoprolol XL (24 HR) Succ 50 MG TAB.ER.24H PO ONE (10:15)
[2020-10-12] MEDS ORDERED: *HR* LORazepam 2 MG/ML VIAL IVP ONE (17:09)
[2020-10-12] MEDS: cefTRIAXone 1,000 MG in Water for inj. (sterile) 10 ML IVP SCH (17:38)
[2020-10-12] MEDS: Insulin DETEMIR 100 UNIT/ML X5UNITS SUBQ SCH (21:54)
[2020-10-13 07:02] LABS: Basophils % 0.1 %; Hematocrit 45.2 % (35.3-44.9); Hemoglobin 14.1 g/dL (11.5-15.4); Immature Granulocytes % 0.7 % (0-4); Lymphocytes # 0.6 K/mcL (0.6-4.6); Lymphocytes % 5.2 %; Mean Corpuscular HGB Conc 31.2 g/dL (31.6-35.5); Mean Corpuscular Hemoglobin 27.4 pg (28.0-33.3); Mean Corpuscular Volume 87.8 fL (83.0-100.0); Mean Platelet Volume 9.8 fL (9.4-12.4); Monocytes # 0.7 K/mcL (0.0-1.3); Monocytes % 5.6 %; Neutrophils # 10.8 K/mcL (1.6-8.9); Platelet Count 368 K/mcL (140-400); Red Blood Count 5.15 M/mcL (3.82-4.97); Red Cell Distribution Width 14.8 % (11.5-14.5); Segmented Neutrophils % 88.4 %; White Blood Count 12.2 K/mcL (4.3-11.1)
[2020-10-13 07:23] LABS: BUN/Creatinine Ratio 27 (6-26); Blood Urea Nitrogen 18 mg/dL (8-23); Calcium 8.5 mg/dL (8.6-10.3); Carbon Dioxide 29 mEq/L (23-29); Chloride 101 mEq/L (98-107); Glucose 181 mg/dL (70-105); Magnesium 1.9 mg/dL (1.6-2.6); Osmolality,Calculated 294 (280-300); Phosphorous 3.1 mg/dL (2.7-4.5); Potassium 3.6 mEq/L (3.5-5.1); Sodium 139 mEq/L (136-145); eGFR For African Americans > 60 (> 60); eGFR For Non-African Americans > 60 (> 60)
[2020-10-13] MEDS: Dexamethasone Sodium Phos/PF 10 MG/ML VIAL IVP SCH (07:40)
[2020-10-13] MEDS: Apixaban 5 MG TABLET PO SCH ×2 (07:40→20:13)
[2020-10-13] MEDS: Furosemide 40 MG TABLET PO SCH ×2 (07:40→20:13)
[2020-10-13] MEDS: Insulin LISPRO 300 UNITS/3 ML VIAL SUBQ SCH ×4 (07:41→21:36)
[2020-10-13] MEDS: DilTIAZem CD (24hr) 240 MG CAP.ER.24H PO SCH (07:42)
[2020-10-13] MEDS: Metoprolol XL (24 HR) Succ 50 MG TAB.ER.24H PO SCH (07:44)
[2020-10-13] MEDS ORDERED: *HR* LORazepam 1 MG TABLET PO PRN (09:06)
[2020-10-13] MEDS: cefTRIAXone 1,000 MG in Water for inj. (sterile) 10 ML IVP SCH (17:17)
[2020-10-13] MEDS: *HR* LORazepam 1 MG TABLET PO PRN (20:16)
[2020-10-13] MEDS: Insulin DETEMIR 100 UNIT/ML X5UNITS SUBQ SCH (21:42)
[2020-10-14 02:28] LABS: Basophils % 0.3 %; Hematocrit 44.7 % (35.3-44.9); Immature Granulocytes % 1.2 % (0-4); Lymphocytes # 0.8 K/mcL (0.6-4.6); Lymphocytes % 6.1 %; Mean Corpuscular HGB Conc 31.3 g/dL (31.6-35.5); Mean Corpuscular Hemoglobin 26.7 pg (28.0-33.3); Mean Corpuscular Volume 85.3 fL (83.0-100.0); Mean Platelet Volume 9.3 fL (9.4-12.4); Monocytes % 7.5 %; Neutrophils # 10.9 K/mcL (1.6-8.9); Platelet Count 374 K/mcL (140-400); Red Blood Count 5.24 M/mcL (3.82-4.97); Red Cell Distribution Width 14.7 % (11.5-14.5); Segmented Neutrophils % 84.9 %; White Blood Count 12.9 K/mcL (4.3-11.1)
[2020-10-14 02:46] LABS: BUN/Creatinine Ratio 37 (6-26); Blood Urea Nitrogen 19 mg/dL (8-23); Calcium 8.4 mg/dL (8.6-10.3); Carbon Dioxide 29 mEq/L (23-29); Chloride 100 mEq/L (98-107); Glucose 194 mg/dL (70-105); Magnesium 1.9 mg/dL (1.6-2.6); Osmolality,Calculated 294 (280-300); Phosphorous 2.6 mg/dL (2.7-4.5); Potassium 3.5 mEq/L (3.5-5.1); Sodium 138 mEq/L (136-145); eGFR For African Americans > 60 (> 60); eGFR For Non-African Americans > 60 (> 60)
[2020-10-14] MEDS: Metoprolol XL (24 HR) Succ 50 MG TAB.ER.24H PO SCH (09:20)
[2020-10-14] MEDS: DilTIAZem CD (24hr) 240 MG CAP.ER.24H PO SCH (09:20)
[2020-10-14] MEDS: Furosemide 40 MG TABLET PO SCH ×2 (09:20→20:05)
[2020-10-14] MEDS: Apixaban 5 MG TABLET PO SCH ×2 (09:20→20:05)
[2020-10-14] MEDS: Dexamethasone Sodium Phos/PF 10 MG/ML VIAL IVP SCH (09:20)
[2020-10-14] MEDS: Insulin LISPRO 300 UNITS/3 ML VIAL SUBQ SCH ×4 (09:42→21:00)
[2020-10-14] MEDS: *HR* LORazepam 1 MG TABLET PO PRN ×2 (09:57→20:06)
[2020-10-14] MEDS: Acetaminophen 325 MG TABLET PO PRN (14:33)
[2020-10-14] MEDS: Insulin DETEMIR 100 UNIT/ML X5UNITS SUBQ SCH (20:06)
[2020-10-15 07:38] LABS: Basophils % 0.4 %; Eosinophils % 0.2 %; Hematocrit 45.1 % (35.3-44.9); Hemoglobin 14.5 g/dL (11.5-15.4); Lymphocytes # 1.3 K/mcL (0.6-4.6); Lymphocytes % 12.3 %; Mean Corpuscular HGB Conc 32.2 g/dL (31.6-35.5); Mean Corpuscular Hemoglobin 27.3 pg (28.0-33.3); Mean Corpuscular Volume 84.8 fL (83.0-100.0); Mean Platelet Volume 9.5 fL (9.4-12.4); Monocytes # 1.3 K/mcL (0.0-1.3); Monocytes % 11.8 %; Neutrophils # 7.9 K/mcL (1.6-8.9); Platelet Count 381 K/mcL (140-400); Red Blood Count 5.32 M/mcL (3.82-4.97); Red Cell Distribution Width 14.7 % (11.5-14.5); Segmented Neutrophils % 74.3 %; White Blood Count 10.6 K/mcL (4.3-11.1)
[2020-10-15 07:57] LABS: BUN/Creatinine Ratio 30 (6-26); Blood Urea Nitrogen 18 mg/dL (8-23); Calcium 8.5 mg/dL (8.6-10.3); Carbon Dioxide 29 mEq/L (23-29); Chloride 98 mEq/L (98-107); Glucose 136 mg/dL (70-105); Magnesium 1.9 mg/dL (1.6-2.6); Osmolality,Calculated 288 (280-300); Phosphorous 3.1 mg/dL (2.7-4.5); Potassium 3.3 mEq/L (3.5-5.1); Sodium 137 mEq/L (136-145); eGFR For African Americans > 60 (> 60); eGFR For Non-African Americans > 60 (> 60)
[2020-10-15] MEDS: Dexamethasone Sodium Phos/PF 10 MG/ML VIAL IVP SCH (08:54)
[2020-10-15] MEDS: Furosemide 40 MG TABLET PO SCH ×2 (08:57→20:11)
[2020-10-15] MEDS: Apixaban 5 MG TABLET PO SCH ×2 (08:57→20:11)
[2020-10-15] MEDS: DilTIAZem CD (24hr) 240 MG CAP.ER.24H PO SCH (08:58)
[2020-10-15] MEDS: Metoprolol XL (24 HR) Succ 50 MG TAB.ER.24H PO SCH (08:59)
[2020-10-15] MEDS: Insulin LISPRO 300 UNITS/3 ML VIAL SUBQ SCH ×4 (09:35→21:02)
[2020-10-15] MEDS: *HR* LORazepam 1 MG TABLET PO PRN ×2 (13:21→21:35)
[2020-10-15] MEDS: Nystatin POWDER 30 GM BOTTLE TP SCH ×2 (14:28→21:00)
[2020-10-15] MEDS: Insulin DETEMIR 100 UNIT/ML X5UNITS SUBQ SCH (20:12)
[2020-10-16 09:16] LABS: Basophils % 0.2 %; Hematocrit 46.8 % (35.3-44.9); Immature Granulocytes % 1.5 % (0-4); Lymphocytes # 1.1 K/mcL (0.6-4.6); Lymphocytes % 7.8 %; Mean Corpuscular HGB Conc 32.1 g/dL (31.6-35.5); Mean Corpuscular Hemoglobin 27.1 pg (28.0-33.3); Mean Corpuscular Volume 84.6 fL (83.0-100.0); Mean Platelet Volume 9.6 fL (9.4-12.4); Monocytes % 7.2 %; Neutrophils # 11.5 K/mcL (1.6-8.9); Platelet Count 381 K/mcL (140-400); Red Blood Count 5.53 M/mcL (3.82-4.97); Red Cell Distribution Width 14.4 % (11.5-14.5); Segmented Neutrophils % 83.3 %; White Blood Count 13.9 K/mcL (4.3-11.1)
[2020-10-16] MEDS: Dexamethasone Sodium Phos/PF 10 MG/ML VIAL IVP SCH (09:31)
[2020-10-16] MEDS: Apixaban 5 MG TABLET PO SCH ×2 (09:31→20:10)
[2020-10-16] MEDS: *HR* LORazepam 0.5 MG TABLET PO PRN ×2 (09:31→18:03)
[2020-10-16] MEDS: Metoprolol XL (24 HR) Succ 50 MG TAB.ER.24H PO SCH (09:31)
[2020-10-16] MEDS: DilTIAZem CD (24hr) 240 MG CAP.ER.24H PO SCH (09:31)
[2020-10-16] MEDS: Nystatin POWDER 30 GM BOTTLE TP SCH ×2 (09:32→20:10)
[2020-10-16] MEDS: Insulin LISPRO 300 UNITS/3 ML VIAL SUBQ SCH ×4 (09:32→22:57)
[2020-10-16] MEDS: Furosemide 40 MG TABLET PO SCH ×2 (09:32→20:10)
[2020-10-16 09:35] LABS: BUN/Creatinine Ratio 31 (6-26); Blood Urea Nitrogen 17 mg/dL (8-23); Calcium 8.9 mg/dL (8.6-10.3); Carbon Dioxide 28 mEq/L (23-29); Chloride 95 mEq/L (98-107); Glucose 246 mg/dL (70-105); Magnesium 1.9 mg/dL (1.6-2.6); Osmolality,Calculated 284 (280-300); Phosphorous 2.9 mg/dL (2.7-4.5); Potassium 3.8 mEq/L (3.5-5.1); Sodium 132 mEq/L (136-145); eGFR For African Americans > 60 (> 60); eGFR For Non-African Americans > 60 (> 60)
[2020-10-16] MEDS: Insulin DETEMIR 100 UNIT/ML X5UNITS SUBQ SCH (20:26)
[2020-10-17] MEDS: Metoprolol XL (24 HR) Succ 50 MG TAB.ER.24H PO SCH (09:24)
[2020-10-17] MEDS: Furosemide 40 MG TABLET PO SCH (09:24)
[2020-10-17] MEDS: DilTIAZem CD (24hr) 240 MG CAP.ER.24H PO SCH (09:24)
[2020-10-17] MEDS: Apixaban 5 MG TABLET PO SCH (09:24)
[2020-10-17] MEDS: Nystatin POWDER 30 GM BOTTLE TP SCH (09:25)
[2020-10-17] MEDS: Dexamethasone Sodium Phos/PF 10 MG/ML VIAL IVP SCH (09:25)
[2020-10-17] MEDS: Insulin LISPRO 300 UNITS/3 ML VIAL SUBQ SCH ×2 (09:25→12:51)
[2020-10-17 14:35] VITALS: BP 149/72
[2020-10-17] MEDS: Acetaminophen 325 MG TABLET PO PRN (15:35)
[2020-10-17] MEDS: *HR* LORazepam 0.5 MG TABLET PO PRN (15:35)
== END 2020-10-17 17:16 | DRG 177 ==
LOC: 2NENU 01:56 → EMEROOARM 01:56 → SUATTDRO 04:55 → 2NENU 05:10 → SUATTDRO 10-14 18:55
PROVIDERS: ADMIT Student in an Organized Health Care Education/Training Program; ATTEND Internal Medicine